=== PATIENT | male | born 1955 | race Two or more races ===

== ENCOUNTER 2016-12-30 12:40 | Emergency (ER) | payer BC ==
[~2016-12-30] VITALS: Ht 170.2 cm; Wt 127.0 kg
[~2016-12-30 12:40] MED LIST: CYCL1TAB18 PO; DOXA4TAB40 PO; FLUT250M2 IN; IBUP800T24 PO; MAGN400T23 PO; MECL25TA94 PO; TADA5TAB11 PO; TAM04C PO; TRAM-297 PO
[2016-12-30] MEDS ORDERED: SODIUM CHLORIDE 0.9% 1,000 ML IV ONE (14:12)
[2016-12-30 14:47] LABS: Basophils # (auto) 0.1 uL; Basophils % (auto) 0.7 % (0.0-2.0); Eosinophils # (auto) 0.1 uL; Hematocrit 52.7 % (41.0-53.0); Hemoglobin 17.5 g/dL (13.5-17.5); Lymphocytes # (auto) 1.9 uL; Lymphocytes % (auto) 18.3 % (10.0-50.0); Mean Corpuscular Hemoglobin 30.7 pg (28.0-32.0); Mean Corpuscular Hgb Conc. 33.3 g/dL (32.0-36.0); Mean Corpuscular Volume 92.4 fL (80.0-100.0); Mean Platelet Volume 9.6 fL (7.4-10.4); Monocytes # (auto) 0.7 uL; Monocytes % (auto) 6.5 % (0.0-12.0); Neutrophils # (auto) 7.6 uL; Neutrophils % (auto) 73.5 % (37.0-80.0); Platelet Count (auto) 195 10^3/uL (140-450); Red Cell Distribution Width 13.6 % (11.6-16.0); White Blood Cell 10.4 10^3/uL (4.4-10.8)
[2016-12-30 15:01] LABS: INR 1.03 (0.9-1.15); Partial Thromboplastin Time 26.2 sec (22.64-33.71); Prothrombin Time 10.6 sec (9.37-12.3)
[2016-12-30 15:07] LABS: Albumin 4.2 g/dL (3.4-5.0); Anion Gap 8 (5-15); BUN/Creatinine Ratio 22.5; Blood Urea Nitrogen 23 mg/dL (7-18); Calcium 8.5 mg/dL (8.5-10.1); Carbon Dioxide 31 mmol/L (21-32); Chloride 94 mmol/L (98-107); GFR African American 95 mL/min; GFR Non-African American 79 mL/min; Glucose 170 mg/dL (74-106); Potassium 3.5 mmol/L (3.5-5.1); Sodium 133 mmol/L (136-145)
[2016-12-30 15:11] LABS: Alkaline Phosphatase 119 U/L (45-117); Aspartate Aminotransferase 30 U/L (15-37); Bilirubin, Total 0.5 mg/dL (0.2-1.0); Total Protein 8.1 g/dL (6.4-8.2)
[2016-12-30 17:00] VITALS: BP 118/74
[2016-12-30 18:14] LABS: Urine Bilirubin Negative (Negative); Urine Blood TRACE /uL (Negative); Urine Color Yellow (Yellow); Urine Glucose Normal (Normal); Urine Ketone Negative (Negative); Urine Nitrite Negative (Negative); Urine RBC 3 /hpf (0 - 3); Urine Squamous Epithelial Cell FEW /hpf (<5); Urine Urobilinogen Normal (Negative)
== END 2016-12-30 17:31 | disposition home or self-care (01) ==
LOC: ER 12:50
DX: M62.838 Other muscle spasm (principal); R42 Dizziness and giddiness; I10 Essential (primary) hypertension; M54.9 Dorsalgia, unspecified; K46.9 Unspecified abdominal hernia without obstruction or gangrene; Z90.89 Acquired absence of other organs; Z91.041 Radiographic dye allergy status
CPT/HCPCS: 36415; 71020; 80053; 81001; 84484; 85025; 85610; 85730; 93005; 94761; 96360

== ENCOUNTER 2021-08-25 14:01 | Emergency (ER) | payer BC, OTHER ==
[~2021-08-25] VITALS: Ht 170.2 cm; Wt 122.9 kg
[~2021-08-25 14:01] MED LIST changes: +CYCL-839 PO; -CYCL1TAB18 PO; -DOXA4TAB40 PO; +DOXA4TAB6 PO; -IBUP800T24 PO; +IBUP800T27 PO
[2021-08-25 21:10] LABS: Urine Bacteria FEW /hpf (None Seen); Urine Blood Negative /uL (Negative); Urine Mucus FEW (None Seen); Urine Specific Gravity 1.023 (1.001-1.035); Urine WBC 60 /hpf (0 - 3)
[2021-08-25 21:30] VITALS: BP 144/63
== END 2021-08-25 21:44 | disposition home or self-care (01) ==
LOC: ER 14:01
DX: N39.0 Urinary tract infection, site not specified (principal); N43.3 Hydrocele, unspecified; J44.9 Chronic obstructive pulmonary disease, unspecified; E11.9 Type 2 diabetes mellitus without complications; I10 Essential (primary) hypertension
CPT/HCPCS: 76870; 81001

== ENCOUNTER → 2023-06-09 | Outpatient (CLI) | payer OTHER ==
[~2023-06-09] VITALS: Ht 170.2 cm; Wt 120.2 kg
[~2023-06-09] MED LIST changes: +ADENOSINE 101 MG in GIVE UN-DILUTED 0 ML IV STA; -DOXA4TAB6 PO; +DOXA4TAB83 PO; +IBUP-1456 PO; -IBUP800T27 PO; -TAM04C PO; +TAMS-35 PO
== END | disposition home or self-care (01) ==
LOC: XYW 09:13
PROVIDERS: ATTEND Internal Medicine
DX: Z01.810 Encounter for preprocedural cardiovascular examination (principal); I25.9 Chronic ischemic heart disease, unspecified; R07.9 Chest pain, unspecified; I10 Essential (primary) hypertension; E11.9 Type 2 diabetes mellitus without complications
CPT/HCPCS: 78452; 93017; A9500; J0153

== ENCOUNTER 2023-08-19 09:31 | Day surgery (SDC) | payer OTHER ==
[~2023-08-19] VITALS: Ht 170.2 cm; Wt 117.9 kg
[2023-08-19] VITALS (9 sets, daily range): BP systolic 121–155; BP diastolic 64–96; PULSE 64–70; RESP 11–17; TEMP 97.8; O2SAT 89–93
[~2023-08-19 09:31] MED LIST changes: -ADENOSINE 101 MG in GIVE UN-DILUTED 0 ML IV STA; +ATOR20TA50 PO; -DOXA4TAB83 PO; +FINA5TAB4 PO; +FURO20TA3 PO; +GLIP5TAB12 PO; +HYDR-4902 PO; -IBUP-1456 PO; +INSUINJ37 SC; +LISI40TA16 PO; -MAGN400T23 PO; +METF-370 PO; -TADA5TAB11 PO; -TAMS-35 PO; +TRAZ-228 PO
[2023-08-19] MEDS ORDERED: ANGIOMAX 250 MG VIAL IV ONE (11:34)
[2023-08-19] MEDS ORDERED: fentaNYL CITRATE 100 MCG/2 ML VL ONE (11:35)
[2023-08-19] MEDS ORDERED: HEPARIN SODIUM (PORCINE) 5000 UNITS/ML 1ML VIAL ONE (11:35)
[2023-08-19] MEDS ORDERED: SODIUM CHL 0.9% 0 ML ONE (11:35)
[2023-08-19] MEDS ORDERED: LIDOCAINE 2%HCL (LOCAL ANESTH.) INJ 20ML MDV ONE (11:35)
[2023-08-19] MEDS ORDERED: VERAPAMIL 2.5MG/ML INJ 2ML VIAL IV ONE (11:35)
[2023-08-19] MEDS ORDERED: MIDAZOLAM HCL 2MG/2ML 2ml VIAL (1mg/ml) ONE (11:35)
[2023-08-19] MEDS ORDERED: diphenhdrAMINE HCL 50 MG/1 ML VL ONE (11:47)
[2023-08-19] MEDS ORDERED: FAMOTIDINE (10MG/ML) 2ML VL IV ONE (11:47)
[2023-08-19] MEDS ORDERED: methylPREDNISolone SOD SUCC 125 MG/2 ML VL ONE (11:47)
[2023-08-19] MEDS ORDERED: EPINEPHrine HCL 1 MG/10 ML SYRG ONE (12:13)
[2023-08-19] MEDS ORDERED: IODIXANOL 320MG/ML 100ML BTL IV ONE (12:13)
== END 2023-08-19 14:55 | disposition home or self-care (01) ==
LOC: CATH 09:31
PROVIDERS: ATTEND Internal Medicine
DX: I25.10 Atherosclerotic heart disease of native coronary artery without angina pectoris (principal); I25.9 Chronic ischemic heart disease, unspecified
CPT/HCPCS: 93458; C1894; J1200; J1644; J2250; J2930; J3010; J3490; Q9967; 99152

== ENCOUNTER 2024-06-14 06:07 | Inpatient (IN) | payer OTHER ==
[~2024-06-14] VITALS: Ht 170.2 cm; Wt 112.9 kg
[~2024-06-14 06:07] MED LIST changes: -ATOR20TA50 PO; +ATOR40TA52 PO; -CYCL-839 PO; -FINA5TAB4 PO; -FLUT250M2 IN; -GLIP5TAB12 PO; +GLIP5TAB21 PO; +IBUP-1455 PO; -MECL25TA94 PO; +OMEP-448 PO; +SITA100T7 PO; -TRAM-297 PO
[2024-06-14] MEDS: LIDOCAINE 2% JELLY 11ml (GLYDO) ONE (06:37)
[2024-06-14] MEDS: TRANEXAMIC ACID 20 ML ONE (06:37)
[2024-06-14] MEDS: levoFLOXacin 750MG 150 ML IV ONE (07:00)
[2024-06-14] MEDS ORDERED: LIDOCAINE 1% (LOCAL ANESTH.) PF 5ml SDV ONE (07:02)
[2024-06-14] MEDS: CHLORHEXIDINE 4% TOPICAL soln 118ml TOP ONE (07:09)
[2024-06-14] MEDS ORDERED: fentaNYL CITRATE 100 MCG/2 ML VL ONE ×2 (07:14→08:34)
[2024-06-14] MEDS ORDERED: KETAMINE 50mg/ML 1ml syringe ONE (07:14)
[2024-06-14] MEDS ORDERED: MEPERIDINE HCL (50 MG/ML) 1 ML VIAL ONE (07:14)
[2024-06-14] MEDS ORDERED: DexAMETHasone SOD PHOS 10MG/1ML VIAL INJ ONE (07:15)
[2024-06-14] MEDS ORDERED: SODIUM CHLORIDE LOCK 50 ML ONE ×2 (07:15→09:15)
[2024-06-14] MEDS ORDERED: ONDANSETRON HCL 4 MG/2 ML VIAL ONE (07:15)
[2024-06-14] MEDS ORDERED: PROPOFOL 10 MG/ML 20 ML IV ONE ×2 (07:15→09:15)
[2024-06-14] MEDS ORDERED: ROCURONIUM 10MG/ML 10ML VIAL IV ONE (07:15)
[2024-06-14] MEDS ORDERED: MIDAZOLAM HCL 2MG/2ML 2ml VIAL (1mg/ml) ONE (07:15)
[2024-06-14] MEDS ORDERED: LIDOCAINE 1% INJ PF 5ML AMP ONE (07:15)
[2024-06-14] MEDS: ceFAZolin 2 GM/D5W50ml 50 ML IV ONE (07:17)
[2024-06-14 08:27] LABS: Base Excess -3.4 mmol/L (-2.0-3.0)
[2024-06-14] MEDS ORDERED: ONDANSETRON HCL 4 MG/2 ML VIAL IV PRN (10:45)
[2024-06-14] MEDS ORDERED: ACETAMINOPHEN 325 MG TAB PO PRN (10:45)
[2024-06-14] MEDS ORDERED: NITROGLYCERIN 0.4 MG SL TAB SL PRN (10:45)
[2024-06-14 10:46] VITALS: PULSE 79; RESP 16; O2SAT 93
[2024-06-14] MEDS ORDERED: MORPHINE SULFATE INJ 2 MG/ml SYRG IV PRN (11:00)
[2024-06-14] MEDS ORDERED: HYDROmorphone HCL 2 MG/ML VL/or syr IV PRN ×2 (11:00)
[2024-06-14] MEDS: KETOROLAC TROMETH 30 MG/ML 1ML VIAL IV ONE (11:00)
[2024-06-14] MEDS ORDERED: fentaNYL CITRATE 100 MCG/2 ML VL IV PRN (11:00)
[2024-06-14] MEDS: METOCLOPRAMIDE HCL 5MG/ml INJ 2ml VIAL IV ONE (11:00)
[2024-06-14] MEDS: ACCU-CHEK COMFORT CURVE STRIP VI ONE (11:00)
[2024-06-14] MEDS: hydrALAZINE HCL 20 MG/ML VL ONE (13:13)
[2024-06-14] MEDS: hydrALAZINE HCL 20 MG/ML VL IV ONE ×2 (13:13→13:15)
[2024-06-14 14:22] VITALS: BP 170/96; RESP 18; TEMP 97.4; O2SAT 95
[2024-06-14 14:24] VITALS: BP 170/96; PULSE 95; RESP 18; TEMP 97.4; O2SAT 95
[2024-06-14] MEDS: CYCLOBENZAPRINE HCL 10 MG TAB PO SCH (14:40)
[2024-06-14] MEDS: ceFAZolin 1GM/50ML 50 ML IV SCH (14:40)
[2024-06-14] MEDS: MORPHINE SULFATE INJ 2 MG/ml SYRG IV PRN ×2 (14:42→23:01)
[2024-06-14] MEDS ORDERED: MECL-90 PO (15:56)
[2024-06-14 17:30] VITALS: BP 180/100; PULSE 99; RESP 20; TEMP 98.3; O2SAT 94
[2024-06-14] MEDS: LISINOPRIL 20 MG TAB PO ONE (18:40)
[2024-06-14] MEDS ORDERED: LOSARTAN POTASSIUM 50 MG TAB PO ONE (18:45)
[2024-06-14 20:00] VITALS: PULSE 100; PULSE 110; RESP 20; O2SAT 96
[2024-06-14] MEDS: HYDROcodone-ACET 10/325MG TAB PO PRN (20:28)
[2024-06-14] MEDS: D5W/SOD CHLO 0.9% 1,000 ML IV SCH (20:45)
[2024-06-14 21:00] VITALS: PULSE 112; RESP 22; TEMP 98.8; O2SAT 93
[2024-06-14] MEDS: DOCUSATE SOD 100 MG CAP PO SCH (22:00)
[2024-06-14] MEDS: hydrALAZINE HCL 20 MG/ML VL IV PRN (22:11)
[2024-06-15] VITALS (13 sets, daily range): BP systolic 147–180; BP diastolic 73–95; PULSE 100–123; RESP 20–22; TEMP 98.2–98.8; O2SAT 85–96
[2024-06-15] MEDS: HYDROcodone-ACET 10/325MG TAB PO PRN (02:22)
[2024-06-15] MEDS ORDERED: LOSARTAN POTASSIUM 50 MG TAB PO SCH (10:00)
[2024-06-15] MEDS: LISINOPRIL 20 MG TAB PO SCH (10:12)
[2024-06-15] MEDS: MORPHINE SULFATE INJ 2 MG/ml SYRG IV PRN (10:13)
[2024-06-15] MEDS: ACETYLCYSTEINE 20%(200MG/ML) SOL 4ML NEB SCH (18:50)
[2024-06-15] MEDS: ALBUTEROL SULF 2.5 MG/0.5ML(0.5%) NEB SOLN NEB SCH (18:50)
[2024-06-15] MEDS: IPRATROPIUM BROM 0.5 MG/2.5ML INH SOL NEB SCH (18:50)
[2024-06-16] VITALS (19 sets, daily range): BP systolic 125–181; BP diastolic 75–94; PULSE 104–181; RESP 16–91; TEMP 97.9–100.2; O2SAT 87–96
[2024-06-16 13:53] LABS: Basophils # (auto) 0.1 10 ^3/uL (0-0.2); Basophils % (auto) 0.5 % (0.0-2.0); Eosinophils # (auto) 0 10 ^3/uL (0-0.8); Hematocrit 46.8 % (41.0-53.0); Hemoglobin 15.8 g/dL (13.5-17.5); Lymphocytes # (auto) 0.9 10 ^3/uL (0.4-5.4); Lymphocytes % (auto) 4.6 % (10.0-50.0); Mean Corpuscular Hemoglobin 29.8 pg (28.0-32.0); Mean Corpuscular Hgb Conc. 33.8 g/dL (32.0-36.0); Mean Corpuscular Volume 88.3 fL (80.0-100.0); Monocytes # (auto) 1.4 10 ^3/uL (0-1.3); Monocytes % (auto) 6.9 % (0.0-12.0); Neutrophils # (auto) 17.7 10 ^3/uL (1.6-8.6); Platelet Count (auto) 161 10^3/uL (140-450); Red Cell Distribution Width 16.1 % (11.8-14.3); White Blood Cell 20.1 10^3/uL (4.4-10.8)
[2024-06-16 14:07] LABS: Chloride 101 mmol/L (98-107); Potassium 3.4 mmol/L (3.5-5.1); Sodium 133 mmol/L (136-145)
[2024-06-16 14:08] LABS: Anion Gap 7 (5-15); Calcium 9.6 mg/dL (8.7-10.4); Carbon Dioxide 25 mmol/L (20-30)
[2024-06-16 14:13] LABS: BUN/Creatinine Ratio 12.8 (10.0-20.0); Blood Urea Nitrogen 10 mg/dL (9-23); Glucose 251 mg/dL (74-106)
[2024-06-16] MEDS ORDERED: DEXTROSE (50%) 50ML SYRG IV PRN (21:30)
[2024-06-16] MEDS: InsuLIN REG 1unit/0.01ml Soln (100units/ml) SC SCH (22:00)
[2024-06-16] MEDS: ACCU-CHEK COMFORT CURVE STRIP VI SCH (22:39)
[2024-06-17] VITALS (18 sets, daily range): BP systolic 125–144; BP diastolic 74–92; PULSE 93–144; RESP 16–76; TEMP 97.6–98.9; O2SAT 91–96
[2024-06-17] MEDS ORDERED: hydrALAZINE HCL 20 MG/ML VL IV PRN (01:00)
[2024-06-17] MEDS: SODIUM CHLORIDE 0.9% 250 ML IV ONE (01:45)
[2024-06-17 01:46] LABS: Urine Bacteria FEW /hpf (None Seen); Urine Blood 1+ /uL (Negative); Urine Clarity Clear (Clear); Urine Color Yellow (Yellow); Urine Hyaline Cast FEW /lpf (0 - 2); Urine Mucus FEW (None Seen); Urine Protein, UAD 1+ (Negative); Urine Specific Gravity 1.025 (1.001-1.035); Urine Urobilinogen Normal (Negative); Urine WBC 6 /hpf (0 - 3); Urine pH 6.5 (5.0-9.0)
[2024-06-17 02:19] LABS: Hematocrit 42.4 % (41.0-53.0); Hemoglobin 14.5 g/dL (13.5-17.5)
[2024-06-17] MEDS: PIPERACILLIN-TAZOB 3.375GM 100 ML IV SCH (06:03)
[2024-06-17 12:51] LABS: Basophils # (auto) 0.1 10 ^3/uL (0-0.2); Basophils % (auto) 0.7 % (0.0-2.0); Eosinophils # (auto) 0 10 ^3/uL (0-0.8); Eosinophils % (auto) 0.2 % (0.0-7.0); Hematocrit 42.8 % (41.0-53.0); Hemoglobin 14.8 g/dL (13.5-17.5); Lymphocytes # (auto) 1.4 10 ^3/uL (0.4-5.4); Lymphocytes % (auto) 8.8 % (10.0-50.0); Mean Corpuscular Hemoglobin 30.6 pg (28.0-32.0); Mean Corpuscular Hgb Conc. 34.6 g/dL (32.0-36.0); Mean Corpuscular Volume 88.3 fL (80.0-100.0); Monocytes # (auto) 1.3 10 ^3/uL (0-1.3); Monocytes % (auto) 8.4 % (0.0-12.0); Neutrophils # (auto) 12.7 10 ^3/uL (1.6-8.6); Neutrophils % (auto) 81.9 % (37.0-80.0); Nucleated Red Blood Cells % 0.1 %; Platelet Count (auto) 156 10^3/uL (140-450); Red Blood Cells 4.84 10^6/uL (4.5-5.90); Red Cell Distribution Width 15.7 % (11.8-14.3); White Blood Cell 15.5 10^3/uL (4.4-10.8)
[2024-06-17 13:28] LABS: Alanine Aminotransferase 16 U/L (7-40); Albumin 4.3 g/dL (3.2-4.8); Alkaline Phosphatase 86 U/L (46-116); Anion Gap 5 (5-15); Aspartate Aminotransferase 15 U/L (13-40); BUN/Creatinine Ratio 16.5 (10.0-20.0); Blood Urea Nitrogen 13 mg/dL (9-23); Calcium 9.4 mg/dL (8.7-10.4); Carbon Dioxide 28 mmol/L (20-30); Chloride 103 mmol/L (98-107); Glucose 244 mg/dL (74-106); Potassium 3.3 mmol/L (3.5-5.1); Sodium 136 mmol/L (136-145)
[2024-06-17 13:29] LABS: Bilirubin, Total 0.7 mg/dL (0.2-1.0); Total Protein 7.6 g/dL (5.7-8.2)
[2024-06-17] MEDS: POTASSIUM CHLORIDE 40 MEQ, LIDOCAINE 1% (LOCAL ANESTH.) 4 ML in SODIUM CHL 0.9% 250 ML IV ONE (14:48)
[2024-06-18] VITALS (17 sets, daily range): BP systolic 121–170; BP diastolic 77–87; PULSE 89–122; RESP 18–24; TEMP 97.5–98.5; O2SAT 88–100
[2024-06-18 06:51] LABS: Basophils # (auto) 0 10 ^3/uL (0-0.2); Basophils % (auto) 0.4 % (0.0-2.0); Eosinophils # (auto) 0.1 10 ^3/uL (0-0.8); Eosinophils % (auto) 1.5 % (0.0-7.0); Hematocrit 39.2 % (41.0-53.0); Hemoglobin 13.8 g/dL (13.5-17.5); Lymphocytes # (auto) 1.1 10 ^3/uL (0.4-5.4); Lymphocytes % (auto) 10.6 % (10.0-50.0); Mean Corpuscular Hemoglobin 31.3 pg (28.0-32.0); Mean Corpuscular Hgb Conc. 35.2 g/dL (32.0-36.0); Mean Corpuscular Volume 88.8 fL (80.0-100.0); Monocytes % (auto) 9.6 % (0.0-12.0); Neutrophils # (auto) 7.8 10 ^3/uL (1.6-8.6); Neutrophils % (auto) 77.9 % (37.0-80.0); Platelet Count (auto) 137 10^3/uL (140-450); Red Blood Cells 4.42 10^6/uL (4.5-5.90); Red Cell Distribution Width 16.3 % (11.8-14.3)
[2024-06-18 07:10] LABS: Anion Gap 6 (5-15); Calcium 8.8 mg/dL (8.7-10.4); Carbon Dioxide 25 mmol/L (20-30); Chloride 106 mmol/L (98-107); Potassium 3.4 mmol/L (3.5-5.1); Sodium 137 mmol/L (136-145)
[2024-06-18 07:16] LABS: BUN/Creatinine Ratio 19.7 (10.0-20.0); Blood Urea Nitrogen 13 mg/dL (9-23); Glucose 225 mg/dL (74-106)
[2024-06-18 07:17] LABS: Magnesium 2.2 mg/dL (1.6-2.6)
[2024-06-18] MEDS: POTASSIUM CHL 20 Meq TABLET PO ONE (17:44)
== END 2024-06-18 21:40 | DRG 471 ==
LOC: SUR 06:07 → TELE 10:42 → TELE-EAST 14:00 → TELE-WESTW 06-16 15:36
PROVIDERS: ADMIT Orthopaedic Surgery; ATTEND Internal Medicine
PROC: 01N10ZZ Release Cervical Nerve, Open Approach (ICD-10-PCS; 2024-06-14)
PROC: 00NW0ZZ Release Cervical Spinal Cord, Open Approach (ICD-10-PCS; 2024-06-14)
PROC: 0RB30ZZ Excision of Cervical Vertebral Disc, Open Approach (ICD-10-PCS; 2024-06-14)
PROC: 4A11X4G Monitoring of Peripheral Nervous Electrical Activity, Intraoperative, External Approach (ICD-10-PCS; 2024-06-14)
PROC: 0RG20A0 Fusion of 2 or more Cervical Vertebral Joints with Interbody Fusion Device, Anterior Approach, Anterior Column, Open Approach (ICD-10-PCS; principal; 2024-06-14 07:36)
DX: M48.02 Spinal stenosis, cervical region (principal); J96.20 Acute and chronic respiratory failure, unspecified whether with hypoxia or hypercapnia; R65.11 Systemic inflammatory response syndrome (SIRS) of non-infectious origin with acute organ dysfunction; J44.0 Chronic obstructive pulmonary disease with (acute) lower respiratory infection; M50.023 Cervical disc disorder at C6-C7 level with myelopathy; E11.9 Type 2 diabetes mellitus without complications; I10 Essential (primary) hypertension; M50.123 Cervical disc disorder at C6-C7 level with radiculopathy; M62.838 Other muscle spasm; E78.00 Pure hypercholesterolemia, unspecified; Z91.041 Radiographic dye allergy status; Z79.4 Long term (current) use of insulin
CPT/HCPCS: 36415; 36600; 71045; 72040; 76000; 80048; 80053; 81001; 82805; 82962; 83605; 83735; 85014; 85018; 85025; 86850; 86900; 86901; 87040; 87205; 92610; 94640; 97110; 97116; 97163; 97530; G0378; J1100; J1815; J2001; J2250; J2405; J2543; J2704; J7042

== ENCOUNTER 2024-06-19 08:55 | Emergency (ER) | payer OTHER ==
[~2024-06-19] VITALS: Ht 170.2 cm; Wt 90.0 kg
[~2024-06-19 08:55] MED LIST changes: +MECL-90 PO
[2024-06-19 09:29] VITALS: BP 176/90; PULSE 96; RESP 95; TEMP 98.1; O2SAT 95
== END 2024-06-19 10:43 | disposition home or self-care (01) ==
LOC: EDBD 08:55 → ER 08:55
DX: T81.89XD Other complications of procedures, not elsewhere classified, subsequent encounter (principal); I11.0 Hypertensive heart disease with heart failure; I50.9 Heart failure, unspecified; E11.9 Type 2 diabetes mellitus without complications; J44.9 Chronic obstructive pulmonary disease, unspecified; M19.90 Unspecified osteoarthritis, unspecified site; Z48.01 Encounter for change or removal of surgical wound dressing; Z85.9 Personal history of malignant neoplasm, unspecified; Z98.890 Other specified postprocedural states; Z79.899 Other long term (current) drug therapy; Z91.041 Radiographic dye allergy status; Y92.89 Other specified places as the place of occurrence of the external cause

== ENCOUNTER 2024-06-21 08:38 | Emergency (ER) | payer OTHER ==
[~2024-06-21] VITALS: Ht 167.6 cm; Wt 86.5 kg
[2024-06-21 09:00] VITALS: PULSE 95; RESP 16; O2SAT 90
[2024-06-21 09:41] LABS: Basophils # (auto) 0.1 10 ^3/uL (0-0.2); Basophils % (auto) 1.2 % (0.0-2.0); Eosinophils # (auto) 0.1 10 ^3/uL (0-0.8); Hematocrit 40.4 % (41.0-53.0); Lymphocytes # (auto) 1.2 10 ^3/uL (0.4-5.4); Lymphocytes % (auto) 14.2 % (10.0-50.0); Mean Corpuscular Hemoglobin 30.3 pg (28.0-32.0); Mean Corpuscular Hgb Conc. 34.6 g/dL (32.0-36.0); Mean Corpuscular Volume 87.6 fL (80.0-100.0); Monocytes # (auto) 0.8 10 ^3/uL (0-1.3); Neutrophils # (auto) 6.5 10 ^3/uL (1.6-8.6); Neutrophils % (auto) 74.6 % (37.0-80.0); Platelet Count (auto) 176 10^3/uL (140-450); Red Blood Cells 4.61 10^6/uL (4.5-5.90); Red Cell Distribution Width 15.4 % (11.8-14.3); White Blood Cell 8.7 10^3/uL (4.4-10.8)
[2024-06-21 09:59] LABS: Alanine Aminotransferase 21 U/L (7-40); Albumin 4.1 g/dL (3.2-4.8); Alkaline Phosphatase 84 U/L (46-116); Anion Gap 7 (5-15); Aspartate Aminotransferase 16 U/L (13-40); BUN/Creatinine Ratio 27.8 (10.0-20.0); Blood Urea Nitrogen 20 mg/dL (9-23); Calcium 8.9 mg/dL (8.7-10.4); Carbon Dioxide 27 mmol/L (20-30); Chloride 103 mmol/L (98-107); Glucose 171 mg/dL (74-106); Potassium 3.4 mmol/L (3.5-5.1); Sodium 137 mmol/L (136-145)
[2024-06-21 10:00] LABS: Bilirubin, Total 0.6 mg/dL (0.2-1.0); Total Protein 7.1 g/dL (5.7-8.2)
[2024-06-21 14:58] LABS: Urine Blood Negative /uL (Negative); Urine Clarity Clear (Clear); Urine Color Yellow (Yellow); Urine Protein, UAD TRACE (Negative); Urine Specific Gravity 1.027 (1.001-1.035); Urine Urobilinogen Normal (Negative)
[2024-06-21 17:34] VITALS: BP 130/74; PULSE 98; RESP 20; O2SAT 93
== END 2024-06-21 19:03 ==
LOC: ER 08:38 → EDBD 08:38 → ER 19:03
DX: N28.89 Other specified disorders of kidney and ureter (principal); E11.9 Type 2 diabetes mellitus without complications; E78.5 Hyperlipidemia, unspecified; I11.0 Hypertensive heart disease with heart failure; I50.9 Heart failure, unspecified; J44.9 Chronic obstructive pulmonary disease, unspecified; Z91.041 Radiographic dye allergy status
CPT/HCPCS: 36415; 74176; 80053; 81003; 85025

== ENCOUNTER 2024-09-27 15:54 | Emergency (ER) | payer OTHER ==
[~2024-09-27] VITALS: Ht 180.3 cm; Wt 91.0 kg
[2024-09-27 16:00] VITALS: BP 132/58; RESP 18; O2SAT 97
[2024-09-27 16:09] VITALS: PULSE 74
[2024-09-27] MEDS ORDERED: MECLIZINE HCL 25 MG TAB PO ONE (16:15)
--- NOTE | 2024-09-27 16:18 | ECG ---
[facility] Test Date: 2024-09-27 Test Time: 16:09:33 Pat Name: MERYL LEHMAN Department: er Room: Gender: M Forklift Picker: [email or web address] : 1955 Requested By: EMERGENCY EMERGENCY Order Number: [id number] Reading MD: Reyes Duarte Measurements Intervals [place] Rate: 74 P: 14 MO: 185 QRS: -69 QRSD: 102 T: 34 QT: 422 QTc: 469 Interpretive Statements Sinus rhythm Incomplete RBBB and LAFB RSR' in V1 or V2, right VCD or RVH Electronically Signed On 09-30-2024 10:24:09 PST by Reyes Duarte Please click the below link to view image of tracing.
--- NOTE | 2024-09-27 16:22 | ED.PDOC ---
HPI (NEURO) HPI Comments 69 year old male TANIYA presents to the ED with chief complaint of dizziness. Patient reports that he has been experiencing intermittent dizziness with associated SOB for the past 2 days. 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 Patient states he has been diagnosed with vertigo in the past. Patient's BG on scene was 206. Patient denies any chest pain, fever, chills, headache, N/V/D, or blurred vision. Chief Complaint: Dizziness Time Seen by MD: 16:17 Primary Care Provider: UNKNOWN Reviewed Notes: Nurses Notes, Factory Maintenance Technician Notes, Medications, Allergies Information Source: Patient, Spouse Mode of Arrival: EMS Severity: Moderate Dizziness/Weakness Severity: Unable to do activities Timing: Days Duration: Since onset Prehospital treatment: None Headache Quality: Aching Headache Location: Generalized Onset: At rest Circumstances: Spontaneous Symptoms: Vertigo Before: Normal Past Medical History PAST MEDICAL HISTORY: Arthritis, Cancer, CHF, COPD, DM, High Lipids, HTN Past Medical History (Other): Arrythmia Surgical History: Appendectomy, Tonsillectomy Surgical History (Other): Left hand surgery, neck surgery Family History Family History: Reviewed,noncontributory to illness Social History Smoker: Non-Smoker Alcohol: Denies ETOH Use Drugs: Denies Drug Use Lives In: Home Constitutional: denies: chills, diaphoresis, fatigue, fever, malaise, sweats, weakness, others EENTM: denies: blurred vision, double vision, ear bleeding, ear discharge, ear drainage, ear pain, ear ringing, eye pain, eye redness, hearing loss, mouth pain, mouth swelling, nasal discharge, nose bleeding, nose congestion, nose pain, photophobia, tearing, throat pain, throat swelling, voice changes, others Respiratory: reports: shortness of breath; denies: cough, hemoptysis, orthopnea, SOB at rest, SOB with excertion, stridor, wheezing, others Cardiovascular: denies: chest pain, dizzy spells, diaphoresis, Dyspnea on exe rtion, edema, irregular heart beat, left arm pain, lightheadedness, palpitations, PND, syncope, others Gastrointestinal: denies: abdomen distended, abdominal pain, blood streaked bowels, constipated, diarrhea, dysphagia, difficulty swallowing, hematemesis, melena, nausea, poor appetite, poor fluid intake, rectal bleeding, rectal pain, vomiting, others Genitourinary: denies: burning, dysuria, flank pain, frequency, hematuria, incontinence, penile discharge, penile sore, pain, testicle pain, testicle swelling, urgency, others Neurological: reports: dizziness; denies: fainting, headache, left sided numbness, left sided weakness, numbness, paresthesia, pre-existing deficit, ri ght sided numbness, right sided weakness, seizure, speech problems, tingling, tremors, weakness, others Musculoskeletal: denies: back pain, gout, joint pain, joint swelling, muscle pain, muscle stiffness, neck pain, others Integumetry: denies: bruises, change in color, change in hair/nails, dryness, laceration, lesions, lumps, rash, wounds, others Allergic/Immunocompromised: denies: Difficulty Healing, Frequent Infections, Hives, Itching, others Hematologic/Lymphatic: denies: anemia, blood clots, easy bleeding, easy bruising, swollen glands, others Endocrine: denies: excessive hunger, excessive sweating, excessive thirst, excessive urination, flushing, intolerance to cold, intolerance to heat, unexplained weight gain, unexplained weight loss, others Psychiatric: denies: anxiety, bipolar disorder, depression, hopeless, panic disorder, schizophrenia, sleepless, suicidal, others All Other Systems: Reviewed and Negative Physical Exam General Appearance: No Apparent Distress HEENT: Normal ENT Inspection, Pharynx Normal, TMs Normal Neck: Full Range of Motion, Non-Tender, Normal, Normal Inspection Respiratory: Chest Non-Tender, Lungs Clear, No Accessory Muscle Use, No Respiratory Distress, Normal Breath Sounds Cardiovascular: No Edema, No JVD, No Murmur, No Gallop, Normal Peripheral Pulses, Regular Rate/Rhythm Breast Exam: Deferred Gastrointestinal: No Organomegaly, Non Tender, No Pulsatile Mass, Normal Bowel Sounds, Soft Genitalia: Deferred Pelvic: Deferred Rectal: Deferred Extremities: No calf tenderness, Normal capillary refill, Normal inspection, Normal range of motion, Non-tender, No pedal edema Musculoskeletal : Apperance: Normal Neurologic: Alert, regulatory compliance director II-XII nml as Tested, No Motor Deficits, Normal Affect, Normal Mood, No Sensory Deficits Cerebellar Function: Normal Reflexes: Normal Skin: Dry, Normal Color, Warm Lymphatic: No Adenopathy Was a procedure done? Was a procedure done?: No Differential Diagnosis (SZ) Seizure: CVA/TIA, Idiopathic, Other (Vertigo) X-Ray, Labs, Meds, VS Vital Signs Date Time Temp Pulse Resp B/P (MAP) Pulse Ox O2 Delivery O2 Flow Rate FiO2 09/27/24 16:09 74 09/27/24 16:00 98.6 72 18 132/58 (82) 97 Lab Test 09/27/24 17:42 Range/Units White Blood Count 8.2 4.4-10.8 10^3/uL Red Blood Count 4.90 4.5-5.90 10^6/uL Hemoglobin 14.5 13.5-17.5 g/dL Hematocrit 43.5 41.0-53.0 % Mean Corpuscular Volume 88.7 80.0-100.0 fL Mean Corpuscular Hemoglobin 29.6 28.0-32.0 pg Mean Corpuscular Hemoglobin Concent 33.4 32.0-36.0 g/dL Red Cell Distribution Width 15.1 H 11.8-14.3 % Platelet Count 141 140-450 10^3/uL Mean Platelet Volume 9.3 6.9-10.8 fL Neutrophils (%) (Auto) 66.0 37.0-80.0 % Lymphocytes (%) (Auto) 23.2 10.0-50.0 % Monocytes (%) (Auto) 8.0 0.0-12.0 % Eosinophils (%) (Auto) 1.3 0.0-7.0 % Basophils (%) (Auto) 1.5 0.0-2.0 % Neutrophils # (Auto) 5.4 1.6-8.6 10 ^3/uL Lymphocytes # (Auto) 1.9 0.4-5.4 10 ^3/uL Monocytes # (Auto) 0.7 0-1.3 10 ^3/uL Eosinophils # (Auto) 0.1 0-0.8 10 ^3/uL Basophils # (Auto) 0.1 0-0.2 10 ^3/uL Nucleated Red Blood Cells 0.1 % Sodium Level 139 136-145 mmol/L Potassium Level 3.6 3.5-5.1 mmol/L Chloride Level 105 98-107 mmol/L Carbon Dioxide Level 26 20-31 mmol/L Anion Gap 8 5-15 Blood Urea Nitrogen 14 9-23 mg/dL Creatinine 0.82 0.700-1.30 mg/dL Glomerular Filtration Rate Calc 95 >90 mL/min BUN/Creatinine Ratio 17.1 10.0-20.0 Serum Glucose 178 H 74-106 mg/dL Calcium Level 9.1 8.7-10.4 mg/dL CT Head indicates: No acute intracranial process. The patient has a CBC and chemistry panel which are within normal limits The patient was given Antivert here in the emergency department's The patient will return to the emergency department's the condition worsens The patient will follow up with the primary care doctor The patient was given a prescription of Antivert. Images Reviewed?: Images reviewed and evaluated by me Time of 1ST Reevaluation: 18:54 Reevaluation 1ST: Improved Patient Education/Counseling: Diagnosis, Treatment, Prognosis, Need For Follow Up Family Education/Counseling: No Family Present Departure 1 Departure Time of Disposition: 18:55 Impression: Primary Impression: Vertigo Disposition: 01 HOME / SELF CARE / HOMELESS Condition: Fair Discharged With: Self Critical Care Note Critical Care Time?: No Stability Stability form required: No Heart Score Heart Score: Heart Score Response (Comments) Value History N/A 0 EKG N/A 0 Age N/A 0 Risk Factors N/A 0 Troponin N/A 0 Total 0 I personally scribed for JOSEPH FARIA MD ([email or web address]) on 09/27/24 at 16:22. Electronically submitted by Xiang Chilel ([email or web address]). I personally scribed for JOSEPH FARIA MD ([email or web address]) on 09/27/24 at 17:45. Electronically submitted by Xiang Chilel ([email or web address]). JOSEPH FARIA MD Sep 27, 2024 16:22
--- NOTE | 2024-09-27 17:00 | DVH ---
EXAM: CT HEAD WITHOUT CONTRAST HISTORY: dizziness COMPARISON: None TECHNIQUE: Axial images of the head were obtained and reformatted in coronal and sagittal planes. All CT scans at this medical facility are performed using dose modulation techniques as appropriate t o a performed exam including the following: Automated exposure control was utilized; adjustment of th e MA and/or KV according to patient size; and use of iterative reconstruction technique. CT Dose: CTDI volume is 60.31 mGy. Dose-length product is 1087.29 mGy*cm FINDINGS: There is no evidence of acute intracranial hemorrhage, mass, mass effect midline shift. There is no h ydrocephalus or extra-axial fluid collection. There are mild patchy chronic small-vessel ischemic ch anges in the supratentorial white matter. Jovel-white matter differentiation is maintained. The visualized paranasal sinuses and mastoid air cells are clear. The calvarium is intact. IMPRESSION: 1. No acute intracranial process. HS:Y
[2024-09-27 17:59] LABS: Basophils # (auto) 0.1 10 ^3/uL (0-0.2); Basophils % (auto) 1.5 % (0.0-2.0); Eosinophils # (auto) 0.1 10 ^3/uL (0-0.8); Eosinophils % (auto) 1.3 % (0.0-7.0); Hematocrit 43.5 % (41.0-53.0); Hemoglobin 14.5 g/dL (13.5-17.5); Lymphocytes # (auto) 1.9 10 ^3/uL (0.4-5.4); Lymphocytes % (auto) 23.2 % (10.0-50.0); Mean Corpuscular Hemoglobin 29.6 pg (28.0-32.0); Mean Corpuscular Hgb Conc. 33.4 g/dL (32.0-36.0); Mean Corpuscular Volume 88.7 fL (80.0-100.0); Monocytes # (auto) 0.7 10 ^3/uL (0-1.3); Neutrophils # (auto) 5.4 10 ^3/uL (1.6-8.6); Nucleated Red Blood Cells % 0.1 %; Platelet Count (auto) 141 10^3/uL (140-450); Red Cell Distribution Width 15.1 % (11.8-14.3); White Blood Cell 8.2 10^3/uL (4.4-10.8)
[2024-09-27 18:06] LABS: Chloride 105 mmol/L (98-107); Potassium 3.6 mmol/L (3.5-5.1); Sodium 139 mmol/L (136-145)
[2024-09-27 18:07] LABS: Anion Gap 8 (5-15); Calcium 9.1 mg/dL (8.7-10.4); Carbon Dioxide 26 mmol/L (20-31)
[2024-09-27 18:12] LABS: BUN/Creatinine Ratio 17.1 (10.0-20.0); Blood Urea Nitrogen 14 mg/dL (9-23)
[2024-09-27 18:17] LABS: Glucose 178 mg/dL (74-106)
== END 2024-09-27 22:50 | disposition home or self-care (01) ==
LOC: ER 15:54 → EDBD 15:54 → ER 22:49
DX: R55 Syncope and collapse (principal); R06.02 Shortness of breath; I11.0 Hypertensive heart disease with heart failure; I50.9 Heart failure, unspecified; E11.9 Type 2 diabetes mellitus without complications; J44.9 Chronic obstructive pulmonary disease, unspecified; M19.90 Unspecified osteoarthritis, unspecified site; Z90.49 Acquired absence of other specified parts of digestive tract; Z90.89 Acquired absence of other organs; Z98.890 Other specified postprocedural states
CPT/HCPCS: 36415; 70450; 80048; 85025; 93005

== ENCOUNTER 2025-01-04 18:55 | Emergency (ER) | payer OTHER ==
[~2025-01-04] VITALS: Ht 170.2 cm; Wt 109.2 kg
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
--- NOTE | 2025-01-04 19:35 | ECG ---
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
--- NOTE | 2025-01-04 19:51 | DVH ---
CHEST RADIOGRAPH Indication: htn Technique: Single frontal view of the chest was obtained COMPARISON: XY CHEST PORTABLE on DOS: 06/16/24 FINDINGS: Lines and Tubes: None Lungs: Clear Pleura: No effusion.No pneumothorax. Cardiomediastinal contours: Mild cardiomegaly. Bones: Unremarkable IMPRESSION: No acute abnormality identified. Mild cardiomegaly.
[2025-01-04 20:06] LABS: Chloride 103 mmol/L (98-107); Potassium 3.9 mmol/L (3.5-5.1)
[2025-01-04 20:07] LABS: Anion Gap 8 (5-15); Calcium 9.4 mg/dL (8.7-10.4); Carbon Dioxide 24 mmol/L (20-31)
[2025-01-04 20:09] LABS: Basophils # (auto) 0.1 10 ^3/uL (0-0.2); Basophils % (auto) 1.3 % (0.0-2.0); Eosinophils # (auto) 0.1 10 ^3/uL (0-0.8); Eosinophils % (auto) 0.8 % (0.0-7.0); Hematocrit 44.6 % (41.0-53.0); Hemoglobin 15.9 g/dL (13.5-17.5); Lymphocytes # (auto) 1.2 10 ^3/uL (0.4-5.4); Lymphocytes % (auto) 13.3 % (10.0-50.0); Mean Corpuscular Hemoglobin 31.1 pg (28.0-32.0); Mean Corpuscular Hgb Conc. 35.7 g/dL (32.0-36.0); Mean Corpuscular Volume 87.1 fL (80.0-100.0); Monocytes # (auto) 0.7 10 ^3/uL (0-1.3); Monocytes % (auto) 7.8 % (0.0-12.0); Neutrophils # (auto) 6.7 10 ^3/uL (1.6-8.6); Neutrophils % (auto) 76.8 % (37.0-80.0); Platelet Count (auto) 125 10^3/uL (140-450); Red Blood Cells 5.13 10^6/uL (4.5-5.90); White Blood Cell 8.8 10^3/uL (4.4-10.8)
[2025-01-04 20:12] LABS: BUN/Creatinine Ratio 18.8 (10.0-20.0); Blood Urea Nitrogen 15 mg/dL (9-23)
[2025-01-04 20:20] LABS: Sodium 135 mmol/L (136-145)
[2025-01-04 20:21] LABS: Glucose 172 mg/dL (74-106)
[2025-01-04 22:50] VITALS: BP 148/89; PULSE 87; RESP 18; TEMP 98.1; O2SAT 95
[2025-01-04] MEDS: cloNIDine HCL 0.1 MG TAB PO ONE (22:59)
== END 2025-01-04 23:47 | disposition home or self-care (01) ==
LOC: EDUNIT# 18:55 → EDBD 18:55 → ER 18:59
DX: F43.0 Acute stress reaction (principal); I11.0 Hypertensive heart disease with heart failure; I50.9 Heart failure, unspecified; E11.9 Type 2 diabetes mellitus without complications; E78.5 Hyperlipidemia, unspecified; M19.90 Unspecified osteoarthritis, unspecified site; J44.9 Chronic obstructive pulmonary disease, unspecified; Z90.49 Acquired absence of other specified parts of digestive tract; Z90.89 Acquired absence of other organs; Z91.040 Latex allergy status; Z79.899 Other long term (current) drug therapy; Z79.4 Long term (current) use of insulin; Z79.84 Long term (current) use of oral hypoglycemic drugs
CPT/HCPCS: 36415; 71045; 80048; 82947; 84484; 85025; 93005

== ENCOUNTER 2025-01-15 13:44 | Emergency (ER) | payer OTHER ==
[~2025-01-15] VITALS: Ht 170.2 cm; Wt 108.0 kg
--- NOTE | 2025-01-15 14:13 | ED.PDOC ---
HPI (NEURO) HPI Comments 69 y/o M, with PMHX of HTN, HLD, DM, arthritis CHF, cancer, COPD, and arthritis presents to the ED for CC of dizziness. Patient states, he has been having high blood pressure readings with associated symptoms of shortness of breath, numbness and tingling in the hands xdays. Patient denies active chest pain, palpitations, nausea, vomiting, or headache. No other symptoms or modifying factors present at this time. Chief Complaint: Dizziness Time Seen by MD: 14:06 Primary Care Provider: Reviewed Notes: Nurses Notes, Medications, Allergies Information Source: Patient Mode of Arrival: EMS Severity: Moderate Headache Severity: None Timing: Days Duration: Since onset Prehospital treatment: None Numbness Location: Generalized Onset: At rest Circumstances: Spontaneous Symptoms: Vertigo, Numbness History of: DM, Hypertension Modifying factors: Nothing Associated Signs and Symptoms: Numbness Past Medical History PAST MEDICAL HISTORY: Arthritis, Cancer, CHF, COPD, DM, High Lipids, HTN Surgical History: Appendectomy, Tonsillectomy Family History Family History: Reviewed,noncontributory to illness Social History Smoker: Non-Smoker Alcohol: Denies ETOH Use Drugs: Denies Drug Use Lives In: Home Constitutional: denies: chills, diaphoresis, fatigue, fever, malaise, sweats, weakness, others EENTM: denies: blurred vision, double vision, ear bleeding, ear discharge, ear drainage, ear pain, ear ringing, eye pain, eye redness, hearing loss, mouth pain, mouth swelling, nasal discharge, nose bleeding, nose congestion, nose pain, photophobia, tearing, throat pain, throat swelling, voice changes, others Respiratory: reports: shortness of breath; denies: cough, hemoptysis, orthopnea, SOB at rest, SOB with excertion, stridor, wheezing, others Cardiovascular: denies: chest pain, dizzy spells, diaphoresis, Dyspnea on ex ertion, edema, irregular heart beat, left arm pain, lightheadedness, palpitations, PND, syncope, others Gastrointestinal: denies: abdomen distended, abdominal pain, blood streaked bowels, constipated, diarrhea, dysphagia, difficulty swallowing, hematemesis, melena, nausea, poor appetite, poor fluid intake, rectal bleeding, rectal pain, vomiting, others Genitourinary: denies: burning, dysuria, flank pain, frequency, hematuria, incontinence, penile discharge, penile sore, pain, testicle pain, testicle swelling, urgency, others Neurological: reports: dizziness, numbness, tingling; denies: fainting, headache, left sided numbness, left sided weakness, paresthesia, pre-existing deficit, right sided numbness, right sided weakness, seizure, speech problems, tremors, weakness, others Musculoskeletal: denies: back pain, gout, joint pain, joint swelling, muscle pain, muscle stiffness, neck pain, others Integumetry: denies: bruises, change in color, change in hair/nails, dryness, laceration, lesions, lumps, rash, wounds, others Allergic/Immunocompromised: denies: Difficulty Healing, Frequent Infections, Hives, Itching, others Hematologic/Lymphatic: denies: anemia, blood clots, easy bleeding, easy bruising, swollen glands, others Endocrine: denies: excessive hunger, excessive sweating, excessive thirst, excessive urination, flushing, intolerance to cold, intolerance to heat, unexplained weight gain, unexplained weight loss, others Psychiatric: denies: anxiety, bipolar disorder, depression, hopeless, panic disorder, schizophrenia, sleepless, suicidal, others All Other Systems: Reviewed and Negative Physical Exam General Appearance: No Apparent Distress, Normal HEENT: Normal ENT Inspection, Pharynx Normal, TMs Normal Neck: Full Range of Motion, Non-Tender, Normal, Normal Inspection Respiratory: Chest Non-Tender, Lungs Clear, No Accessory Muscle Use, No Respiratory Distress, Normal Breath Sounds Cardiovascular: No Edema, No JVD, No Murmur, No Gallop, Normal Peripheral Pulses, Regular Rate/Rhythm Breast Exam: Deferred Gastrointestinal: No Organomegaly, Non Tender, No Pulsatile Mass, Normal Bowel Sounds, Soft Genitalia: Deferred Pelvic: Deferred Rectal: Deferred Extremities: No calf tenderness, Normal capillary refill, Normal inspection, Normal range of motion, Non-tender, No pedal edema Musculoskeletal : Apperance: Normal Neurologic: Alert, shoe stamper II-XII nml as Tested, No Motor Deficits, Normal Affect, Normal Mood, No Sensory Deficits Cerebellar Function: Normal Reflexes: Normal Skin: Dry, Normal Color, Warm Lymphatic: No Adenopathy Was a procedure done? Was a procedure done?: No Differential Diagnosis (SZ) Seizure: N/A CVA: CVA, DKA, Encephalopathy, Hypoglycemia General Weakness: Other (hypertensive urgency) Headache: Migraine X-Ray, Labs, Meds, VS Vital Signs Date Time Temp Pulse Resp B/P (MAP) Pulse Ox O2 Delivery O2 Flow Rate FiO2 01/15/25 14:21 98.5 84 24 145/82 (103) 91 98.5 01/15/25 14:21 Nasal Cannula* 2 28 01/15/25 13:44 98.2 86 20 152/82 (105) 96 98.2 Lab Test 01/15/25 15:03 01/15/25 14:22 Range/Units Troponin I High Sensitivity Pending 4 </=54 ng/L White Blood Count 9.3 4.4-10.8 10^3/uL Red Blood Count 5.06 4.5-5.90 10^6/uL Hemoglobin 15.2 13.5-17.5 g/dL Hematocrit 45.0 41.0-53.0 % Mean Corpuscular Volume 88.9 80.0-100.0 fL Mean Corpuscular Hemoglobin 30.0 28.0-32.0 pg Mean Corpuscular Hemoglobin Concent 33.7 32.0-36.0 g/dL Red Cell Distribution Width 15.1 H 11.8-14.3 % Platelet Count 129 L 140-450 10^3/uL Mean Platelet Volume 8.6 6.9-10.8 fL Neutrophils (%) (Auto) 80.6 H 37.0-80.0 % Lymphocytes (%) (Auto) 11.5 10.0-50.0 % Monocytes (%) (Auto) 6.1 0.0-12.0 % Eosinophils (%) (Auto) 0.9 0.0-7.0 % Basophils (%) (Auto) 0.9 0.0-2.0 % Neutrophils # (Auto) 7.5 1.6-8.6 10 ^3/uL Lymphocytes # (Auto) 1.1 0.4-5.4 10 ^3/uL Monocytes # (Auto) 0.6 0-1.3 10 ^3/uL Eosinophils # (Auto) 0.1 0-0.8 10 ^3/uL Basophils # (Auto) 0.1 0-0.2 10 ^3/uL Nucleated Red Blood Cells 0.1 % Sodium Level 136 136-145 mmol/L Potassium Level 3.8 3.5-5.1 mmol/L Chloride Level 102 98-107 mmol/L Carbon Dioxide Level 24 20-31 mmol/L Anion Gap 10 5-15 Blood Urea Nitrogen 18 9-23 mg/dL Creatinine 0.74 0.700-1.30 mg/dL Glomerular Filtration Rate Calc 98 >90 mL/min BUN/Creatinine Ratio 24.3 H 10.0-20.0 Serum Glucose 202 H 74-106 mg/dL Calcium Level 8.8 8.7-10.4 mg/dL B-Type Natriuretic Peptide 47.54 0-100 pg/mL [place] [address] Ph: [phone] DIAGNOSTIC IMAGING Diagnostic Imaging Report : [id number] Signed PATIENT: MERYL LEHMAN AACCT: [id number] UNIT: [id number] : 1955 LOC: ER ROOM / BED: / AGE / SEX: 69 / M ADM STATUS: REG ER SERVICE 1354 ORDERING PHYSICIAN: JOE GALVEZ MD PROCEDURE(s): CXRP - CHEST PORTABLE REASON: htn, dizziness ORDER NUMBER(s): [id number], ACCESSION NUMBER(s): [id number] CHEST RADIOGRAPH Indication: htn, dizziness Technique: Single frontal view of the chest was obtained Comparison: XY CHEST PORTABLE on DOS: 01/04/25, XY CHEST PORTABLE on DOS: 06/16/24, XY CHEST PORTABLE on DOS: 11/12/23 FINDINGS: Lines and Tubes: None Lungs: No focal consolidation. Pleura: No effusion. No pneumothorax. Cardiomediastinal contours: Stable cardiomegaly Bones: No acute osseous abnormality. IMPRESSION: 1. Stable cardiomegaly 2. No acute cardiopulmonary disease. 3. No significant change from 01/04/2025 ATED BY: NANCY CHUA Jr., DO DICTATED DATE/TIME: 01/15/251445 SIGNED BY: NANCY CHUA Jr., SIGNED DATE/TIME: 01/15/251445 CC: [place] [id number] Ph: [phone] DIAGNOSTIC IMAGING Diagnostic Imaging Report : [id number] Signed PATIENT: MERYL LEHMAN AACCT: [id number] UNIT: [id number] : 1955 LOC: ER ROOM / BED: / AGE / SEX: 69 / M ADM STATUS: REG ER SERVICE 1354 ORDERING PHYSICIAN: JOE GALVEZ MD PROCEDURE(s): HWOCT - HEAD WITHOUT CONTRAST REASON: htn, dizziness ORDER NUMBER(s): [id number], ACCESSION NUMBER(s): [id number] CT HEAD WITHOUT CONTRAST INDICATION: htn, dizziness EXAM DATE: 01/15/2025 02:23 PM COMPARISON: CT HEAD WITHOUT CONTRAST on DOS: 09/27/24 RADIATION DOSE: CTDIvol: 64 mGy, DLP: 1271 mGy*cm PROCEDURE: CT scans of the head were obtained from the vertex to the skull base. Sagittal and coronal reconstructions were provided. All CT scans at this medical facility are performed using dose modulation techniques as appropriate to a performed exam including the following: Automated exposure control was utilized; adjustment of the MA and/or KV according to patient size; and use of iterative reconstruction technique. FINDINGS: There is sulcal and ventricular prominence. The brainshows normal morphology and rodriguez-white matter differentiation, without intracranial hemorr nia, extra-axial fluid collection, mass effect or acute large vessel infarct. The ventricles are normal in size. The basal cisterns are patent. The skull and visible facial bones are intact. The paranasal sinuses, mastoid air cells and middle ear cavities are well-aerated. The soft tissues of the scalp are unremarkable. IMPRESSION: No acute intracranial abnormality. ATED BY: NILTON AUGUST MD DICTATED DATE/TIME: 01/15/251445 SIGNED BY: NILTON AUGUST MD SIGNED DATE/TIME: 01/15/251445 CC: Time of 1ST Reevaluation: 14:36 Reevaluation 1ST: Unchanged Patient Education/Counseling: Diagnosis, Treatment Family Education/Counseling: No Family Present Departure 1 Departure Time of Disposition: 15:29 (Patient's workup was benign. Patient was offered admission hospital further workup and expert consultation. Patient decided not to go home instead. We will discharge patient home with outpatient follow up) Impression: Primary Impression: Hypertension Qualified Codes: I10 - Essential (primary) hypertension Additional Impression: Dizziness Disposition: 01 HOME / SELF CARE / HOMELESS Condition: Stable Additional Instructions: Your workup today was benign. You can take Tylenol or Motrin as needed for pain. You should continue to take your regular medications. You should follow up with your regular doctor within 1 week. You should stay well rested and well hydrated. If your symptoms worsen or you have any other concerns please return to the emergency room. Discharged With: Self Critical Care Note Critical Care Time?: No Stability Stability form required: No Heart Score Heart Score: Heart Score Response (Comments) Value History N/A 0 EKG N/A 0 Age N/A 0 Risk Factors N/A 0 Troponin N/A 0 Total 0 I personally scribed for JOE GALVEZ MD ([email or web address]) on 01/15/25 at 14:13. Electronically submitted by Heidi Espinoza ([employer]). I personally scribed for JOE GALVEZ MD ([email or web address]) on 01/15/25 at 14:52. Electronically submitted by Heidi Espinoza ([employer]). I personally scribed for JOE GALVEZ MD ([email or web address]) on 01/15/25 at 14:52. Electronically submitted by Heidi Espinoza ([employer]). JOE GALVEZ MD Jan 15, 2025 14:13
[2025-01-15 14:21] VITALS: RESP 24; TEMP 98.5; O2SAT 91
[2025-01-15 14:35] LABS: Basophils # (auto) 0.1 10 ^3/uL (0-0.2); Basophils % (auto) 0.9 % (0.0-2.0); Eosinophils # (auto) 0.1 10 ^3/uL (0-0.8); Eosinophils % (auto) 0.9 % (0.0-7.0); Hemoglobin 15.2 g/dL (13.5-17.5); Lymphocytes # (auto) 1.1 10 ^3/uL (0.4-5.4); Lymphocytes % (auto) 11.5 % (10.0-50.0); Mean Corpuscular Hgb Conc. 33.7 g/dL (32.0-36.0); Mean Corpuscular Volume 88.9 fL (80.0-100.0); Monocytes # (auto) 0.6 10 ^3/uL (0-1.3); Monocytes % (auto) 6.1 % (0.0-12.0); Neutrophils # (auto) 7.5 10 ^3/uL (1.6-8.6); Neutrophils % (auto) 80.6 % (37.0-80.0); Nucleated Red Blood Cells % 0.1 %; Platelet Count (auto) 129 10^3/uL (140-450); Red Blood Cells 5.06 10^6/uL (4.5-5.90); Red Cell Distribution Width 15.1 % (11.8-14.3); White Blood Cell 9.3 10^3/uL (4.4-10.8)
[2025-01-15 14:41] LABS: Chloride 102 mmol/L (98-107); Potassium 3.8 mmol/L (3.5-5.1)
[2025-01-15 14:42] LABS: Anion Gap 10 (5-15); Calcium 8.8 mg/dL (8.7-10.4); Carbon Dioxide 24 mmol/L (20-31)
[2025-01-15 14:45] VITALS: BP 152/80; PULSE 93
[2025-01-15 14:47] LABS: BUN/Creatinine Ratio 24.3 (10.0-20.0); Blood Urea Nitrogen 18 mg/dL (9-23); Glucose 202 mg/dL (74-106); Sodium 136 mmol/L (136-145)
--- NOTE | 2025-01-15 14:48 | DVH ---
CT HEAD WITHOUT CONTRAST INDICATION: htn, dizziness EXAM DATE: 01/15/2025 02:23 PM COMPARISON: CT HEAD WITHOUT CONTRAST on DOS: 09/27/24 RADIATION DOSE: CTDIvol: 64 mGy, DLP: 1271 mGy*cm PROCEDURE: CT scans of the head were obtained from the vertex to the skull base. Sagittal and coronal reconstructions were provided. All CT scans at this medical facility are performed using dose modulation techniques as appropriate t o a performed exam including the following: Automated exposure control was utilized; adjustment of th e MA and/or KV according to patient size; and use of iterative reconstruction technique. FINDINGS: There is sulcal and ventricular prominence. The brainshows normal morphology and rodriguez-whi te matter differentiation, without intracranial hemorrhage, extra-axial fluid collection, mass effect or acute large vessel infarct. The ventricles are normal in size. The basal cisterns are patent. The skull and visible facial bones are intact. The paranasal sinuses, mastoid air cells and middle ear c avities are well-aerated. The soft tissues of the scalp are unremarkable. IMPRESSION: No acute intracranial abnormality.
--- NOTE | 2025-01-15 14:49 | DVH ---
CHEST RADIOGRAPH Indication: htn, dizziness Technique: Single frontal view of the chest was obtained Comparison: XY CHEST PORTABLE on DOS: 01/04/25, XY CHEST PORTABLE on DOS: 06/16/24, XY CHEST PORTABLE on DOS: 11/12/23 FINDINGS: Lines and Tubes: None Lungs: No focal consolidation. Pleura: No effusion. No pneumothorax. Cardiomediastinal contours: Stable cardiomegaly Bones: No acute osseous abnormality. IMPRESSION: 1. Stable cardiomegaly 2. No acute cardiopulmonary disease. 3. No significant change from 01/04/2025
== END 2025-01-15 16:54 | disposition home or self-care (01) ==
LOC: EDBD 13:44 → ER 13:44
DX: I11.0 Hypertensive heart disease with heart failure (principal); I50.9 Heart failure, unspecified; R42 Dizziness and giddiness; E78.5 Hyperlipidemia, unspecified; E11.9 Type 2 diabetes mellitus without complications; J44.9 Chronic obstructive pulmonary disease, unspecified; M19.90 Unspecified osteoarthritis, unspecified site; Z90.49 Acquired absence of other specified parts of digestive tract; Z90.89 Acquired absence of other organs
CPT/HCPCS: 36415; 70450; 71045; 80048; 82947; 83880; 84484; 85025

== ENCOUNTER 2025-01-18 10:05 | Emergency (ER) | payer OTHER ==
[~2025-01-18] VITALS: Ht 175.3 cm; Wt 118.0 kg
--- NOTE | 2025-01-18 10:49 | ED.PDOC ---
History of Present Illness HPI Comments 69M BIBA w/ no prior Hx associated to the c/c of gen weak. EMS report that the pt has been having gen week for 2 days associated stress due from a probable eviction, High BP/Lipids. EMS state that the pt can walk and that the pt was stating that he needs to be admitted in to the ER so that he can stay at a [facility] facility. Pt's BP on scene was 179/121. PMHx of Anxiety, CHF, Cancer, COPD, DM, Arthritis, High Lipids and HTN. SHx of Cholecystectomy, Tonsillectomy, Appendectomy abd Hernia Repair. Denies chills, fever, N/V/D, SOB, CP or no other associated symptoms, modifiers, recent injuries or sick contacts at this time. Chief Complaint: High Blood Pressure Time Seen by MD: 10:15 Primary Care Provider: Reviewed Notes: Nurses Notes, Hotel Engineer Notes, Medications, Allergies Allergies: Coded Allergies: Iodine (Verified Allergy, Severe, 08/17/23) Home Meds Reported Medications Meclizine Hcl (Meclizine Hcl) 25 Mg Tab, 25 MG PO DAILYPRN for 30 Days, MG 06/14/24 Atorvastatin Calcium (ATORVASTATIN CALCIUM) 40 Mg Tab, 40 MG PO DAILY, TAB 06/10/24 Sitagliptin Phosphate (Januvia) 100 Mg Tab, 100 MG PO DAILY, TAB 06/10/24 Omeprazole (Omeprazole Dr) 40 Mg Cap, 40 MG PO, CAP 06/10/24 Ibuprofen Micronized (Ibuprofen) 800 Mg Tab, 800 MG PO, TAB 06/10/24 Trazodone Hcl (Trazodone Hcl) 100 Mg Tab, 100 MG PO DAILY for INSOMNIA, MG 08/17/23 Metformin Hydrochloride (Metformin Hcl) 500 Mg Tab, 1000 MG PO BID for DIABETES for 30 Days, MG 08/17/23 Furosemide (Furosemide) 20 Mg Tab, 20 MG PO BIDD for EDEMA, MG 08/17/23 Glipizide (Glipizide) 5 Mg Tab, 5 MG PO BID for DIABETES, MG 08/17/23 Insulin Glargine (Lantus Solostar) 100 Unit/Ml Inj, 35 UNIT SC DAILY for DIABETES, INJ 08/17/23 Hydrocodone-Acetaminophen (Hydrocodone Bitartrate/AC 5-325 mg) 1 Tab Tab, 1 TAB PO Q12HP PRN for PAIN SCALE 1 THRU 6, TAB 08/17/23 Lisinopril (Lisinopril) 40 Mg Tab, 40 MG PO DAILY for HTN for 30 Days, MG 08/17/23 Information Source: Patient, Emergency Med Personnel Mode of Arrival: EMS Severity: Moderate Timing: Days Duration: Since onset, Days Prehospital treatment: None Past Medical History PAST MEDICAL HISTORY: Anxiety, Arthritis, Cancer, CHF, COPD, DM, High Lipids, HTN Surgical History: Appendectomy, Cholecystectomy, Hernia Repair, Tonsillectomy Family History Family History: Reviewed,noncontributory to illness, Unknown Social History Smoker: Non-Smoker Alcohol: Denies ETOH Use Drugs: Denies Drug Use Lives In: Home Constitutional: reports: weakness; denies: chills, diaphoresis, fatigue, fever, malaise, sweats, others EENTM: denies: blurred vision, double vision, ear bleeding, ear discharge, ear drainage, ear pain, ear ringing, eye pain, eye redness, hearing loss, mouth pain, mouth swelling, nasal discharge, nose bleeding, nose congestion, nose pain, photophobia, tearing, throat pain, throat swelling, voice changes, others Respiratory: denies: cough, hemoptysis, orthopnea, SOB at rest, shortness of breath, SOB with excertion, stridor, wheezing, others Cardiovascular: denies: chest pain, dizzy spells, diaphoresis, Dyspnea on exertion, edema, irregular heart beat, left arm pain, lightheadedness, palpitations, PND, syncope, others Gastrointestinal: denies: abdomen distended, abdominal pain, blood streaked bowels, constipated, diarrhea, dysphagia, difficulty swallowing, hematemesis, melena, nausea, poor appetite, poor fluid intake, rectal bleeding, rectal pain, vomiting, others Genitourinary: denies: burning, dysuria, flank pain, frequency, hematuria, incontinence, penile discharge, penile sore, pain, testicle pain, testicle swelling, urgency, others Neurological: denies: dizziness, fainting, headache, left sided numbness, left sided weakness, numbness, paresthesia, pre-existing deficit, right sided numbness, right sided weakness, seizure, speech problems, tingling, tremors, weakness, others Musculoskeletal: denies: back pain, gout, joint pain, joint swelling, muscle pain, muscle stiffness, neck pain, others Integumetry: denies: bruises, change in color, change in hair/nails, dryness, laceration, lesions, lumps, rash, wounds, others Allergic/Immunocompromised: denies: Difficulty Healing, Frequent Infections, Hives, Itching, others Hematologic/Lymphatic: denies: anemia, blood clots, easy bleeding, easy bruising, swollen glands, others Endocrine: denies: excessive hunger, excessive sweating, excessive thirst, excessive urination, flushing, intolerance to cold, intolerance to heat, unexplained weight gain, unexplained weight loss, others Psychiatric: denies: anxiety, bipolar disorder, depression, hopeless, panic disorder, schizophrenia, sleepless, suicidal, others All Other Systems: Reviewed and Negative Physical Exam General Appearance: Moderate Distress, Normal HEENT: Normal ENT Inspection, Pharynx Normal, TMs Normal Neck: Full Range of Motion, Non-Tender, Normal, Normal Inspection Respiratory: Chest Non-Tender, Lungs Clear, No Accessory Muscle Use, No Respiratory Distress, Normal Breath Sounds Cardiovascular: No Edema, No JVD, No Murmur, No Gallop, Normal Peripheral Pulses, Regular Rate/Rhythm Breast Exam: Deferred Gastrointestinal: No Organomegaly, Non Tender, No Pulsatile Mass, Normal Bowel Sounds, Soft Genitalia: Deferred Pelvic: Deferred Rectal: Deferred Extremities: No calf tenderness, Normal capillary refill, Normal inspection, Normal range of motion, Non-tender, No pedal edema Musculoskeletal : Apperance: Normal Neurologic: Alert, roll tube setter II-XII nml as Tested, No Motor Deficits, Normal Affect, Normal Mood, No Sensory Deficits Cerebellar Function: Normal Reflexes: Normal Skin: Dry, Normal Color, Warm Peripheral Pulses: 3+ Radial (R), 3+ Radial (L) Lymphatic: No Adenopathy Was a procedure done? Was a procedure done?: No Differential Dx Considerations may include: Hypertension Electrolyte imbalance X-Ray, Labs, Meds, VS Vital Signs Date Time Temp Pulse Resp B/P (MAP) Pulse Ox O2 Delivery O2 Flow Rate FiO2 01/18/25 10:19 98.0 81 19 179/121 (140) 98 98.0 01/18/25 10:05 81 Lab Test 01/18/25 10:36 Range/Units White Blood Count Pending Red Blood Count Pending Hemoglobin Pending Hematocrit Pending Mean Corpuscular Volume Pending Mean Corpuscular Hemoglobin Pending Mean Corpuscular Hemoglobin Concent Pending Red Cell Distribution Width Pending Platelet Count Pending Mean Platelet Volume Pending Neutrophils (%) (Auto) Pending Lymphocytes (%) (Auto) Pending Monocytes (%) (Auto) Pending Basophils (%) (Auto) Pending Neutrophils # (Auto) Pending Lymphocytes # (Auto) Pending Monocytes # (Auto) Pending Sodium Level Pending Potassium Level Pending Chloride Level Pending Carbon Dioxide Level Pending Anion Gap Pending Blood Urea Nitrogen Pending Creatinine Pending Glomerular Filtration Rate Calc Pending BUN/Creatinine Ratio Pending Serum Glucose Pending Calcium Level Pending Patient alert. Complaining of having high blood pressure. He is not happy in the place he is residing. Vitals stable. Answering questions. Was given clonidine. Abdomen is soft nontender. Denies headache. Moving all extremities. Reviewed his history. Explained to the patient. Continue monitoring. EKG reviewed does not show any acute changes. Time of 1ST Reevaluation: 10:59 Reevaluation 1ST: Unchanged Patient Education/Counseling: Diagnosis, Treatment, Prognosis Family Education/Counseling: No Family Present Departure 1 Departure Time of Disposition: 11:00 Impression: Primary Impression: Hypertensive emergency Disposition: ADMITTED INPATIENT Admit to: Med Surg Condition: Guarded Critical Care Note Critical Care Time?: No Stability Stability form required: No Heart Score Heart Score: Heart Score Response (Comments) Value History Slightly Suspicious 0 EKG Normal 0 Age >65 2 Risk Factors >3 or Hx ASHD 2 Troponin Normal limit 0 Total 4 I personally scribed for JOIE ROE MD ([email or web address]) on 01/18/25 at 10:49. Electronically submitted by Tyshawn Kumar ([email or web address]). JOIE ROE MD Jan 18, 2025 10:49
[2025-01-18 11:04] LABS: Basophils # (auto) 0 10 ^3/uL (0-0.2); Basophils % (auto) 0.4 % (0.0-2.0); Eosinophils # (auto) 0 10 ^3/uL (0-0.8); Eosinophils % (auto) 0.5 % (0.0-7.0); Hemoglobin 15.5 g/dL (13.5-17.5); Lymphocytes # (auto) 1.3 10 ^3/uL (0.4-5.4); Lymphocytes % (auto) 12.8 % (10.0-50.0); Mean Corpuscular Hemoglobin 30.6 pg (28.0-32.0); Mean Corpuscular Hgb Conc. 34.5 g/dL (32.0-36.0); Mean Corpuscular Volume 88.9 fL (80.0-100.0); Monocytes # (auto) 0.6 10 ^3/uL (0-1.3); Monocytes % (auto) 6.4 % (0.0-12.0); Neutrophils % (auto) 79.9 % (37.0-80.0); Platelet Count (auto) 131 10^3/uL (140-450); Red Blood Cells 5.07 10^6/uL (4.5-5.90); Red Cell Distribution Width 15.4 % (11.8-14.3)
[2025-01-18 11:13] LABS: Chloride 100 mmol/L (98-107)
[2025-01-18 11:14] LABS: Anion Gap 10 (5-15); Calcium 9.3 mg/dL (8.7-10.4); Carbon Dioxide 23 mmol/L (20-31)
[2025-01-18 11:16] LABS: Sodium 133 mmol/L (136-145)
[2025-01-18 11:19] LABS: BUN/Creatinine Ratio 17.9 (10.0-20.0); Blood Urea Nitrogen 12 mg/dL (9-23)
[2025-01-18 11:20] LABS: Glucose 188 mg/dL (74-106)
[2025-01-18] MEDS: cloNIDine HCL 0.1 MG TAB PO ONE (11:47)
[2025-01-18 11:57] VITALS: BP 159/85; PULSE 78; RESP 16; TEMP 98; O2SAT 96
[2025-01-18] MEDS ORDERED: ASPirin 325 MG TAB PO ONE (14:45)
--- NOTE | 2025-01-18 19:15 | ECG ---
[facility] Test Date: 2025-01-18 Test Time: 10:03:01 Pat Name: MERYL LEHMAN Department: ED Room: Gender: M Assistant Finance Manager: ERNIE : 1955 Requested By: JOIE ROE Order Number: [id number] Reading MD: Reyes Duarte Measurements Intervals [place] Rate: 81 P: 28 NE: 169 QRS: 260 QRSD: 98 T: 18 QT: 394 QTc: 458 Interpretive Statements Sinus rhythm Atrial premature complex Left anterior fascicular block Consider right ventricular hypertrophy Electronically Signed On 01-19-2025 20:54:19 PDT by Reyes Duarte Please click the below link to view image of tracing.
== END 2025-01-18 17:31 | disposition home or self-care (01) ==
LOC: EDBD 10:05 → ER 10:05
DX: I16.1 Hypertensive emergency (principal); I11.0 Hypertensive heart disease with heart failure; I50.9 Heart failure, unspecified; E11.9 Type 2 diabetes mellitus without complications; F41.9 Anxiety disorder, unspecified; I44.4 Left anterior fascicular block; J44.9 Chronic obstructive pulmonary disease, unspecified; M19.90 Unspecified osteoarthritis, unspecified site; Z79.84 Long term (current) use of oral hypoglycemic drugs; Z79.899 Other long term (current) drug therapy; Z90.49 Acquired absence of other specified parts of digestive tract; Z90.89 Acquired absence of other organs; Z91.041 Radiographic dye allergy status; Z88.8 Allergy status to other drugs, medicaments and biological substances; Z98.890 Other specified postprocedural states
CPT/HCPCS: 36415; 80048; 85025; 93005

== ENCOUNTER 2025-01-22 18:21 | Inpatient (IN) | payer OTHER ==
[~2025-01-22] VITALS: Ht 170.2 cm; Wt 118.0 kg
--- NOTE | 2025-01-22 19:24 | ED.PDOC ---
History of Present Illness HPI Comments 69-year-old male presents with a chief complaint of high blood pressure today, unknown reading at home. Patient states, "I'm under a lot of stress, my sister kicked me out". Patient reports 5/10 substernal chest pain that feels like minor heart attack . Patient is reporting feeling groggy. He states he was in [employer] and became suddenly very dizzy, lightheaded and almost passed out. He states his brother had to catch him. Patient states he is chronically dizzy however not this severe. Patient reports neck stiffness. He denies headache. Chief Complaint: High Blood Pressure Time Seen by MD: 19:04 Primary Care Provider: Reviewed Notes: Medications, Allergies Allergies: Coded Allergies: Iodine (Verified Allergy, Severe, 08/17/23) Home Meds Reported Medications Meclizine Hcl (Meclizine Hcl) 25 Mg Tab, 25 MG PO DAILYPRN for 30 Days, MG 06/14/24 Atorvastatin Calcium (ATORVASTATIN CALCIUM) 40 Mg Tab, 40 MG PO DAILY, TAB 06/10/24 Sitagliptin Phosphate (Januvia) 100 Mg Tab, 100 MG PO DAILY, TAB 06/10/24 Omeprazole (Omeprazole Dr) 40 Mg Cap, 40 MG PO, CAP 06/10/24 Ibuprofen Micronized (Ibuprofen) 800 Mg Tab, 800 MG PO, TAB 06/10/24 Trazodone Hcl (Trazodone Hcl) 100 Mg Tab, 100 MG PO DAILY for INSOMNIA, MG 08/17/23 Metformin Hydrochloride (Metformin Hcl) 500 Mg Tab, 1000 MG PO BID for DIABETES for 30 Days, MG 08/17/23 Furosemide (Furosemide) 20 Mg Tab, 20 MG PO BIDD for EDEMA, MG 08/17/23 Glipizide (Glipizide) 5 Mg Tab, 5 MG PO BID for DIABETES, MG 08/17/23 Insulin Glargine (Lantus Solostar) 100 Unit/Ml Inj, 35 UNIT SC DAILY for DIABETES, INJ 08/17/23 Hydrocodone-Acetaminophen (Hydrocodone Bitartrate/AC 5-325 mg) 1 Tab Tab, 1 TAB PO Q12HP PRN for PAIN SCALE 1 THRU 6, TAB 08/17/23 Lisinopril (Lisinopril) 40 Mg Tab, 40 MG PO DAILY for HTN for 30 Days, MG 08/17/23 Information Source: Patient Mode of Arrival: Ambulatory Severity: Moderate Timing: Hours Duration: Since onset Prehospital treatment: None Vital Signs Vital Signs Date Time Temp Pulse Resp B/P (MAP) Pulse Ox O2 Delivery O2 Flow Rate FiO2 01/22/25 20:30 98.1 100 15 148/74 (98) 97 98.1 Physical Exam General: Awake, alert and oriented. No acute distress. Skin: Skin in warm, dry and intact. Appropriate color for ethnicity. HEENT: The head is normocephalic and atraumatic. Conjunctivae are clear without exudates or hemorrhage. Sclera is non-icteric. EOM are intact. No signs of nystagmus. Eyelids are normal in appearance without swelling or lesions. Oral mucosa is pink and moist Neck: The neck is supple with normal range of motion. No JVD. Cardiac: Heart rate and rhythm are normal. No murmurs, gallops, or rubs are auscultated. Respiratory: No signs of respiratory distress. Lung sounds are clear in all lobes bilaterally without rales, rhonchi, or wheezes. Abdominal: Abdomen is soft, non-tender without distention. Bowel sounds are present and normoactive in all four quadrants. Extremities: Upper and lower extremities are atraumatic in appearance without deformity or edema. Neurological: The patient is awake, alert and oriented to person, place, and time with normal speech. Speech is clear. There is no facial asymmetry. Bilateral upper and lower extremity strength intact. Psychiatric: Appropriate mood and affect. Good judgement and insight. Review of Systems: REVIEW OF SYSTEMS: No fever, no chills, or fatigue HEENT: No sore throat, no earache, no congestion, no neck pain. Cardiac: Positive chest pain. No palpitations. Lungs: No shortness of breath, no cough. GI: No nausea, no vomiting, no diarrhea, no constipation, no abdominal pain : No dysuria, frequency, or urgency. No hematuria. Musculoskeletal: No joint pain , no joint swelling, no extremity edema. Skin: No rash, no itching. Neuro: No headache, positive dizziness, no weakness, positive presyncope, positive fogginess Past Medical History PAST MEDICAL HISTORY: Anxiety, Arthritis, Cancer, CHF, COPD, DM, High Lipids, HTN Surgical History: Appendectomy, Cholecystectomy, Hernia Repair, Tonsillectomy Family History Family History: Reviewed,noncontributory to illness, Unknown Social History Smoker: Non-Smoker Alcohol: Denies ETOH Use Drugs: Denies Drug Use Lives In: Home Was a procedure done? Was a procedure done?: No EKG EKG : Comments No STEMI Differential Dx Considerations may include: Differential diagnoses considered include acute ischemic coronary syndrome, aortic dissection, cardiac tamponade, mediastinitis, pulmonary embolus, pneumothorax, tension pneumothorax, esophageal rupture, coronary artery vasospasm, myocarditis, pericarditis, pneumonia, pulmonary edema, esophageal tear, pancreatitis, aortic stenosis, dilated cardiomyopathy, hypertrophic cardiomyopathy, mitral valve prolapse, malignancy, pleuritis, pneumomediastinum, primary pulmonary hypertension, cholecystitis, esophageal spasm, esophagus, gastritis, GERD, peptic ulcer disease, costochondritis, fibromyalgia, rib fracture, herpes zoster, radicular syndromes, thoracic outlet syndrome, somatization. X-Ray, Labs, Meds, VS Vital Signs Date Time Temp Pulse Resp B/P (MAP) Pulse Ox O2 Delivery O2 Flow Rate FiO2 01/22/25 20:30 98.1 100 15 148/74 (98) 97 98.1 01/22/25 19:19 97 01/22/25 18:41 99.5 102 15 157/86 (109) 96 99.5 Lab Test 01/22/25 21:14 01/22/25 19:10 Range/Units Troponin I High Sensitivity 6 5 </=54 ng/L White Blood Count 11.9 H 4.4-10.8 10^3/uL Red Blood Count 5.26 4.5-5.90 10^6/uL Hemoglobin 16.0 13.5-17.5 g/dL Hematocrit 47.3 41.0-53.0 % Mean Corpuscular Volume 89.9 80.0-100.0 fL Mean Corpuscular Hemoglobin 30.4 28.0-32.0 pg Mean Corpuscular Hemoglobin Concent 33.8 32.0-36.0 g/dL Red Cell Distribution Width 15.4 H 11.8-14.3 % Platelet Count 141 140-450 10^3/uL Mean Platelet Volume 8.4 6.9-10.8 fL Neutrophils (%) (Auto) 76.0 37.0-80.0 % Lymphocytes (%) (Auto) 16.0 10.0-50.0 % Monocytes (%) (Auto) 6.9 0.0-12.0 % Eosinophils (%) (Auto) 0.4 0.0-7.0 % Basophils (%) (Auto) 0.7 0.0-2.0 % Neutrophils # (Auto) 9.0 H 1.6-8.6 10 ^3/uL Lymphocytes # (Auto) 1.9 0.4-5.4 10 ^3/uL Monocytes # (Auto) 0.8 0-1.3 10 ^3/uL Eosinophils # (Auto) 0.1 0-0.8 10 ^3/uL Basophils # (Auto) 0.1 0-0.2 10 ^3/uL Nucleated Red Blood Cells 0.1 % Sodium Level 135 L 136-145 mmol/L Potassium Level 3.3 L 3.5-5.1 mmol/L Chloride Level 103 98-107 mmol/L Carbon Dioxide Level 22 20-31 mmol/L Anion Gap 10 5-15 Blood Urea Nitrogen 10 9-23 mg/dL Creatinine 0.68 L 0.700-1.30 mg/dL Glomerular Filtration Rate Calc 101 >90 mL/min BUN/Creatinine Ratio 14.7 10.0-20.0 Serum Glucose 120 H 74-106 mg/dL Calcium Level 9.5 8.7-10.4 mg/dL B-Type Natriuretic Peptide 52.63 0-100 pg/mL Current Medications Medications (Trade) Dose Ordered Sig/Phyllis Route Start Time Stop Time Status Last Admin Potassium Chloride (Klor-Con Tablet) 40 meq ONCE ONCE PO 01/22/25 20:45 01/22/25 20:46 DC 01/22/25 20:55 Images Reviewed?: Images reviewed and evaluated by me (Independent interpretation of chest x-ray: No acute disease) Time of 1ST Reevaluation: 19:40 Reevaluation 1ST: Unchanged Patient Education/Counseling: Other (Need for admission) Family Education/Counseling: No Family Present Departure 1 Departure Time of Disposition: 20:32 Impression: Primary Impression: Hypertension Additional Impressions: Pre-syncope Hyponatremia Hypokalemia Leukocytosis Chest pain Disposition: ADMITTED INPATIENT Condition: Stable Comments 69-year-old male who presents to the emergency department with dizziness and presyncopal symptoms. Chest pain which he was describing as mild heart attack. History of hypertension. Initial EKG and troponin negative. Patient admitted for further treatment, evaluation and monitoring. Discussed with Fadi. Recommendation is repeat troponin, he will see patient in the emergency depart (@2101) I reviewed the following notes from the pt's past medical encounters: N/A The following tests were ordered, and results were reviewed by me: (See diagnostic results section) The following test were independently interpreted by me: EKG, chest x-ray Additional information was gathered from interviewing the following independent historians: (N/A) I reviewed and agreed with the following test results read by other providers: Chest x-ray I discussed treatments and results with medical personnel and patient Critical Care Note Critical Care Time?: No Stability Stability form required: No Heart Score Heart Score: Heart Score Response (Comments) Value History N/A 0 EKG N/A 0 Age N/A 0 Risk Factors N/A 0 Troponin N/A 0 Total 0 I personally scribed for ROBIN ELDER MD ([email or web address]) on 01/22/25 at 19:24. Electronically submitted by Timothy Luther ([email or web address]). I personally scribed for ROBIN ELDER MD ([email or web address]) on 01/22/25 at 19:24. Electronically submitted by Timothy Luther ([email or web address]). ROBIN ELDER MD Jan 22, 2025 19:24
[2025-01-22 19:31] LABS: Basophils # (auto) 0.1 10 ^3/uL (0-0.2); Basophils % (auto) 0.7 % (0.0-2.0); Eosinophils # (auto) 0.1 10 ^3/uL (0-0.8); Eosinophils % (auto) 0.4 % (0.0-7.0); Hematocrit 47.3 % (41.0-53.0); Lymphocytes # (auto) 1.9 10 ^3/uL (0.4-5.4); Mean Corpuscular Hemoglobin 30.4 pg (28.0-32.0); Mean Corpuscular Hgb Conc. 33.8 g/dL (32.0-36.0); Mean Corpuscular Volume 89.9 fL (80.0-100.0); Monocytes # (auto) 0.8 10 ^3/uL (0-1.3); Monocytes % (auto) 6.9 % (0.0-12.0); Nucleated Red Blood Cells % 0.1 %; Platelet Count (auto) 141 10^3/uL (140-450); Red Blood Cells 5.26 10^6/uL (4.5-5.90); Red Cell Distribution Width 15.4 % (11.8-14.3); White Blood Cell 11.9 10^3/uL (4.4-10.8)
[2025-01-22 19:37] LABS: Anion Gap 10 (5-15); Carbon Dioxide 22 mmol/L (20-31); Chloride 103 mmol/L (98-107)
--- NOTE | 2025-01-22 19:37 | ECG ---
[facility] Test Date: 2025-01-22 Test Time: 19:19:14 Pat Name: MERYL LEHMAN Department: ER Room: 0271T Gender: M Loan Specialist: KONSTANTIN : 1955 Requested By: ROBIN ELDER Order Number: [id number] Reading MD: Reyes Duarte Measurements Intervals [place] Rate: 97 P: 32 [place]: 169 QRS: 259 QRSD: 94 T: 38 QT: 361 QTc: 459 Interpretive Statements Sinus tachycardia Multiple premature complexes, vent & supraven Consider right ventricular hypertrophy Inferior infarct, old Electronically Signed On 01-25-2025 20:56:39 PDT by Reyes Duarte Please click the below link to view image of tracing.
[2025-01-22 19:38] LABS: Calcium 9.5 mg/dL (8.7-10.4)
[2025-01-22 19:43] LABS: BUN/Creatinine Ratio 14.7 (10.0-20.0); Blood Urea Nitrogen 10 mg/dL (9-23)
[2025-01-22 19:45] LABS: Glucose 120 mg/dL (74-106); Potassium 3.3 mmol/L (3.5-5.1); Sodium 135 mmol/L (136-145)
--- NOTE | 2025-01-22 20:23 | DVH ---
CHEST RADIOGRAPH Indication: Chest pain Technique: Single frontal view of the chest was obtained COMPARISON: XY CHEST PORTABLE on DOS: 01/15/25 FINDINGS: Lines and Tubes: None Lungs: Lung volumes are low with crowding of the bronchovascular markings. No evidence of pulmonary i nfiltrates or edema. Pleura: No effusion. No pneumothorax. Cardiomediastinal contours: Within normal limits. IMPRESSION: No acute disease. No significant change compared to the prior chest x-ray from 01/15/25.
[2025-01-22] MEDS: POTASSIUM CHL 20 Meq TABLET PO ONE (20:55)
[2025-01-22] MEDS ORDERED: MORPHINE SULFATE INJ 2 MG/ml SYRG IV PRN (22:15)
[2025-01-22] MEDS ORDERED: MELATONIN 5 MG TAB PO PRN (22:15)
[2025-01-22] MEDS ORDERED: ONDANSETRON HCL 4 MG/2 ML VIAL IV PRN (22:15)
[2025-01-22] MEDS ORDERED: DEXTROSE (50%) 50ML SYRG IV PRN (22:15)
[2025-01-22] MEDS ORDERED: hydrALAZINE HCL 20 MG/ML VL IV PRN (22:15)
[2025-01-22] MEDS: FUROSEMIDE 20 MG TAB PO ONE (23:37)
[2025-01-23] VITALS (7 sets, daily range): BP systolic 108–153; BP diastolic 71–88; PULSE 71–85; RESP 16–20; TEMP 97.4–98; O2SAT 91–95
--- NOTE | 2025-01-23 02:39 | DVHHP2 ---
WILFREDO LANTIGUA PBX INSPECTOR 01/23/25 0239: History of Present Illness Reason for Visit: High blood pressure,Near syncope History of Present Illness 69-year-old male with past medical history DM, hypertension presents with complaints Of Subjective high blood pressure And two near syncopal episodes while at [facility]. Patient does not know how high his blood pressure is because he has not checked his blood pressure. Also endorses he was having chest pain when he arrived in the emergency department however that has improved. States that while he was walking at [email or web address] he got dizzy and fell down. Denies LOC. Patient endorses he has been under lot of stress because his sister kicked him out of her home and he is now homeless. States he does not know if he is being followed by Cardiology. Denies recent visits to PCP. States he has been unable to get his medications. At this time patient denies fevers, chills, headaches, shortness of breath, palpitations, nausea, vomiting. Cardiovascular: HTN Endocrine: Diabetes Smoke: No ALCOHOL: none Drugs: None Lives: Homeless Review of Systems Constitutional: Yes: Weakness; No: Fever, Chills, Sweats, Malaise, Other Eyes: No: Pain, Vision change, Conjunctivae inflammation, Eyelid inflammation, Other, Redness ENT: No: Ear pain, Ear discharge, Nose pain, Nose discharge, Nose congestion, Mouth pain, Mouth swelling, Throat pain, Throat swelling, Other Respiratory: No: Cough, Dry, Shortness of breath, SOB with excertion, Wheezing, Hemoptysis, Pleuritic Pain, Sputum, Wheezing, Other Cardiovascular: Chest Pain, Edema, Lt Headedness; No: Palpitations, Orthopnea, Paroxysmal Noc. Dyspnea, Other Gastrointestinal: No: Nausea, Vomiting, Abdominal Pain, Diarrhea, Constipation, Melena, Hematochezia, Other Genitourinary: No Dysuria, No Frequency, No Incontinence, No Hematuria, No Retention, No Other Musculoskeletal: No: other, neck pain, shoulder pain, arm pain, back pain, hand pain, leg pain, foot pain Skin: No: Rash, Lesions, Jaundice, Bruising, Other Neurological: No: Weakness, Numbness, Incoordination, Change in speech, Confusion, Seizures, Other Allergies: Coded Allergies: Iodine (Verified Allergy, Severe, 08/17/23) Medications Current Medications Medications Dose Ordered Sig/Phyllis Route Start Time Stop Time Status Last Admin Dose Admin Acetaminophen 650 mg Q6HP PRN PO 01/22/25 22:15 Acetaminophen/ Hydrocodone Bitart 1 tab Q8HPRN PRN PO 01/22/25 22:15 Ondansetron HCl 4 mg Q4HP PRN IV 01/22/25 22:15 Enoxaparin Sodium 40 mg DAILY SC 01/23/25 10:00 Nitroglycerin 0.4 mg Q5MINP PRN SL 01/22/25 22:15 Morphine Sulfate 2 mg Q30M PRN IV 01/22/25 22:15 Diagnostic Test (Pha) 1 strip ACHS 01/23/25 07:00 Insulin Human Regular HS SC 01/23/25 22:00 Insulin Human Regular AC SC 01/23/25 07:00 Dextrose 50 ml UD PRN IV 01/22/25 22:15 Atorvastatin Calcium 40 mg DAILY PO 01/23/25 10:00 Lisinopril 40 mg DAILY PO 01/23/25 10:00 Melatonin 10 mg QHSP PRN PO 01/22/25 22:15 Hydralazine HCl 10 mg Q4HPRN PRN IV 01/22/25 22:15 Exam Vital Signs Vital Signs Date Time Temp Pulse Resp B/P (MAP) Pulse Ox O2 Delivery O2 Flow Rate FiO2 01/22/25 23:40 98.4 91 18 148/91 (110) 93 98.4 General Appearance: Alert, Oriented X3, mild distress HEENT: Atraumatic, PERRLA, EOMI Respiratory: Clear to auscultation, Normal air movement Cardiovascular: Regular rate, Normal S1, Normal S2 Abdominal: Normal bowel sounds, Soft, No tenderness Extremities: Other (Trace BLE edema with discoloration) Skin: No rashes, No breakdown Neuro: Normal speech, Strength at 5/5 X4 ext Psych/Mental Status: Mental status NL, Other (Anxious behavior) Labs/Xrays Labs Test 01/22/25 22:20 01/22/25 19:10 Range/Units Troponin I High Sensitivity 6 </=54 ng/L White Blood Count 11.9 H 4.4-10.8 10^3/uL Red Blood Count 5.26 4.5-5.90 10^6/uL Hemoglobin 16.0 13.5-17.5 g/dL Hematocrit 47.3 41.0-53.0 % Mean Corpuscular Volume 89.9 80.0-100.0 fL Mean Corpuscular Hemoglobin 30.4 28.0-32.0 pg Mean Corpuscular Hemoglobin Concent 33.8 32.0-36.0 g/dL Red Cell Distribution Width 15.4 H 11.8-14.3 % Platelet Count 141 140-450 10^3/uL Mean Platelet Volume 8.4 6.9-10.8 fL Neutrophils (%) (Auto) 76.0 37.0-80.0 % Lymphocytes (%) (Auto) 16.0 10.0-50.0 % Monocytes (%) (Auto) 6.9 0.0-12.0 % Eosinophils (%) (Auto) 0.4 0.0-7.0 % Basophils (%) (Auto) 0.7 0.0-2.0 % Neutrophils # (Auto) 9.0 H 1.6-8.6 10 ^3/uL Lymphocytes # (Auto) 1.9 0.4-5.4 10 ^3/uL Monocytes # (Auto) 0.8 0-1.3 10 ^3/uL Eosinophils # (Auto) 0.1 0-0.8 10 ^3/uL Basophils # (Auto) 0.1 0-0.2 10 ^3/uL Nucleated Red Blood Cells 0.1 % Sodium Level 135 L 136-145 mmol/L Potassium Level 3.3 L 3.5-5.1 mmol/L Chloride Level 103 98-107 mmol/L Carbon Dioxide Level 22 20-31 mmol/L Anion Gap 10 5-15 Blood Urea Nitrogen 10 9-23 mg/dL Creatinine 0.68 L 0.700-1.30 mg/dL Glomerular Filtration Rate Calc 101 >90 mL/min BUN/Creatinine Ratio 14.7 10.0-20.0 Serum Glucose 120 H 74-106 mg/dL Calcium Level 9.5 8.7-10.4 mg/dL B-Type Natriuretic Peptide 52.63 0-100 pg/mL Assessment/Plan Assessment/Plan Near syncope Chest pain Hypertension DM Homelessness Plan Admit to telemetry Cardiology consult. Echocardiogram. Continue home medication. As needed antihypertensive for optimal BP management. Blood glucose checked with ACHS regular insulin sliding scale coverage Physical therapy evaluation Social service consult GI ppx pepcid / DVT ppx lovenox Plan discussed with: Patient My Orders Orders - WILFREDO LANTIGUA NP Procedure Category Date Status Time Admit ADMIT 01/22/25 Transmitted 22:11 Code Status CODE 01/22/25 Transmitted 22:11 Vital Signs TONNY 01/22/25 In Process 22:11 Review Orders With TONNY 01/22/25 In Process Adm. 22:11 Encourage Activity As TONNY 01/22/25 In Process Tolerate 22:11 Consistent DIET 01/23/25 Transmitted Carb(Ccho)Diabetes Breakfast Oxygen By Face Mask RT 01/22/25 Transmitted 22:11 Acetaminophen Tablet PHA 01/22/25 In Process (Tylenol Tablet) 22:15 Notify Of Changes TONNY 01/22/25 In Process From Base 22:11 Advance Directive TONNY 01/22/25 In Process 22:11 Echo 2d Mode Cardiac US 01/22/25 Logged DOP 22:11 Basic Metabolic Panel LAB 01/23/25 Logged 05:00 Basic Metabolic Panel LAB 01/24/25 Verified 05:00 Basic Metabolic Panel LAB 01/25/25 Verified 05:00 Complete Blood Count LAB 01/23/25 Logged 05:00 Complete Blood Count LAB 01/24/25 Verified 05:00 Complete Blood Count LAB 01/25/25 Verified 05:00 Patient Condition ORDERS 01/22/25 Transmitted 22:11 Allergies TONNY 01/22/25 In Process 22:11 Hydrocodone-Acet PHA 01/22/25 In Process 5/325mg Tab ([place] 22:15 Ondansetron Hcl PHA 01/22/25 In Process (Zofran) 22:15 Enoxaparin Sodium PHA 01/23/25 In Process (Lovenox) 10:00 Nitroglycerin PHA 01/22/25 In Process Sublingual (Ntrostat 22:15 Morphine Sulfate PHA 01/22/25 In Process Injection 22:15 Stat Ekg For Chest TONNY 01/22/25 In Process Pain 22:11 Notify Of Changes TONNY 01/22/25 In Process From Base 22:11 Chief Cardiopulmonary Technologist For TONNY 01/22/25 In Process 24 Hours 22:11 Emergency Dysrhythmia TONNY 01/22/25 In Process Protocol 22:11 Rhythm Strips Once TONNY 01/22/25 In Process Every Shift 22:11 Oxygen By Nasal RT 01/22/25 Transmitted Cannula 22:11 Glucose Blood PHA 01/23/25 In Process (Accu-Chek Comfort 07:00 Insulin R (Human) PHA 01/23/25 In Process (Insulin R) 22:00 Insulin R (Human) PHA 01/23/25 In Process (Insulin R) 07:00 Dextrose 50% Syringe PHA 01/22/25 In Process 22:15 * Cardiology Consult CONS 01/22/25 Transmitted 22:11 Atorvastatin (Lipitor) PHA 01/23/25 In Process 10:00 Lisinopril Tablet PHA 01/23/25 In Process (Zestril Tablet) 10:00 * Mask Former CONS 01/22/25 Transmitted Consult Melatonin (Melatonin) PHA 01/22/25 In Process 22:15 Hydralazine Injection PHA 01/22/25 In Process (Apresoline Inject 22:15 Drug Screen LAB 01/22/25 Logged 22:11 Pt Request For Service PT 01/23/25 Logged 02:26 Famotidine Tablet PHA 01/23/25 Transmitted (Pepcid Tablet) 10:00 Date of Service: Jan 23, 2025 Billing Provider: ALOK JEAN MD Common Visit Codes: NOT BILLABLE ALOK JEAN MD 01/23/25 1643: Review of Systems Allergies: Coded Allergies: Iodine (Verified Allergy, Severe, 08/17/23) Additional Comments Additional Comments Additional Comments Patient was seen and evaluated by me. I agree with the assessment and plan as outlined by my nurse practitioner. WILFREDO LANTIGUA PBX INSPECTOR Jan 23, 2025 02:39 ALOK JEAN MD Jan 23, 2025 16:43
[2025-01-23] MEDS: HYDROcodone-ACET 5/325MG TAB PO PRN (03:23)
[2025-01-23 06:20] LABS: Chloride 100 mmol/L (98-107); Potassium 3.7 mmol/L (3.5-5.1)
[2025-01-23 06:21] LABS: Anion Gap 10 (5-15); Calcium 9.4 mg/dL (8.7-10.4); Carbon Dioxide 26 mmol/L (20-31)
[2025-01-23 06:26] LABS: BUN/Creatinine Ratio 16.7 (10.0-20.0); Blood Urea Nitrogen 13 mg/dL (9-23)
[2025-01-23 06:33] LABS: Basophils # (auto) 0.1 10 ^3/uL (0-0.2); Basophils % (auto) 0.9 % (0.0-2.0); Eosinophils # (auto) 0.1 10 ^3/uL (0-0.8); Eosinophils % (auto) 0.7 % (0.0-7.0); Hematocrit 48.6 % (41.0-53.0); Hemoglobin 16.4 g/dL (13.5-17.5); Lymphocytes # (auto) 1.7 10 ^3/uL (0.4-5.4); Lymphocytes % (auto) 18.6 % (10.0-50.0); Mean Corpuscular Hgb Conc. 33.7 g/dL (32.0-36.0); Mean Corpuscular Volume 88.9 fL (80.0-100.0); Monocytes # (auto) 0.8 10 ^3/uL (0-1.3); Monocytes % (auto) 8.4 % (0.0-12.0); Neutrophils # (auto) 6.6 10 ^3/uL (1.6-8.6); Neutrophils % (auto) 71.4 % (37.0-80.0); Nucleated Red Blood Cells % 0.2 %; Platelet Count (auto) 138 10^3/uL (140-450); Red Blood Cells 5.47 10^6/uL (4.5-5.90); Red Cell Distribution Width 15.5 % (11.8-14.3); White Blood Cell 9.3 10^3/uL (4.4-10.8)
[2025-01-23 06:34] LABS: Glucose 147 mg/dL (74-106); Sodium 136 mmol/L (136-145)
[2025-01-23] MEDS: ACCU-CHEK COMFORT CURVE STRIP VI SCH (07:00)
[2025-01-23] MEDS: ACETAMINOPHEN 325 MG TAB PO PRN (08:58)
[2025-01-23] MEDS: InsuLIN REG 1unit/0.01ml Soln (100units/ml) SC SCH ×2 (08:59→23:02)
[2025-01-23] MEDS: LISINOPRIL 20 MG TAB PO SCH (10:20)
[2025-01-23] MEDS: ATORVASTATIN 20 MG TAB PO SCH (10:20)
[2025-01-23] MEDS: FAMOTIDINE 20 MG TAB PO SCH (10:21)
[2025-01-23] MEDS: ENOXAPARIN SOD 40 MG/0.4 ML SYRINGE SC SCH (10:21)
[2025-01-24] VITALS (8 sets, daily range): BP systolic 117–137; BP diastolic 49–84; PULSE 60–92; RESP 18–22; TEMP 97.4–98.7; O2SAT 91–98
[2025-01-24 08:38] LABS: Basophils # (auto) 0 10 ^3/uL (0-0.2); Basophils % (auto) 0.4 % (0.0-2.0); Eosinophils # (auto) 0.1 10 ^3/uL (0-0.8); Hematocrit 47.9 % (41.0-53.0); Hemoglobin 16.5 g/dL (13.5-17.5); Lymphocytes # (auto) 1.6 10 ^3/uL (0.4-5.4); Lymphocytes % (auto) 15.4 % (10.0-50.0); Mean Corpuscular Hemoglobin 30.9 pg (28.0-32.0); Mean Corpuscular Hgb Conc. 34.4 g/dL (32.0-36.0); Mean Corpuscular Volume 89.8 fL (80.0-100.0); Monocytes # (auto) 0.8 10 ^3/uL (0-1.3); Monocytes % (auto) 8.4 % (0.0-12.0); Neutrophils # (auto) 7.5 10 ^3/uL (1.6-8.6); Neutrophils % (auto) 74.8 % (37.0-80.0); Nucleated Red Blood Cells % 0.1 %; Platelet Count (auto) 137 10^3/uL (140-450); Red Blood Cells 5.33 10^6/uL (4.5-5.90); Red Cell Distribution Width 15.4 % (11.8-14.3); White Blood Cell 10.1 10^3/uL (4.4-10.8)
[2025-01-24 08:46] LABS: Anion Gap 11 (5-15); Calcium 9.6 mg/dL (8.7-10.4); Carbon Dioxide 25 mmol/L (20-31); Chloride 102 mmol/L (98-107); Potassium 3.8 mmol/L (3.5-5.1); Sodium 138 mmol/L (136-145)
[2025-01-24 08:52] LABS: BUN/Creatinine Ratio 24.4 (10.0-20.0); Blood Urea Nitrogen 21 mg/dL (9-23)
[2025-01-24 08:56] LABS: Glucose 188 mg/dL (74-106)
--- NOTE | 2025-01-24 10:38 | DVHINCON2 ---
Date Seen: Jan 24, 2025 Referring Physician RACHEL Mcginnis Reason for Consultation Chest pain, HTN, near syncope History of Present Illness This is a 69-year-old male who presented to the emergency room with a chief complaint of hypertension. The patient is very forgetful and a poor historian. Reports he was "kicked out" of his sister's home triggering high stress levels. States he did not take his home medications with him. Appears he was at [facility] at the onset of symptoms including dizziness, lightheadedness, and an episode of urinary incontinence. The patient also complains of intermittent episodes of chest pain. He is not sure if associated chest pain with this admission. He underwent a 12 lead electrocardiogram revealing a sinus rhythm with PACs. Serial troponin levels are negative. Significant medical history includes hypertension, dyslipidemia, diabetes mellitus, COPD, and morbid obesity. Past Medical History Past medical history reviewed. No other significant than mentioned above. Past Surgical History Left hand Family History: Alcoholism G8 FATHER FH: lung cancer G8 MOTHER Family History Family history reviewed. Both parents with possible CV history, unspecified. Social History Denies the use of illicit drugs, alcohol, or tobacco use. Allergies: Coded Allergies: Iodine (Verified Allergy, Severe, 08/17/23) Home Meds Reported Medications Meclizine Hcl (Meclizine Hcl) 25 Mg Tab, 25 MG PO DAILYPRN for 30 Days, MG 06/14/24 Atorvastatin Calcium (ATORVASTATIN CALCIUM) 40 Mg Tab, 40 MG PO DAILY, TAB 06/10/24 Sitagliptin Phosphate (Januvia) 100 Mg Tab, 100 MG PO DAILY, TAB 06/10/24 Omeprazole (Omeprazole Dr) 40 Mg Cap, 40 MG PO, CAP 06/10/24 Ibuprofen Micronized (Ibuprofen) 800 Mg Tab, 800 MG PO, TAB 06/10/24 Trazodone Hcl (Trazodone Hcl) 100 Mg Tab, 100 MG PO DAILY for INSOMNIA, MG 08/17/23 Metformin Hydrochloride (Metformin Hcl) 500 Mg Tab, 1000 MG PO BID for DIABETES for 30 Days, MG 08/17/23 Furosemide (Furosemide) 20 Mg Tab, 20 MG PO BIDD for EDEMA, MG 08/17/23 Glipizide (Glipizide) 5 Mg Tab, 5 MG PO BID for DIABETES, MG 08/17/23 Insulin Glargine (Lantus Solostar) 100 Unit/Ml Inj, 35 UNIT SC DAILY for DIABETES, INJ 08/17/23 Hydrocodone-Acetaminophen (Hydrocodone Bitartrate/AC 5-325 mg) 1 Tab Tab, 1 TAB PO Q12HP PRN for PAIN SCALE 1 THRU 6, TAB 08/17/23 Lisinopril (Lisinopril) 40 Mg Tab, 40 MG PO DAILY for HTN for 30 Days, MG 08/17/23 Home Meds Home medications reviewed. Current Medications Current Medications Medications (Trade) Dose Ordered Sig/Phyllis Route PRN Reason Start Time Stop Time Status Last Admin Insulin Human Regular (InsuLIN R) HS SC 01/23/25 22:00 01/23/25 23:02 Hydroxyzine Pamoate (Vistaril Oral) 25 mg HS PO 01/24/25 22:00 UNV Review of Systems Constitutional: No symptom reported Ears, Nose, & Throat: No symptom reported Eyes: No symptom reported Neurological: Dizziness, lightheadedness Pulmonary/Respiratory: No symptom reported Cardiovascular: Chest pain Gastrointestinal: No symptom reported Genitourinary: Urinary incontinence Musculoskeletal: No symptom reported Skin: No symptom reported Psychiatric: No symptom reported Endocrine: No symptom reported Hemotologic/Lymphatic: No symptom reported Vital Signs Vital Signs Date Time Temp Pulse Resp B/P (MAP) Pulse Ox O2 Delivery O2 Flow Rate FiO2 01/24/25 09:00 97.6 82 20 117/69 (85) 95 97.6 01/23/25 19:06 Room Air* 0 21 Physical Exam General Appearance: Cooperative. Well developed. Morbidly obese. In no acute distress. Left eye redness present Head Exam: Normal inspection Neck Exam: Normal inspection. Non-tender. Normal alignment Pulmonary/Respiratory: Chest non-tender. Clear bilateral breath sounds Cardiovascular/Chest: Regular rate and rhythm. S1, S2. SR with PACs. No murmurs. No JVD. Peripheral Pulses: 2+ Radial (R). 2+ Radial (L). 2+ Pedal (R). 2+ Pedal (L) Abdominal Exam: Normal bowel sounds. Soft. Ankle Exam: Positive non-pitting ankle edema Lower extremities: Positive non-pitting lower extremity edema Neuro/Mental Status: A&O x3. Coherent but very forgetful. Very poor historian Thoughts/Psych: Normal thought pattern. Appropriate mood and affect. Good judgement and insight Appearance: In no acute distress Skin Exam: Normal inspection. Normal color. Warm. Dry Labs/Diagnostic Data Labs Test 01/24/25 07:02 01/24/25 05:48 01/22/25 22:20 01/22/25 19:10 Range/Units White Blood Count 10.1 4.4-10.8 10^3/uL Red Blood Count 5.33 4.5-5.90 10^6/uL Hemoglobin 16.5 13.5-17.5 g/dL Hematocrit 47.9 41.0-53.0 % Mean Corpuscular Volume 89.8 80.0-100.0 fL Mean Corpuscular Hemoglobin 30.9 28.0-32.0 pg Mean Corpuscular Hemoglobin Concent 34.4 32.0-36.0 g/dL Red Cell Distribution Width 15.4 H 11.8-14.3 % Platelet Count 137 L 140-450 10^3/uL Mean Platelet Volume 9.8 6.9-10.8 fL Neutrophils (%) (Auto) 74.8 37.0-80.0 % Lymphocytes (%) (Auto) 15.4 10.0-50.0 % Monocytes (%) (Auto) 8.4 0.0-12.0 % Eosinophils (%) (Auto) 1.0 0.0-7.0 % Basophils (%) (Auto) 0.4 0.0-2.0 % Neutrophils # (Auto) 7.5 1.6-8.6 10 ^3/uL Lymphocytes # (Auto) 1.6 0.4-5.4 10 ^3/uL Monocytes # (Auto) 0.8 0-1.3 10 ^3/uL Eosinophils # (Auto) 0.1 0-0.8 10 ^3/uL Basophils # (Auto) 0 0-0.2 10 ^3/uL Nucleated Red Blood Cells 0.1 % Sodium Level 138 136-145 mmol/L Potassium Level 3.8 3.5-5.1 mmol/L Chloride Level 102 98-107 mmol/L Carbon Dioxide Level 25 20-31 mmol/L Anion Gap 11 5-15 Blood Urea Nitrogen 21 9-23 mg/dL Creatinine 0.86 0.700-1.30 mg/dL Glomerular Filtration Rate Calc 94 >90 mL/min BUN/Creatinine Ratio 24.4 H 10.0-20.0 Serum Glucose 188 H 74-106 mg/dL Calcium Level 9.6 8.7-10.4 mg/dL POC Glucose 162 H 70-106 mg/dl Troponin I High Sensitivity 6 </=54 ng/L B-Type Natriuretic Peptide 52.63 0-100 pg/mL Assessment Near syncopal event rule out acute CVA Rule out structural heart disease Rule out carotid artery disease Hypertension Dyslipidemia Insulin-dependent diabetes mellitus Suspected poor medical compliance Morbid obesity Plan/Recommendation (Dr. Duarte) We will continue further cardiac evaluation with a transthoracic echocardiogram to evaluate cardiac function. Continue blood pressure control with lisinopril and uptitrate as tolerated. Obtain a head CT to rule out acute neurological processes as well as a bilateral carotid duplex. Replete electrolytes as necessary. Continue DVT/VTE prophylaxis. Obtain UDS. Further orders per clinical course. Thank you for allowing us to participate in this patient's care. Please call if you have any questions or concerns. This medical document was created using an electronic medical record system with voice recognition software and computerized dictation system. Although this document has been carefully reviewed, there might still be some phonetic and typographical errors. Occasional wrong-word or ``sound-alike substitutions may have occurred due to the inherent limitations of voice recognition software. These areas are purely typographical due to imperfections of the software programs and do not reflect any compromise in the patient's medical care. Please read the chart carefully and recognize, using context, where these substitutions have occurred. Plan discussed with: Patient, Other NYHA Physical activity limitations: NA Date of Service: Jan 24, 2025 Billing Provider: JEFFREY VANEGAS Cardiology Common Codes: [id number] INP/OBS CARE (High) JEFFREY VANEGAS STRAW HAT MACHINE OPERATOR Jan 24, 2025 10:38
[2025-01-24 10:47] LABS: Triglycerides 101 mg/dL (< 150)
[2025-01-24 10:48] LABS: LDL Cholesterol 66 mg/dL (< 100)
[2025-01-24 10:49] LABS: Cholesterol 116 mg/dL (< 200)
[2025-01-24 10:51] LABS: HDL Cholesterol 35 mg/dL (40-59)
--- NOTE | 2025-01-24 11:37 | DVH ---
EXAM: CT HEAD WITHOUT CONTRAST INDICATION: Dizzines TECHNIQUE: CT of the head without intravenous contrast. Coronal and sagittal reformatted images are s ubmitted. Radiation Dose : 1. Head: CT Dose: CTDI volume is 57.78 mGy. Dose-length product is 1041.83 mGy*cm The dose indicators for CT are the volume Computed Tomography (CT) Dose Index (CTDIvol) and the Dose Length Product (DLP), and are measured in units of mGy and mGy-cm, respectively. These indicators are not patient dose, but values generated from the CT scanner acquisition factors. The report includes radiation exposure data for exposures received during this examination. All CT scans at this medical facility are performed using dose modulation techniques as appropriate to a performed exam including the following: Automated exposure control was utilized; adjustment of the MA and/or KV according to patient size; and use of iterative reconstruction technique. COMPARISON: CT HEAD WITHOUT CONTRAST on DOS: 01/15/25 FINDINGS: There is no evidence of acute intracranial hemorrhage, extra-axial collection, mass effect, midline s hift, herniation or hydrocephalus. There are periventricular and subcortical hypodensities, nonspecific, but likely reflecting sequelae of chronic microvascular ischemic changes. The ventricles, sulci and cisterns are age appropriate. The rodriguez-white differentiation is intact. The visualized paranasal sinuses and mastoid air cells are clear. No depressed calvarial fracture. The surrounding soft tissues are unremarkable. IMPRESSION: 1. No evidence of acute intracranial abnormality.
--- NOTE | 2025-01-24 11:44 | DVH ---
Carotid Duplex Date: 01/24/2025 10:36 AM Clinical History: Dizzines rule out carotid stenosis Comparison: None Technique: Duplex Doppler evaluation of the extracranial carotid and vertebral arteries including col or Doppler and spectral/pulsed waveform analysis was performed. Findings: RIGHT SIDE: The peak systolic velocities are 84 cm/s in the distal CCA and 84 cm/s in the proximal ICA.The ICA/CC A ratio is less than 1. The external carotid artery is patent with peak systolic velocity of 161 cm/s proximally. There is appropriate antegrade flow in the right vertebral artery. LEFT SIDE: The peak systolic velocities are 63 cm/s in the distal CCA and 80 cm/s in the proximal ICA.. The ICA/ CCA ratio is less than 2. The external carotid artery is patent with peak systolic velocity of 89 cm/s proximally. There is appropriate antegrade flow in the left vertebral artery. IMPRESSION: No hemodynamically significant stenosis noted in the right carotid system. No hemodynamically significant stenosis noted in the left carotid system. Reference: Radiology 2003; 229:[id number]
--- NOTE | 2025-01-24 18:48 | DVHPN2 ---
Subjective Overnight spent noted. Patient was homeless. Reviewed: Care Plan Changes from previous H/P or p: No Changes Eyes: No Pain, No Vision change, No Conjunctivae inflammation, No Eyelid inflammation, No Other, No Redness ENT: No Ear pain, No Ear discharge, No Nose pain, No Nose discharge, No Nose congestion, No Mouth pain, No Mouth swelling, No Throat pain, No Throat swelling, No Other Cardiovascular: Chest Pain; No Palpitations, No Orthopnea, No Paroxysmal Noc. Dyspnea; Edema, Lt Headedness; No Other Respiratory: No Cough, No Dry, No Shortness of breath, No SOB with excertion, No Wheezing, No Hemoptysis, No Pleuritic Pain, No Sputum, No Other Gastrointestinal: No Nausea, No Vomiting, No Abdominal Pain, No Diarrhea, No Constipation, No Melena, No Hematochezia, No Other Genitourinary: No Dysuria, No Frequency, No Incontinence, No Hematuria, No Retention, No Other Musculoskeletal: No other, No neck pain, No shoulder pain, No arm pain, No back pain, No hand pain, No leg pain, No foot pain Skin: No Rash, No Lesions, No Jaundice, No Bruising, No Other Objective Vitals Vital Signs Date Time Temp Pulse Resp B/P (MAP) Pulse Ox O2 Delivery O2 Flow Rate FiO2 01/24/25 17:00 97.4 85 18 118/76 (90) 94 97.4 01/23/25 19:06 Room Air* 0 21 Intake/Output Intake and Output 01/24/25 07:00 Intake Total 100 ml Balance 100 ml Intake Oral 100 ml # Bowel Movements 1 Exam HEENT pupils are reactive Neck is supple CV is S1-S2 regular rate and rhythm Respiratory diminished breath sound bases GI posterior bowel sounds Extremity no edema VISUAL LEAD no motor deficit Medications Current Medications Medications Dose Ordered Sig/Phyllis Route Start Time Stop Time Status Last Admin Dose Admin Acetaminophen 650 mg Q6HP PRN PO 01/22/25 22:15 01/23/25 08:58 650 MG Acetaminophen/ Hydrocodone Bitart 1 tab Q8HPRN PRN PO 01/22/25 22:15 01/24/25 18:39 1 TAB Ondansetron HCl 4 mg Q4HP PRN IV 01/22/25 22:15 Enoxaparin Sodium 40 mg DAILY SC 01/23/25 10:00 01/24/25 13:33 40 MG Nitroglycerin 0.4 mg Q5MINP PRN SL 01/22/25 22:15 Morphine Sulfate 2 mg Q30M PRN IV 01/22/25 22:15 Diagnostic Test (Pha) 1 strip ACHS 01/23/25 07:00 01/24/25 17:00 1 STRIP Insulin Human Regular HS SC 01/23/25 22:00 01/23/25 23:02 4 UNITS Insulin Human Regular AC SC 01/23/25 07:00 01/24/25 17:00 3 UNITS Dextrose 50 ml UD PRN IV 01/22/25 22:15 Atorvastatin Calcium 40 mg DAILY PO 01/23/25 10:00 01/24/25 13:33 40 MG Lisinopril 40 mg DAILY PO 01/23/25 10:00 01/24/25 13:39 40 MG Melatonin 10 mg QHSP PRN PO 01/22/25 22:15 Hydralazine HCl 10 mg Q4HPRN PRN IV 01/22/25 22:15 Famotidine 20 mg DAILY PO 01/23/25 10:00 01/24/25 13:33 20 MG Hydroxyzine Pamoate 25 mg HS PO 01/24/25 22:00 Laboratory Results Laboratory Tests 01/24/25 07:02 Chemistry Test 01/24/25 07:02 Calcium Level 9.6 mg/dL (8.7-10.4) Lipid panel Test 01/24/25 07:02 Cholesterol Level 116 mg/dL (< 200) HDL Cholesterol 35 mg/dL (40-59) L Triglycerides Level 101 mg/dL (< 150) HgA1c, TSH Test 01/24/25 07:02 Hemoglobin A1c 8.5 % A1C (<5.7) H Thyroid Stimulating Hormone (TSH) 0.95 uIU/mL (0.55-4.78) Assessment/Plan Assessment/Plan 69-year-old male with a known history of hypertension, diabetes mellitus type 2, chronic insomnia, forgetfulness, poor historian presented to the hospital with a dizziness found to have 1. Hypertensive urgency 2. Diabetes mellitus type 2 3. Forgetfulness 4. Chronic insomnia 5. Dyslipidemia 6. Homelessness -follow up 2D echo cardiology consultation, discharge plan. -social service consultation for placement. Plan discussed with: Patient Date of Service: Jan 24, 2025 Billing Provider: ALOK JEAN MD Common Visit Codes: NOT BILLABLE ALOK JEAN MD Jan 24, 2025 18:48
[2025-01-24] MEDS: hydrOXYzine 25 MG TAB or CAP PO SCH (21:24)
[2025-01-25] VITALS (7 sets, daily range): BP systolic 126–158; BP diastolic 56–85; PULSE 74–99; RESP 16–18; TEMP 36.7; O2SAT 92–94
[2025-01-25] MEDS: NITROGLYCERIN 0.4 MG SL TAB SL PRN (06:15)
--- NOTE | 2025-01-25 10:27 | ECG ---
[facility] Test Date: 2025-01-25 Test Time: 06:11:26 Pat Name: MERYL LEHMAN Department: Room: 0271T A Gender: M Behavioral Analyst: kvng : 1955 Requested By: ALOK JEAN Order Number: [id number] Reading MD: Reyes Duarte Measurements Intervals [place] Rate: 89 P: 12 OR: 169 QRS: 254 QRSD: 92 T: 26 QT: 379 QTc: 462 Interpretive Statements Sinus rhythm Atrial premature complex Probable left atrial enlargement Probable right ventricular hypertrophy Inferior infarct, old Electronically Signed On 01-25-2025 20:36:39 PDT by Reyes Duarte Please click the below link to view image of tracing.
[2025-01-25 11:02] LABS: Basophils # (auto) 0.1 10 ^3/uL (0-0.2); Basophils % (auto) 0.5 % (0.0-2.0); Eosinophils # (auto) 0.1 10 ^3/uL (0-0.8); Eosinophils % (auto) 0.9 % (0.0-7.0); Hematocrit 48.5 % (41.0-53.0); Hemoglobin 16.7 g/dL (13.5-17.5); Lymphocytes # (auto) 1.5 10 ^3/uL (0.4-5.4); Lymphocytes % (auto) 16.4 % (10.0-50.0); Mean Corpuscular Hemoglobin 31.1 pg (28.0-32.0); Mean Corpuscular Hgb Conc. 34.5 g/dL (32.0-36.0); Mean Corpuscular Volume 90.3 fL (80.0-100.0); Monocytes # (auto) 0.9 10 ^3/uL (0-1.3); Monocytes % (auto) 9.3 % (0.0-12.0); Neutrophils # (auto) 6.8 10 ^3/uL (1.6-8.6); Neutrophils % (auto) 72.9 % (37.0-80.0); Nucleated Red Blood Cells % 0.1 %; Platelet Count (auto) 140 10^3/uL (140-450); Red Blood Cells 5.37 10^6/uL (4.5-5.90); Red Cell Distribution Width 15.6 % (11.8-14.3); White Blood Cell 9.3 10^3/uL (4.4-10.8)
[2025-01-25 11:09] LABS: Chloride 101 mmol/L (98-107); Potassium 4.1 mmol/L (3.5-5.1); Sodium 138 mmol/L (136-145)
[2025-01-25 11:10] LABS: Anion Gap 9 (5-15); Carbon Dioxide 28 mmol/L (20-31)
[2025-01-25 11:11] LABS: Calcium 9.8 mg/dL (8.7-10.4)
[2025-01-25 11:15] LABS: BUN/Creatinine Ratio 25.8 (10.0-20.0)
[2025-01-25 11:18] LABS: Blood Urea Nitrogen 23 mg/dL (9-23); Glucose 208 mg/dL (74-106)
--- NOTE | 2025-01-25 13:48 | DVHPN2 ---
Consult Progress Note Date Seen: Jan 25, 2025 Subjective Review of Systems: CVS:Normal, RESPIRATORY:Normal, NEURO:Normal Objective vital signs Vital Sign Date Time Temp Pulse Resp B/P (MAP) Pulse Ox O2 Delivery O2 Flow Rate FiO2 01/25/25 12:33 98.0 99 16 133/85 (101) 92 98.0 01/25/25 07:30 Room Air* 0 21 Total Intake and Output 01/24/25 01/24/25 01/25/25 15:00 23:00 07:00 Intake Total 225 ml 200 ml Balance 225 ml 200 ml medications Current Medications Medications Dose Ordered Sig/Phyllis Route Start Time Stop Time Status Last Admin Dose Admin Acetaminophen 650 mg Q6HP PRN PO 01/22/25 22:15 01/23/25 08:58 650 MG Acetaminophen/ Hydrocodone Bitart 1 tab Q8HPRN PRN PO 01/22/25 22:15 01/25/25 09:54 1 TAB Ondansetron HCl 4 mg Q4HP PRN IV 01/22/25 22:15 Enoxaparin Sodium 40 mg DAILY SC 01/23/25 10:00 01/24/25 13:33 40 MG Nitroglycerin 0.4 mg Q5MINP PRN SL 01/22/25 22:15 01/25/25 06:15 0.4 MG Morphine Sulfate 2 mg Q30M PRN IV 01/22/25 22:15 Diagnostic Test (Pha) 1 strip ACHS 01/23/25 07:00 01/25/25 11:25 1 STRIP Insulin Human Regular HS SC 01/23/25 22:00 01/24/25 22:01 2 UNITS Insulin Human Regular AC SC 01/23/25 07:00 01/25/25 11:26 3 UNITS Dextrose 50 ml UD PRN IV 01/22/25 22:15 Atorvastatin Calcium 40 mg DAILY PO 01/23/25 10:00 01/25/25 09:49 40 MG Lisinopril 40 mg DAILY PO 01/23/25 10:00 01/25/25 09:50 40 MG Melatonin 10 mg QHSP PRN PO 01/22/25 22:15 Hydralazine HCl 10 mg Q4HPRN PRN IV 01/22/25 22:15 Famotidine 20 mg DAILY PO 01/23/25 10:00 01/25/25 09:50 20 MG Hydroxyzine Pamoate 25 mg HS PO 01/24/25 22:00 01/24/25 21:24 25 MG Examination: LUNGS:Normal, CVS:Normal, NEURO:Normal laboratory and microbiology Laboratory Tests 01/25/25 10:25 Test 01/25/25 10:25 Range/Units Serum Glucose 208 H 74-106 mg/dL Problem List/Assessment/Plan Problem List/Assessment/Plan Near syncopal Hypertension Dyslipidemia Insulin-dependent diabetes mellitus Suspected poor medical compliance Morbid obesity Plan/Recommendation (Dr. Duarte) Preliminary transthoracic echocardiogram revealed optimal LVEF. Bilateral carotid duplex and head CT unremarkable. Continue blood pressure control with lisinopril and uptitrate as tolerated. Replete electrolytes as necessary. Continue DVT/VTE prophylaxis. UDS pending. There is no further cardiac work-up indicated. Kindly call if in need to re-consult. Thank you for allowing us to participate in this patient's care. This medical document was created using an electronic medical record system with voice recognition software and computerized dictation system. Although this document has been carefully reviewed, there might still be some phonetic and typographical errors. Occasional wrong-word or ``sound-alike substitutions may have occurred due to the inherent limitations of voice recognition software. These areas are purely typographical due to imperfections of the software programs and do not reflect any compromise in the patient's medical care. Please read the chart carefully and recognize, using context, where these substitutions have occurred. Plan discussed with: Patient, Other Date of Service: Jan 25, 2025 Billing Provider: JEFFREY VANEGAS Cardiology Common Codes: [id number] INP/OBS CARE(Mod) JEFFREY VANEGAS Jan 25, 2025 13:48
[2025-01-25] MEDS ORDERED: ATOR40TA52 PO (16:51)
[2025-01-25] MEDS ORDERED: INSUINJ37 SC (16:55)
[2025-01-25] MEDS ORDERED: METF-370 PO (16:55)
[2025-01-25] MEDS ORDERED: TRAZ-228 PO (16:55)
[2025-01-25] MEDS ORDERED: GLIP5TAB21 PO (16:55)
[2025-01-25] MEDS ORDERED: LISI40TA16 PO (16:55)
[2025-01-25] MEDS ORDERED: FURO20TA3 PO (16:55)
[2025-01-25] MEDS ORDERED: OMEP-448 PO (16:55)
[2025-01-25] MEDS ORDERED: MECL-90 PO (16:55)
[2025-01-25] MEDS ORDERED: SITA100T7 PO (16:55)
--- NOTE | 2025-01-25 16:58 | DVHDS2 ---
Discharge Summary Date of Admission Jan 22, 2025 at 22:11 Date of Discharge: Jan 24, 2025 Labs/Diagnostic Data: Laboratory Results Test 01/25/25 11:08 01/25/25 10:25 01/24/25 07:02 01/22/25 19:10 POC Glucose 197 mg/dl (70-106) White Blood Count 9.3 10^3/uL (4.4-10.8) Red Blood Count 5.37 10^6/uL (4.5-5.90) Hemoglobin 16.7 g/dL (13.5-17.5) Hematocrit 48.5 % (41.0-53.0) Mean Corpuscular Volume 90.3 fL (80.0-100.0) Mean Corpuscular Hemoglobin 31.1 pg (28.0-32.0) Mean Corpuscular Hemoglobin Concent 34.5 g/dL (32.0-36.0) Red Cell Distribution Width 15.6 % (11.8-14.3) Platelet Count 140 10^3/uL (140-450) Mean Platelet Volume 9.0 fL (6.9-10.8) Neutrophils (%) (Auto) 72.9 % (37.0-80.0) Lymphocytes (%) (Auto) 16.4 % (10.0-50.0) Monocytes (%) (Auto) 9.3 % (0.0-12.0) Eosinophils (%) (Auto) 0.9 % (0.0-7.0) Basophils (%) (Auto) 0.5 % (0.0-2.0) Neutrophils # (Auto) 6.8 10 ^3/uL (1.6-8.6) Lymphocytes # (Auto) 1.5 10 ^3/uL (0.4-5.4) Monocytes # (Auto) 0.9 10 ^3/uL (0-1.3) Eosinophils # (Auto) 0.1 10 ^3/uL (0-0.8) Basophils # (Auto) 0.1 10 ^3/uL (0-0.2) Nucleated Red Blood Cells 0.1 % Sodium Level 138 mmol/L (136-145) Potassium Level 4.1 mmol/L (3.5-5.1) Chloride Level 101 mmol/L (98-107) Carbon Dioxide Level 28 mmol/L (20-31) Anion Gap 9 (5-15) Blood Urea Nitrogen 23 mg/dL (9-23) Creatinine 0.89 mg/dL (0.700-1.30) Glomerular Filtration Rate Calc 93 mL/min (>90) BUN/Creatinine Ratio 25.8 (10.0-20.0) Serum Glucose 208 mg/dL (74-106) Calcium Level 9.8 mg/dL (8.7-10.4) Troponin I High Sensitivity 3 ng/L (</=54) Hemoglobin A1c 8.5 % A1C (<5.7) Triglycerides Level 101 mg/dL (< 150) Cholesterol Level 116 mg/dL (< 200) LDL Cholesterol 66 mg/dL (< 100) HDL Cholesterol 35 mg/dL (40-59) Thyroid Stimulating Hormone (TSH) 0.95 uIU/mL (0.55-4.78) B-Type Natriuretic Peptide 52.63 pg/mL (0-100) Other Laboratory Tests 01/25/25 10:25 Brief Hx & Hospital Course: 69-year-old male with a known history of hypertension, diabetes mellitus type 2, chronic insomnia, forgetfulness, poor historian presented to the hospital with a dizziness found to have near-syncope and hypertensive urgency. Patient was also forgetfulness. Patient was has a chronic insomnia has been. Patient underwent 2D echo cardiology cleared the patient to be discharged. There was no tele arrhythmia changes. Patient was homeless currently need correction or some assisted living facility. Social service has been consulted once plans he was arranged patient was can be discharged. All the prescription has been filled again. Condition at Discharge: Stable Final Diagnosis/Problems List 1.Near-syncope ruled out acute CVA 2. Rule out cardiac arrhythmia 3. Hypertensive urgency 4. Insulin-dependent diabetes mellitus 5. Chronic insomnia 6. Homelessness patient was seven morbid obesity class III Discharge Disposition: Assisted Living Facility SNF Discharge Will this Physician continue t: No Discharge Instruct/Medications Diet: Cardiac 2g Na,low cholest Diet comment: 1800 ADA diet Activity: No Restrictions, As Tolerated Follow Up/Referral: Follow up with the PCP and Cardiology in one two to be Medications: Resume home medications. Discharge Statement: "Patient was advised to return to the ER or call 911 if any headaches, dizziness, shortness of breath, chest pain, abdominal pain, bleeding, fevers, or worsening of medical condition. Patient was counseled about treatment plan, medications, possible side effects, patientverbalized understanding. All questions were answered to the best of my ability. This discharge took greater then 30 minutes in planning, reviewing documentation, counseling the patient, and discussing with other team members." ASSESSMENT ASSESSMENT Assessment 1.Near-syncope ruled out acute CVA 2. Rule out cardiac arrhythmia 3. Hypertensive urgency 4. Insulin-dependent diabetes mellitus 5. Chronic insomnia 6. Homelessness patient was seven morbid obesity class III Date of Service: Jan 25, 2025 Billing Provider: ALOK JEAN MD Common Visit Codes: NOT BILLABLE ALOK JEAN MD Jan 25, 2025 16:58
--- NOTE | 2025-01-28 22:00 | DVHSR ---
APPROVED REPORT EXAM: Two-dimensional and M-mode echocardiogram with Doppler and color Doppler. Blood Pressure: 137/82 mmHg INDICATION Chest Pain near syncope RISK FACTORS Height: 67, Weight: 260 DIMENSIONS LVDd4.2 (3.8-5.7cm)LA (2D)4.6 (1.9-4.0cm)Aortic Root4.3 (2.0-3.7cm) LVDs3.0 (2.5-4.0cm)LA (MM) (1.9-4.0cm)Aortic Cusp Exc2.3 (1.5-2.0cm) EF (%) 55.0 (55-70%)Rt. Atrium (1.9-4.0cm)Asc. Aorta cm Mitral Valve MitralMitral Stenosis E wave0.45m/sMV Mean GR.mmHg A wave0.81m/sMV Peak GR.mmHg E/A ratio0.62D MVAcm2 DECEL [id number] 1/2 [id number] IVRTmsDop MVA4.55cm2 Aortic Valve Aortic ValveAortic Stenosis V11.10m/Prabha Mean GR.3mmHg V21.19m/Prabha Peak GR.6mmHg LVOT Diameter1.8 (1.8-2.4cm)Doppler AVA2.35cm2 AI P 1/2 Egwo056.71ms Pulmonic Valve V20.85m/s Other Information Technically limited study due to body habitus, patient position and patient moving. Conclusion MODERATE DEGREE LVH AND MODERATE DEGREE LV DIASTOLIC DYSFUNCTION LV EF IS 65% AND IS NORMAL CALCIFIED AORTIC LEAFLETS MILD AORTIC REGURGITATION NORMALMITRAL,TRICUSPID AND PULMONIC VALVES NO EFFUSION NORMAL RV FUNCTION
== END 2025-01-25 15:33 | disposition home or self-care (01) | DRG 305 ==
LOC: ER 18:21 → OVERFLOW 22:11 → TELE-WESTW 01-23 21:38
PROVIDERS: ADMIT Internal Medicine; ATTEND Internal Medicine
DX: I16.0 Hypertensive urgency (principal); E87.1 Hypo-osmolality and hyponatremia; Z59.00 Homelessness unspecified; Z68.41 Body mass index [BMI] 40.0-44.9, adult; G47.00 Insomnia, unspecified; E11.9 Type 2 diabetes mellitus without complications; E87.6 Hypokalemia; E78.5 Hyperlipidemia, unspecified; I50.9 Heart failure, unspecified; F51.04 Psychophysiologic insomnia; I11.0 Hypertensive heart disease with heart failure; J44.9 Chronic obstructive pulmonary disease, unspecified; I49.9 Cardiac arrhythmia, unspecified; E66.01 Morbid (severe) obesity due to excess calories; M43.6 Torticollis; D72.829 Elevated white blood cell count, unspecified; F41.9 Anxiety disorder, unspecified; Z79.1 Long term (current) use of non-steroidal anti-inflammatories (NSAID); Z79.84 Long term (current) use of oral hypoglycemic drugs; Z79.4 Long term (current) use of insulin; Z79.899 Other long term (current) drug therapy; Z80.1 Family history of malignant neoplasm of trachea, bronchus and lung
CPT/HCPCS: 36415; 70450; 71045; 80048; 80061; 82962; 83036; 83880; 84443; 84484; 85025; 93005; 93306; 93886; 97110; 97116; 97163; G0378; J1815

== ENCOUNTER 2025-04-25 10:02 | Inpatient (IN) | payer MEDICARE, MEDICAID ==
[~2025-04-25] VITALS: Ht 167.6 cm; Wt 95.0 kg
--- NOTE | 2025-04-25 10:12 | ECG ---
[facility] Test Date: 2025-04-25 Test Time: 10:09:32 Pat Name: MERYL LEHMAN Department: ER Room: 0232T Gender: M Child Therapist: LIVAN : 1955 Requested By: JOE GALVEZ Order Number: [id number] Reading MD: Reyes Duarte Measurements Intervals [place] Rate: 74 P: 7 MS: 186 QRS: -83 QRSD: 95 T: 32 QT: 418 QTc: 464 Interpretive Statements Sinus rhythm Left anterior fascicular block RSR' in V1 or V2, right VCD or RVH Electronically Signed On 05-01-2025 22:05:58 PDT by Reyes Duarte Please click the below link to view image of tracing.
--- NOTE | 2025-04-25 10:34 | ED.PDOC ---
HPI Comments 69-year-old male brought in by EMS presents with a chief complaint of chest pain x 2 hours. Patient is a poor historian and states that he has memory issues due to "possibly dementia, but I don't know". Patient states that his pain woke him up from his sleep and it is localized to his left chest, nonradiating, describes as sharp. Patient was given NTG and ASA per EMS. Patient comes from an assisted living facility. Chief Complaint: Chest Pain Time Seen by MD: 10:18 Primary Care Provider: Reviewed Notes: Medications, Allergies Allergies: Coded Allergies: Iodine (Verified Allergy, Severe, 08/17/23) Home Meds Active Scripts Meclizine Hcl (Meclizine Hcl) 25 Mg Tab, 25 MG PO DAILYPRN for 30 Days, #30 MG Prov:ALOK JEAN MD 01/25/25 Sitagliptin Phosphate (Januvia) 100 Mg Tab, 100 MG PO DAILY, #30 TAB Prov:ALOK JEAN MD 01/25/25 Omeprazole (Omeprazole Dr) 40 Mg Cap, 40 MG PO DAILY, #30 CAP Prov:ALOK JEAN MD 01/25/25 Trazodone Hcl (Trazodone Hcl) 100 Mg Tab, 100 MG PO DAILY for INSOMNIA, #30 MG Prov:ALOK JEAN MD 01/25/25 Metformin Hydrochloride (Metformin Hcl) 500 Mg Tab, 1000 MG PO BID for DIABETES for 30 Days, #60 MG Prov:ALOK JEAN MD 01/25/25 Furosemide (Furosemide) 20 Mg Tab, 20 MG PO BIDD for EDEMA for 30 Days, #60 MG Prov:ALOK JEAN MD 01/25/25 Glipizide (Glipizide) 5 Mg Tab, 5 MG PO BID for DIABETES, #60 MG Prov:ALOK JEAN MD 01/25/25 Insulin Glargine (Lantus Solostar) 100 Unit/Ml Inj, 35 UNIT SC DAILY for DIABETES for 30 Days, #1000 UNITS Prov:ALKO JEAN MD 01/25/25 Lisinopril (Lisinopril) 40 Mg Tab, 40 MG PO DAILY for HTN for 30 Days, #30 MG Prov:ALOK JEAN MD 01/25/25 Atorvastatin Calcium (ATORVASTATIN CALCIUM) 40 Mg Tab, 40 MG PO DAILY for 30 Days, #30 TAB Prov:ALOK JEAN MD 01/25/25 Reported Medications Ibuprofen Micronized (Ibuprofen) 800 Mg Tab, 800 MG PO, TAB 06/10/24 Hydrocodone-Acetaminophen (Hydrocodone Bitartrate/AC 5-325 mg) 1 Tab Tab, 1 TAB PO Q12HP PRN for PAIN SCALE 1 THRU 6, TAB 08/17/23 Information Source: Patient Mode of Arrival: EMS Severity: Moderate Timing: Hours Duration: Since onset Prehospital treatment: 12 Lead EKG, ASA, Stemhole Borer And Topper, NTG Location: Chest (L) Radiation: No Radiation Quality: Sharp Onset: At Rest Cardiac Risk Factors: None PE Risk Factors: None History of: None Past Medical History PAST MEDICAL HISTORY: Anxiety, Arthritis, Cancer, CHF, COPD, DM, High Lipids, HTN Surgical History: Appendectomy, Cholecystectomy, Hernia Repair, Tonsillectomy Family History Family History: Reviewed,noncontributory to illness, Unknown Social History Smoker: Non-Smoker Alcohol: Denies ETOH Use Drugs: Denies Drug Use Lives In: Assisted Care Constitutional: denies: chills, diaphoresis, fatigue, fever, malaise, sweats, weakness, others EENTM: denies: blurred vision, double vision, ear bleeding, ear discharge, ear drainage, ear pain, ear ringing, eye pain, eye redness, hearing loss, mouth pain, mouth swelling, nasal discharge, nose bleeding, nose congestion, nose pain, photophobia, tearing, throat pain, throat swelling, voice changes, others Respiratory: denies: cough, hemoptysis, orthopnea, SOB at rest, shortness of breath, SOB with excertion, stridor, wheezing, others Cardiovascular: reports: chest pain; denies: dizzy spells, diaphoresis, Dyspnea on exertion, edema, irregular heart beat, left arm pain, lightheadedness, palpitations, PND, syncope, others Gastrointestinal: denies: abdomen distended, abdominal pain, blood streaked bowels, constipated, diarrhea, dysphagia, difficulty swallowing, hematemesis, melena, nausea, poor appetite, poor fluid intake, rectal bleeding, rectal pain, vomiting, others Genitourinary: denies: burning, dysuria, flank pain, frequency, hematuria, incontinence, penile discharge, penile sore, pain, testicle pain, testicle swelling, urgency, others Neurological: denies: dizziness, fainting, headache, left sided numbness, left sided weakness, numbness, paresthesia, pre-existing deficit, right sided numbness, right sided weakness, seizure, speech problems, tingling, tremors, weakness, others Musculoskeletal: denies: back pain, gout, joint pain, joint swelling, muscle pain, muscle stiffness, neck pain, others Integumetry: denies: bruises, change in color, change in hair/nails, dryness, laceration, lesions, lumps, rash, wounds, others Allergic/Immunocompromised: denies: Difficulty Healing, Frequent Infections, Hives, Itching, others Hematologic/Lymphatic: denies: anemia, blood clots, easy bleeding, easy bruising, swollen glands, others Endocrine: denies: excessive hunger, excessive sweating, excessive thirst, excessive urination, flushing, intolerance to cold, intolerance to heat, unexplained weight gain, unexplained weight loss, others Psychiatric: denies: anxiety, bipolar disorder, depression, hopeless, panic disorder, schizophrenia, sleepless, suicidal, others Unable to Obtain due to: Dementia All Other Systems: Reviewed and Negative Physical Exam General Appearance: No Apparent Distress, Obese HEENT: Other (Pupils and face symmetric. Moist mucous membranes.) Neck: Full Range of Motion, Normal Inspection Respiratory: Lungs Clear, No Accessory Muscle Use, No Respiratory Distress, Normal Breath Sounds Cardiovascular: No Edema, No JVD, Regular Rate/Rhythm Breast Exam: Deferred Gastrointestinal: Non Tender, Soft Genitalia: Deferred Pelvic: Deferred Rectal: Deferred Extremities: Normal inspection, Normal range of motion, Non-tender, No pedal edema Neurologic: Alert (Oriented x3), Normal Affect, Normal Mood, Other (Ambulatory) Cerebellar Function: NOT DONE Reflexes: NOT DONE Skin: Dry, Normal Color, Warm Lymphatic: NOT DONE EKG EKG : Comments Sinus rhythm, rate 74, normal intervals, left axis deviation, left anterior fascicular block, possible incomplete right bundle-branch block, nonspecific T change. Was a procedure done? Was a procedure done?: No CP Differential Dx Differential Diagnosis: Angina, Anxiety / Panic Attack, [place], Pulmonary Embolus Differential Diagnosis: CHF Differential Diagnosis: Esophageal reflux/spasm, Gastritis, Pericarditis X-Ray, Labs, Meds, VS Vital Signs Date Time Temp Pulse Resp B/P (MAP) Pulse Ox O2 Delivery O2 Flow Rate FiO2 04/25/25 14:00 66 17 122/88 04/25/25 13:32 97.9 66 20 122/86 (98) 97 97.9 04/25/25 13:32 66 20 122/86 04/25/25 13:32 Room Air* 0 21 04/25/25 10:54 106/56 04/25/25 10:10 98.6 82 18 129/76 (93) 94 98.6 04/25/25 10:09 74 Lab Test 04/25/25 13:13 04/25/25 11:08 04/25/25 10:16 Range/Units Troponin I High Sensitivity < 3 L < 3 L < 3 L </=54 ng/L White Blood Count 6.8 4.4-10.8 10^3/uL Red Blood Count 4.96 4.5-5.90 10^6/uL Hemoglobin 15.2 13.5-17.5 g/dL Hematocrit 44.6 41.0-53.0 % Mean Corpuscular Volume 89.8 80.0-100.0 fL Mean Corpuscular Hemoglobin 30.7 28.0-32.0 pg Mean Corpuscular Hemoglobin Concent 34.2 32.0-36.0 g/dL Red Cell Distribution Width 14.2 11.8-14.3 % Platelet Count 117 L 140-450 10^3/uL Mean Platelet Volume 9.5 6.9-10.8 fL Neutrophils (%) (Auto) 66.1 37.0-80.0 % Lymphocytes (%) (Auto) 20.6 10.0-50.0 % Monocytes (%) (Auto) 10.7 0.0-12.0 % Eosinophils (%) (Auto) 1.7 0.0-7.0 % Basophils (%) (Auto) 0.9 0.0-2.0 % Neutrophils # (Auto) 4.5 1.6-8.6 10 ^3/uL Lymphocytes # (Auto) 1.4 0.4-5.4 10 ^3/uL Monocytes # (Auto) 0.7 0-1.3 10 ^3/uL Eosinophils # (Auto) 0.1 0-0.8 10 ^3/uL Basophils # (Auto) 0.1 0-0.2 10 ^3/uL Nucleated Red Blood Cells 0.1 % Sodium Level 134 L 136-145 mmol/L Potassium Level 4.0 3.5-5.1 mmol/L Chloride Level 98 98-107 mmol/L Carbon Dioxide Level 29 20-31 mmol/L Anion Gap 7 5-15 Blood Urea Nitrogen 11 9-23 mg/dL Creatinine 0.98 0.700-1.30 mg/dL Glomerular Filtration Rate Calc 83 >90 mL/min BUN/Creatinine Ratio 11.2 10.0-20.0 Serum Glucose 302 H 74-106 mg/dL Calcium Level 9.4 8.7-10.4 mg/dL B-Type Natriuretic Peptide 21.99 0-100 pg/mL Current Medications Medications (Trade) Dose Ordered Sig/Phyllis Route Start Time Stop Time Status Last Admin Nitroglycerin (Nitro-Bid) 1 pkg ONCE ONCE TD 04/25/25 10:30 04/25/25 10:31 DC 04/25/25 10:54 Morphine Sulfate 4 mg ONCE ONCE IV 04/25/25 13:15 04/25/25 13:16 DC 04/25/25 13:32 Ondansetron HCl (Zofran) 4 mg ONCE ONCE IV 04/25/25 13:15 04/25/25 13:16 DC 04/25/25 13:31 PROCEDURE(s): CXRP - CHEST PORTABLE REASON: cp ORDER NUMBER(s): [id number], ACCESSION NUMBER(s): [id number] CHEST RADIOGRAPH Indication: cp Technique: Single frontal view of the chest was obtained COMPARISON: XY CHEST XRAY 1 VIEW on DOS: 01/22/25, XY CHEST PORTABLE on DOS: 01/15/25, XY CHEST PORTABLE on DOS: 01/04/25, XY CHEST PORTABLE on DOS: 06/16/24, XY CHEST PORTABLE on DOS: 11/12/23 FINDINGS: Lines and Tubes: None Lungs: Bibasilar subsegmental atelectasis Pleura: No effusion. No pneumothorax. Cardiomediastinal contours: Unremarkable Bones: Unremarkable IMPRESSION: Bibasilar subsegmental atelectasis X-Ray, Labs, Meds, VS Comment 69-year-old male with a history of dementia, hypertension, diabetes, dyslipidemia, CHF and COPD complaining of chest pain Vitals unremarkable Exam unremarkable Rhythm strip independently interpreted by me: Sinus rhythm, rate 74, no ectopy. Chest x-ray IMPRESSION: Bibasilar subsegmental atelectasis CBC unremarkable, metabolic panel remarkable for sodium 134, glucose 302, BNP and troponins negative Patient treated with the following in the ED: Nitro-Bid 1/2 inch to chest wall, morphine 4 mg IV, Zofran 4 mg IV Patient did not get relief with nitro bid, so was medicated with morphine which improved his pain. Vitals remained stable. Plan is to admit the patient for Cardiology evaluation. Time of 1ST Reevaluation: 10:48 Reevaluation 1ST: Unchanged Patient Education/Counseling: Diagnosis, Treatment Family Education/Counseling: No Family Present SEPSIS Sepsis Screen Physician Orders Chest Portable (04/25/25 10:14) (Nf) Atorvastatin Calcium (04/26/25 10:00) (Nf) Insulin Glargine (Lantus Solostar) (04/26/25 10:00) (Nf) Lisinopril (04/26/25 10:00) (Nf) Omeprazole (Omeprazole Dr) (04/26/25 10:00) (Nf) Trazodone Hcl (04/26/25 10:00) Admit (04/25/25 15:07) Code Status (04/25/25 15:07) Vital Signs .PER UNIT PROTOCOL (04/25/25 15:07) Stemhole Borer And Topper (04/25/25 15:07) May Elevate Hob ____ Degrees (04/25/25 15:07) Cardiac Diet-2gna,Lofat,Lochol (04/25/25 Dinner) Aspirin Tablet (04/26/25 10:00) Lipitor 40mg Hs Hi-Intensity (04/25/25 22:00) Morphine Sulfate Injection (04/25/25 15:15) Acetaminophen Tablet (Tylenol Tablet) (04/25/25 15:15) Docusate Sodium Capsule (Colace Capsule) (04/26/25 10:00) Complete Blood Count (04/26/25 04:00) Comprehensive Metabolic Panel (04/26/25 04:00) Prothrombin Time W/ Inr (04/25/25 15:07) Nitroglycerin Sublingual (Ntrostat Subli (04/25/25 15:15) Ondansetron Hcl (Zofran) (04/25/25 15:15) Electrocardigram (04/25/25 15:07) Troponin-I Hs (04/25/25 15:07) Cardiac Rehabilitation - Outpa (04/25/25 ) Stat Ekg For Chest Pain (04/25/25 15:07) Notify Md Of Changes From Base (04/25/25 15:07) Clinical Account Specialist For 24 Hours (04/25/25 15:07) Emergency Dysrhythmia Protocol (04/25/25 15:07) Rhythm Strips Once Every Shift (04/25/25 15:07) Oxygen By Nasal Cannula (04/25/25 15:07) * Cardiology Consult (04/25/25 15:07) Incentive Spirometry Q 1hr (04/25/25 15:12) Vital Signs Date Time Temp Pulse Resp B/P (MAP) Pulse Ox O2 Delivery O2 Flow Rate FiO2 04/25/25 14:00 66 17 122/88 04/25/25 13:32 97.9 66 20 122/86 (98) 97 97.9 04/25/25 13:32 66 20 122/86 04/25/25 13:32 Room Air* 0 21 04/25/25 10:54 106/56 04/25/25 10:10 98.6 82 18 129/76 (93) 94 98.6 04/25/25 10:09 74 Laboratory Tests Test 04/25/25 10:16 White Blood Count 6.8 10^3/uL (4.4-10.8) Medications Medications Dose Ordered Sig/Phyllis Route Start Time Stop Time Status Last Admin Dose Admin Morphine Sulfate 4 mg ONCE ONCE IV 04/25/25 13:15 04/25/25 13:16 DC 04/25/25 13:32 Nitroglycerin 1 pkg ONCE ONCE TD 04/25/25 10:30 04/25/25 10:31 DC 04/25/25 10:54 Ondansetron HCl 4 mg ONCE ONCE IV 04/25/25 13:15 04/25/25 13:16 DC 04/25/25 13:31 Departure 1 Departure Time of Disposition: 12:55 Impression: Primary Impression: Chest pain with high risk for cardiac etiology Additional Impression: Hyperglycemia Disposition: 09 ADMITTED INPATIENT Admit to: Tele Condition: Guarded Critical Care Note Critical Care Time?: No Stability Stability form required: No Heart Score Heart Score: Heart Score Response (Comments) Value History Moderate Suspicious 1 EKG Repolarization Disturb 1 Age >65 2 Risk Factors >3 or Hx ASHD 2 Troponin Normal limit 0 Total 6 I personally scribed for TANIYA RUIZ MD ([email or web address]) on 04/25/25 at 10:34. Electronically submitted by Timothy Luther [email or web address]). TANIYA RUIZ MD Apr 25, 2025 10:34
[2025-04-25 10:46] LABS: Chloride 98 mmol/L (98-107); Potassium 4.0 mmol/L (3.5-5.1)
[2025-04-25 10:47] LABS: Anion Gap 7 (5-15); Carbon Dioxide 29 mmol/L (20-31)
[2025-04-25 10:48] LABS: Calcium 9.4 mg/dL (8.7-10.4)
[2025-04-25 10:50] LABS: Sodium 134 mmol/L (136-145)
[2025-04-25 10:52] LABS: BUN/Creatinine Ratio 11.2 (10.0-20.0); Blood Urea Nitrogen 11 mg/dL (9-23)
[2025-04-25 10:53] LABS: Glucose 302 mg/dL (74-106); Hematocrit 44.6 % (41.0-53.0); Hemoglobin 15.2 g/dL (13.5-17.5); Mean Corpuscular Hemoglobin 30.7 pg (28.0-32.0); Mean Corpuscular Volume 89.8 fL (80.0-100.0); Nucleated Red Blood Cells % 0.1 %
--- NOTE | 2025-04-25 10:53 | DVH ---
CHEST RADIOGRAPH Indication: cp Technique: Single frontal view of the chest was obtained COMPARISON: XY CHEST XRAY 1 VIEW on DOS: 01/22/25, XY CHEST PORTABLE on DOS: 01/15/25, XY CHEST PORTABLE on DOS: 01/04/25, XY CHEST PORTABLE on DOS: 06/16/24, XY CHEST PORTABLE on DOS: 11/12/23 FINDINGS: Lines and Tubes: None Lungs: Bibasilar subsegmental atelectasis Pleura: No effusion. No pneumothorax. Cardiomediastinal contours: Unremarkable Bones: Unremarkable IMPRESSION: Bibasilar subsegmental atelectasis
[2025-04-25] MEDS: NITROGLYCERIN 2% OINT 1GM PKG TD ONE (10:54)
[2025-04-25] MEDS: ONDANSETRON HCL 4 MG/2 ML VIAL IV ONE (13:31)
[2025-04-25] MEDS: MORPHINE SULFATE 4 MG/ML SYR/VIAL IV ONE (13:32)
[2025-04-25] MEDS ORDERED: NITROGLYCERIN 0.4 MG SL TAB SL PRN (15:15)
--- NOTE | 2025-04-25 16:53 | DVHHP2 ---
History of Present Illness Reason for Visit: Chest pain History of Present Illness 69-year-old male past medical history dementia anxiety arthritis cancer CHF COPD diabetes hyperlipidemia hypertension appendectomy gallbladder surgery hernia repair tonsillectomy chief complaint patient states that he has been having chest pain 2 hours prior to arrival he states he woke up in his sleep this morning in the pain developed he states it is a pressure pain in the midsternal nothing makes it better nothing was improving the pain despite even getting nitro. He denies any shortness of the breath but he states he has chronic oxygen use he uses 3 L at home he denies any calf pain or leg swelling. Patient was seen by paramedics he was given nitro and aspirin and he states he still with some pain when evaluating patient's labs and imaging from ED he had an echocardiogram completed January 24, 2025 EF was 65% Zofran morphine nitro was given CBC was unremarkable sodium was 134 troponin x2 was negative glucose was 302 BNP was 219 chest x-ray shows atelectasis no infectious process. With these findings we will admit and ask for Cardiology evaluation Past Medical History See HPI above Past Surgical History See HPI above Family History Reviewed, non-contributory to the management of this case. Lives: with Family Past Social History The patient lives at home, denies smoking, alcohol or illicit drugs abuse. Review of Systems Constitutional: No: Fever, Chills, Sweats, Weakness, Malaise, Other Eyes: No: Pain, Vision change, Conjunctivae inflammation, Eyelid inflammation, Other, Redness ENT: No: Ear pain, Ear discharge, Nose pain, Nose discharge, Nose congestion, Mouth pain, Mouth swelling, Throat pain, Throat swelling, Other Respiratory: No: Cough, Dry, Shortness of breath, SOB with excertion, Wheezing, Hemoptysis, Pleuritic Pain, Sputum, Wheezing, Other Cardiovascular: Chest Pain; No: Palpitations, Orthopnea, Paroxysmal Noc. Dyspnea, Edema, Lt Headedness, Other Gastrointestinal: No: Nausea, Vomiting, Abdominal Pain, Diarrhea, Constipation, Melena, Hematochezia, Other Genitourinary: No Dysuria, No Frequency, No Incontinence, No Hematuria, No Retention, No Other Musculoskeletal: No: other, neck pain, shoulder pain, arm pain, back pain, hand pain, leg pain, foot pain Skin: No: Rash, Lesions, Jaundice, Bruising, Other Neurological: No: Weakness, Numbness, Incoordination, Change in speech, Confusion, Seizures, Other Allergies: Coded Allergies: Iodine (Verified Allergy, Severe, 08/17/23) Medications Current Medications Medications Dose Ordered Sig/Phyllis Route Start Time Stop Time Status Last Admin Dose Admin Patient Own Medication 40 mg DAILY PO 04/26/25 10:00 UNV Patient Own Medication 17 unit DAILY SC 04/26/25 10:00 Patient Own Medication 40 mg DAILY PO 04/26/25 10:00 UNV Patient Own Medication 40 mg DAILY PO 04/26/25 10:00 UNV Patient Own Medication 100 mg DAILY PO 04/26/25 10:00 UNV Aspirin 81 mg DAILY PO 04/26/25 10:00 Atorvastatin Calcium 40 mg HS PO 04/25/25 22:00 Morphine Sulfate 2 mg Q30MP PRN IV 04/25/25 15:15 Acetaminophen 325 mg Q4HP PRN PO 04/25/25 15:15 Docusate Sodium 100 mg DAILY PO 04/26/25 10:00 Nitroglycerin 0.4 mg Q5MINP PRN SL 04/25/25 15:15 Ondansetron HCl 4 mg Q4HP PRN IV 04/25/25 15:15 Lisinopril 40 mg DAILY PO 04/26/25 10:00 Pantoprazole Sodium 40 mg DAILY PO 04/26/25 10:00 Trazodone HCl 100 mg HS PO 04/25/25 22:00 Exam Vital Signs Vital Signs Date Time Temp Pulse Resp B/P (MAP) Pulse Ox O2 Delivery O2 Flow Rate FiO2 04/25/25 14:00 66 17 122/88 04/25/25 13:32 97.9 97 97.9 04/25/25 13:32 Room Air* 0 21 General Appearance: Alert, Oriented X3, Cooperative, No acute distress HEENT: Atraumatic, PERRLA, EOMI, Mucous membr. moist/pink Respiratory: Clear to auscultation, Normal air movement Cardiovascular: Regular rate, Normal S1, Normal S2, No murmurs Abdominal: Normal bowel sounds, Soft, No tenderness, No hepatospenomegaly, No masses Extremities: No clubbing, No cyanosis, No edema, Normal pulses, No tenderness/swelling Skin: No rashes, No breakdown, No significant lesion Neuro: Normal gait, Normal speech, Strength at 5/5 X4 ext, Normal tone, Sensation intact, Cranial nerves 3-12 NL Psych/Mental Status: Mental status NL, Mood NL Labs/Xrays Chest x-ray shows atelectasis I reviewed labs, imaging CT scan abdomen pelvis, EKG and all diagnostic studies on this patient from ED records and the medical chart Labs Test 04/25/25 16:25 04/25/25 10:16 Range/Units White Blood Count 6.8 4.4-10.8 10^3/uL Red Blood Count 4.96 4.5-5.90 10^6/uL Hemoglobin 15.2 13.5-17.5 g/dL Hematocrit 44.6 41.0-53.0 % Mean Corpuscular Volume 89.8 80.0-100.0 fL Mean Corpuscular Hemoglobin 30.7 28.0-32.0 pg Mean Corpuscular Hemoglobin Concent 34.2 32.0-36.0 g/dL Red Cell Distribution Width 14.2 11.8-14.3 % Platelet Count 117 L 140-450 10^3/uL Mean Platelet Volume 9.5 6.9-10.8 fL Neutrophils (%) (Auto) 66.1 37.0-80.0 % Lymphocytes (%) (Auto) 20.6 10.0-50.0 % Monocytes (%) (Auto) 10.7 0.0-12.0 % Eosinophils (%) (Auto) 1.7 0.0-7.0 % Basophils (%) (Auto) 0.9 0.0-2.0 % Neutrophils # (Auto) 4.5 1.6-8.6 10 ^3/uL Lymphocytes # (Auto) 1.4 0.4-5.4 10 ^3/uL Monocytes # (Auto) 0.7 0-1.3 10 ^3/uL Eosinophils # (Auto) 0.1 0-0.8 10 ^3/uL Basophils # (Auto) 0.1 0-0.2 10 ^3/uL Nucleated Red Blood Cells 0.1 % Sodium Level 134 L 136-145 mmol/L Potassium Level 4.0 3.5-5.1 mmol/L Chloride Level 98 98-107 mmol/L Carbon Dioxide Level 29 20-31 mmol/L Anion Gap 7 5-15 Blood Urea Nitrogen 11 9-23 mg/dL Creatinine 0.98 0.700-1.30 mg/dL Glomerular Filtration Rate Calc 83 >90 mL/min BUN/Creatinine Ratio 11.2 10.0-20.0 Serum Glucose 302 H 74-106 mg/dL Calcium Level 9.4 8.7-10.4 mg/dL B-Type Natriuretic Peptide 21.99 0-100 pg/mL SEPSIS Sepsis Screen Date sepsis recognized/suspect: Apr 25, 2025 Time Sepsis recognized/suspect: 1331 Recent Procedure: No On Antibiotic Therapy: No Respiratory Rate >20: No Heart Rate >90: No Temp<36 C (96.8 F) or >38.3 C: No SBP <90 or MAP <65 mmHG: No New Acute Mental Status Change: No Is the patient on CPAP, BIPAP,: No Physician Orders Chest Portable (04/25/25 10:14) (Nf) Insulin Glargine (Lantus Solostar) (04/26/25 10:00) Admit (04/25/25 15:07) Code Status (04/25/25 15:07) Vital Signs .PER UNIT PROTOCOL (04/25/25 15:07) Head Of Sales And Marketing (04/25/25 15:07) May Elevate Hob ____ Degrees (04/25/25 15:07) Cardiac Diet-2gna,Lofat,Lochol (04/25/25 Dinner) Aspirin Tablet (04/26/25 10:00) Atorvastatin (Lipitor) (04/25/25 22:00) Morphine Sulfate Injection (04/25/25 15:15) Acetaminophen Tablet (Tylenol Tablet) (04/25/25 15:15) Docusate Sodium Capsule (Colace Capsule) (04/26/25 10:00) Complete Blood Count (04/26/25 04:00) Comprehensive Metabolic Panel (04/26/25 04:00) Prothrombin Time W/ Inr (04/25/25 15:07) Nitroglycerin Sublingual (Ntrostat Subli (04/25/25 15:15) Ondansetron Hcl (Zofran) (04/25/25 15:15) Electrocardigram (04/25/25 15:07) Troponin-I Hs (04/25/25 15:07) Cardiac Rehabilitation - Outpa (04/25/25 ) Stat Ekg For Chest Pain (04/25/25 15:07) Notify Md Of Changes From Base (04/25/25 15:07) Central Supply Nurse For 24 Hours (04/25/25 15:07) Emergency Dysrhythmia Protocol (04/25/25 15:07) Rhythm Strips Once Every Shift (04/25/25 15:07) Oxygen By Nasal Cannula (04/25/25 15:07) * Cardiology Consult (04/25/25 15:07) Incentive Spirometry Q 1hr (04/25/25 15:12) Lisinopril Tablet (Zestril Tablet) (04/26/25 10:00) Pantoprazole Tablet (Protonix Tablet) (04/26/25 10:00) Trazodone Hcl (Desyrel) (04/25/25 22:00) Vital Signs Date Time Temp Pulse Resp B/P (MAP) Pulse Ox O2 Delivery O2 Flow Rate FiO2 04/25/25 14:00 66 17 122/88 04/25/25 13:32 97.9 66 20 122/86 (98) 97 97.9 04/25/25 13:32 66 20 122/86 04/25/25 13:32 Room Air* 0 21 04/25/25 10:54 106/56 04/25/25 10:10 98.6 82 18 129/76 (93) 94 98.6 04/25/25 10:09 74 Laboratory Tests Test 04/25/25 10:16 White Blood Count 6.8 10^3/uL (4.4-10.8) Medications Medications Dose Ordered Sig/Phyllis Route Start Time Stop Time Status Last Admin Dose Admin Morphine Sulfate 4 mg ONCE ONCE IV 04/25/25 13:15 04/25/25 13:16 DC 04/25/25 13:32 4 MG Nitroglycerin 1 pkg ONCE ONCE TD 04/25/25 10:30 04/25/25 10:31 DC 04/25/25 10:54 1 PKG Ondansetron HCl 4 mg ONCE ONCE IV 04/25/25 13:15 04/25/25 13:16 DC 04/25/25 13:31 4 MG Assessment/Plan Assessment/Plan Acute chest pain likely d/t ACS trop x3 negative ekg no stemi ordered Cards consult pending eval and recs ordered asa atorvastatin ordered Echocardiogram follow-up results ordered morphine as needed for pain, ordered nitro prn acute atelectasis found on cxr cont incentive spirometer chronic problems dm uncontrolled ISS dementia anxiety arthritis cancer in remission chf no exacerbation copd no exacerbation o2 in place hld htn FEN/PPx No GI prophylaxis since no history of GI bleed or GERD's No DVT prophylaxis patient is ambulatory SCDs Diet Plan admit to telemetry cards consult follow-up recs Plan discussed with: Patient My Orders Orders - GERTRUDE JOY DNP Procedure Category Date Status Time (Nf) Insulin Glargine PHA 04/26/25 In Process (Lantus Solostar) 10:00 Admit ADMIT 04/25/25 Transmitted 15:07 Code Status CODE 04/25/25 Transmitted 15:07 Vital Signs TONNY 04/25/25 In Process 15:07 Head Of Sales And Marketing TONNY 04/25/25 In Process 15:07 May Elevate Hob ____ TONNY 04/25/25 In Process Degrees 15:07 Cardiac DIET 04/25/25 Transmitted Diet-2gna,Lofat,Lochol Dinner Aspirin Tablet PHA 04/26/25 In Process 10:00 Atorvastatin (Lipitor) PHA 04/25/25 In Process 22:00 Morphine Sulfate PHA 04/25/25 In Process Injection 15:15 Acetaminophen Tablet PHA 04/25/25 In Process (Tylenol Tablet) 15:15 Docusate Sodium PHA 04/26/25 In Process Capsule (Colace 10:00 Complete Blood Count LAB 04/26/25 Verified 04:00 Comprehensive LAB 04/26/25 Verified Metabolic Panel 04:00 Prothrombin Time W/ LAB 04/25/25 In Process INR 15:07 Nitroglycerin PHA 04/25/25 In Process Sublingual (Ntrostat 15:15 Ondansetron Hcl PHA 04/25/25 In Process (Zofran) 15:15 Electrocardigram EKG 04/25/25 Logged 15:07 Troponin-I Hs LAB 04/25/25 In Process 15:07 Cardiac TONNY 04/25/25 In Process Rehabilitation - Outpa Stat Ekg For Chest TONNY 04/25/25 In Process Pain 15:07 Notify Of Changes TONNY 04/25/25 In Process From Base 15:07 Central Supply Nurse For TONNY 04/25/25 In Process 24 Hours 15:07 Emergency Dysrhythmia TONNY 04/25/25 In Process Protocol 15:07 Rhythm Strips Once TONNY 04/25/25 In Process Every Shift 15:07 Oxygen By Nasal RT 04/25/25 Transmitted Cannula 15:07 * Cardiology Consult CONS 04/25/25 Transmitted 15:07 Incentive Spirometry ORDERS 04/25/25 Transmitted Q 1hr 15:12 Lisinopril Tablet PHA 04/26/25 In Process (Zestril Tablet) 10:00 Pantoprazole Tablet PHA 04/26/25 In Process (Protonix Tablet) 10:00 Trazodone Hcl PHA 04/25/25 In Process (Desyrel) 22:00 Date of Service: Apr 25, 2025 Billing Provider: GERTRUDE JOY DNP Common Visit Codes: [id number] INP/OBS CARE (HIGH) GERTRUDE JOY DNP Apr 25, 2025 16:53
[2025-04-25 17:04] LABS: INR 1.0 (0.9-1.15); Prothrombin Time 10.6 sec (9.3-11.8)
[2025-04-25 17:09] LABS: Urine Protein, UAD Negative (Negative)
[2025-04-25] MEDS: ONDANSETRON HCL 4 MG/2 ML VIAL IV PRN (18:53)
[2025-04-25] MEDS: MORPHINE SULFATE 4 MG/ML SYR/VIAL IV PRN (18:55)
[2025-04-25] MEDS: ATORVASTATIN 20 MG TAB PO SCH (22:04)
[2025-04-25 23:53] VITALS: PULSE 59; RESP 12; O2SAT 96
[2025-04-26] VITALS (9 sets, daily range): BP systolic 97–133; BP diastolic 57–78; PULSE 61–70; RESP 16–20; TEMP 97.1–98.3; O2SAT 88–97
[2025-04-26 05:22] LABS: Hematocrit 43.4 % (41.0-53.0); Hemoglobin 14.9 g/dL (13.5-17.5); Mean Corpuscular Hemoglobin 30.9 pg (28.0-32.0); Mean Corpuscular Volume 90.0 fL (80.0-100.0); Nucleated Red Blood Cells % 0.0 %
[2025-04-26 05:40] LABS: Alanine Aminotransferase 25 U/L (7-40); Albumin 4.2 g/dL (3.2-4.8); Alkaline Phosphatase 91 U/L (46-116); Anion Gap 9 (5-15); BUN/Creatinine Ratio 13.5 (10.0-20.0); Bilirubin, Total 0.5 mg/dL (0.2-1.0); Blood Urea Nitrogen 12 mg/dL (9-23); Calcium 9.3 mg/dL (8.7-10.4); Carbon Dioxide 29 mmol/L (20-31); Chloride 100 mmol/L (98-107); Potassium 3.8 mmol/L (3.5-5.1); Sodium 138 mmol/L (136-145); Total Protein 6.9 g/dL (5.7-8.2)
[2025-04-26 05:46] LABS: Glucose 198 mg/dL (74-106)
[2025-04-26] MEDS: DOCUSATE SOD 100 MG CAP PO SCH (09:14)
[2025-04-26] MEDS: PANTOPRAZOLE 40 MG TAB PO SCH (09:14)
[2025-04-26] MEDS: LISINOPRIL 20 MG TAB PO SCH (09:15)
[2025-04-26] MEDS ORDERED: PATIENTS OWN MEDICATION (Omeprazole (Omeprazole Dr) 40 MG) PO SCH (10:00)
[2025-04-26] MEDS: INSULIN GLARGINE SC SCH (10:00)
[2025-04-26] MEDS ORDERED: PATIENTS OWN MEDICATION (Lisinopril 40 MG) PO SCH (10:00)
[2025-04-26] MEDS ORDERED: PATIENTS OWN MEDICATION (Atorvastatin Calcium 40 MG) PO SCH (10:00)
[2025-04-26 10:02] LABS: Hepatitis B Surface Antigen Negative (Negative)
[2025-04-26 10:30] LABS: Hepatitis C Antibody Negative (Negative)
--- NOTE | 2025-04-26 14:00 | DVHINCON2 ---
Date Seen: Apr 26, 2025 Referring Physician RACHEL Griffith Reason for Consultation Acute chest pain, rule out ACS History of Present Illness This is a 69-year-old male patient who presents to emergency room with chief complaint of chest pain. The patient reports that the chest pain began at ap proximately 9:00 a.m. yesterday. He describes it as unprovoked, intermittent, sharp in nature, left-sided and nonradiating. He denies any associated symptoms. As the patient is very forgetful, he is unable to recall if there have been any alleviating or aggravating factors. Initial twelve lead electrocardiogram reveals normal sinus rhythm without any significant ST segment changes. Serial troponin levels have been negative. The patient is a very poor historian and states he has "memory issues". Medical history obtained from patient as well as previous medical records. Significant past medical history includes hypertension, dyslipidemia, type 2 diabetes mellitus, COPD on home O2, colon cancer status post colon resection and morbid obesity. He denies seeing a internal medicine physician assistant in the outpatient setting. Past Medical History Past medical history reviewed. No other significant than mentioned above. Past Surgical History Left hand Colon resection Family History: Alcoholism G8 FATHER FH: lung cancer G8 MOTHER Family History Family history reviewed. Social History Patient has a 10 pack-year history, quit smoking approximately 25 years ago Denies any illicit drug use Denies any alcohol use Allergies: Coded Allergies: Iodine (Verified Allergy, Severe, 08/17/23) Home Meds Active Scripts Meclizine Hcl (Meclizine Hcl) 25 Mg Tab, 25 MG PO DAILYPRN for 30 Days, #30 MG Prov:ALOK JEAN MD 01/25/25 Sitagliptin Phosphate (Januvia) 100 Mg Tab, 100 MG PO DAILY, #30 TAB Prov:ALOK JEAN MD 01/25/25 Omeprazole (Omeprazole Dr) 40 Mg Cap, 40 MG PO DAILY, #30 CAP Prov:ALOK JEAN MD 01/25/25 Trazodone Hcl (Trazodone Hcl) 100 Mg Tab, 100 MG PO DAILY for INSOMNIA, #30 MG Prov:ALOK JEAN MD 01/25/25 Metformin Hydrochloride (Metformin Hcl) 500 Mg Tab, 1000 MG PO BID for DIABETES for 30 Days, #60 MG Prov:ALOK JEAN MD 01/25/25 Furosemide (Furosemide) 20 Mg Tab, 20 MG PO BIDD for EDEMA for 30 Days, #60 MG Prov:ALOK JEAN MD 01/25/25 Glipizide (Glipizide) 5 Mg Tab, 5 MG PO BID for DIABETES, #60 MG Prov:ALOK JEAN MD 01/25/25 Insulin Glargine (Lantus Solostar) 100 Unit/Ml Inj, 35 UNIT SC DAILY for DIABETES for 30 Days, #1000 UNITS Prov:ALOK JEAN MD 01/25/25 Lisinopril (Lisinopril) 40 Mg Tab, 40 MG PO DAILY for HTN for 30 Days, #30 MG Prov:LAOK JEAN MD 01/25/25 Atorvastatin Calcium (ATORVASTATIN CALCIUM) 40 Mg Tab, 40 MG PO DAILY for 30 Days, #30 TAB Prov:ALOK JEAN MD 01/25/25 Reported Medications Ibuprofen Micronized (Ibuprofen) 800 Mg Tab, 800 MG PO, TAB 06/10/24 Hydrocodone-Acetaminophen (Hydrocodone Bitartrate/AC 5-325 mg) 1 Tab Tab, 1 TAB PO Q12HP PRN for PAIN SCALE 1 THRU 6, TAB 08/17/23 Home Meds Home medications reviewed. Current Medications Current Medications Medications (Trade) Dose Ordered Sig/Phyllis Route PRN Reason Start Time Stop Time Status Last Admin Patient Own Medication 40 mg DAILY PO 04/26/25 10:00 UNV Patient Own Medication 17 unit DAILY SC 04/26/25 10:00 Patient Own Medication 40 mg DAILY PO 04/26/25 10:00 UNV Patient Own Medication 40 mg DAILY PO 04/26/25 10:00 UNV Patient Own Medication 100 mg DAILY PO 04/26/25 10:00 UNV Aspirin 81 mg DAILY PO 04/26/25 10:00 04/26/25 09:13 Atorvastatin Calcium (Lipitor) 40 mg HS PO 04/25/25 22:00 04/25/25 22:04 Morphine Sulfate 2 mg Q30MP PRN IV FOR CHEST PAIN 04/25/25 15:15 04/26/25 09:11 Acetaminophen (Tylenol Tablet) 325 mg Q4HP PRN PO FOR HEADACHE 04/25/25 15:15 Docusate Sodium (Colace Capsule) 100 mg DAILY PO 04/26/25 10:00 Nitroglycerin (Ntrostat Sublingual) 0.4 mg Q5MINP PRN SL FOR CHEST PAIN 04/25/25 15:15 Ondansetron HCl (Zofran) 4 mg Q4HP PRN IV NAUSEA / VOMITING 04/25/25 15:15 04/25/25 18:53 Lisinopril (Zestril Tablet) 40 mg DAILY PO 04/26/25 10:00 04/26/25 09:15 Pantoprazole Sodium (Protonix Tablet) 40 mg DAILY PO 04/26/25 10:00 04/26/25 09:14 Trazodone HCl (Desyrel) 100 mg HS PO 04/25/25 22:00 04/25/25 22:04 Review of Systems Constitutional: No symptom reported Ears, Nose, & Throat: No symptom reported Eyes: No symptom reported Neurological: No symptoms reported Pulmonary/Respiratory: No symptoms reported Cardiovascular: Chest pain Gastrointestinal: No symptom reported Genitourinary: No symptom reported Musculoskeletal: No symptom reported Skin: No symptom reported Psychiatric: No symptom reported Endocrine: No symptom reported Hematologic/Lymphatic: No symptom reported Vital Signs Vital Signs Date Time Temp Pulse Resp B/P (MAP) Pulse Ox O2 Delivery O2 Flow Rate FiO2 04/26/25 13:01 97.6 67 20 133/78 (96) 92 97.6 04/26/25 08:00 Room Air* 0 21 Physical Exam General Appearance: Cooperative. Morbidly obese Pulmonary/Respiratory: Clear, bilateral breaths sounds. Cardiovascular/Chest: Regular rate and rhythm. Peripheral Pulses: 2+ Radial (R). 2+ Radial (L). 2+ Pedal (R). 2+ Pedal (L) Abdominal Exam: Normal bowel sounds. Ankle Exam: Negative ankle edema Lower extremities: Negative lower extremity edema Neuro/Mental Status: A/OX4, coherent. Thoughts/Psych: Normal thought pattern. Appropriate mood and affect. Good judgment and insight. Appearance: No acute distress. Skin Exam: Normal inspection. Normal color. Warm and dry. Labs/Diagnostic Data Labs Test 04/26/25 04:16 04/25/25 16:30 04/25/25 16:25 04/25/25 10:16 Range/Units White Blood Count 8.0 4.4-10.8 10^3/uL Red Blood Count 4.82 4.5-5.90 10^6/uL Hemoglobin 14.9 13.5-17.5 g/dL Hematocrit 43.4 41.0-53.0 % Mean Corpuscular Volume 90.0 80.0-100.0 fL Mean Corpuscular Hemoglobin 30.9 28.0-32.0 pg Mean Corpuscular Hemoglobin Concent 34.3 32.0-36.0 g/dL Red Cell Distribution Width 14.5 H 11.8-14.3 % Platelet Count 108 L 140-450 10^3/uL Mean Platelet Volume 9.3 6.9-10.8 fL Neutrophils (%) (Auto) 71.2 37.0-80.0 % Lymphocytes (%) (Auto) 18.1 10.0-50.0 % Monocytes (%) (Auto) 9.0 0.0-12.0 % Eosinophils (%) (Auto) 1.5 0.0-7.0 % Basophils (%) (Auto) 0.2 0.0-2.0 % Neutrophils # (Auto) 5.7 1.6-8.6 10 ^3/uL Lymphocytes # (Auto) 1.4 0.4-5.4 10 ^3/uL Monocytes # (Auto) 0.7 0-1.3 10 ^3/uL Eosinophils # (Auto) 0.1 0-0.8 10 ^3/uL Basophils # (Auto) 0 0-0.2 10 ^3/uL Nucleated Red Blood Cells 0.0 % Sodium Level 138 136-145 mmol/L Potassium Level 3.8 3.5-5.1 mmol/L Chloride Level 100 98-107 mmol/L Carbon Dioxide Level 29 20-31 mmol/L Anion Gap 9 5-15 Blood Urea Nitrogen 12 9-23 mg/dL Creatinine 0.89 0.700-1.30 mg/dL Glomerular Filtration Rate Calc 93 >90 mL/min BUN/Creatinine Ratio 13.5 10.0-20.0 Serum Glucose 198 #H 74-106 mg/dL Calcium Level 9.3 8.7-10.4 mg/dL Total Bilirubin 0.5 0.2-1.0 mg/dL Aspartate Amino Transferase (AST) 27 13-40 U/L Alanine Aminotransferase (ALT) 25 7-40 U/L Alkaline Phosphatase 91 46-116 U/L Total Protein 6.9 5.7-8.2 g/dL Albumin 4.2 3.2-4.8 g/dL Hepatitis B Surface Antigen Negative Negative Hepatitis C Antibody Negative Negative Urine Color Light-yellow Yellow Urine Clarity Clear Clear Urine pH 6.5 5.0-9.0 Urine Specific [place] 1.012 1.001-1.035 Urine Protein Negative Negative Urine Ketones Negative Negative Urine Blood Negative Negative /uL Urine Nitrite Negative Negative Urine Bilirubin Negative Negative Urine Urobilinogen Normal Negative mg/dL Urine Leukocyte Esterase Negative Negative /uL Urine RBC 1 0 - 3 /hpf Urine Microscopic WBC 1 0-3 /HPF Urine Squamous Epithelial Cells Few <5 /hpf Urine Bacteria None seen None Seen /hpf Urine Glucose 1+ H Normal mg/dL Prothrombin Time 10.6 9.3-11.8 sec Prothrombin Time INR 1.00 0.9-1.15 Troponin I High Sensitivity < 3 L </=54 ng/L B-Type Natriuretic Peptide 21.99 0-100 pg/mL Assessment Chest pain , likely noncardiac Hypertension Dyslipidemia COPD with home O2 use Type 2 diabetes mellitus ?Dementia History of tobacco use Morbid obesity Plan/Recommendation We will continue with the following plan/recommendations (Dr. Duarte): A transthoracic echocardiogram done on 01/28/2025 reveals an EF of 65%. The patient is extremely forgetful and a poor historian. Given clinical presentation, negative troponin level, and unremarkable 12 lead electrocardiogram, doubt ACS. Heart score: 3 points (low score). The patient has undergone multiple coronary angiogram at this facility. The most recent coronary angiogram with left heart catheterization took place on 08/19/2023 which revealed no significant coronary artery disease. At the time of assessment, the patient denies any cardiac symptoms. There is no further inpatient cardiac workup indicated at this time. The patient may follow up with Cardiology in the outpatient setting if deemed necessary. Thank you for all owing us to care for this patient. Please call with any questions or concerns. Critical care time spent: 44 minutes This medical document was created using an electronic medical record system with voice recognition software and computerized dictation system. Although this document has been carefully reviewed, there might still be some phonetic and typographical errors. Occasional wrong-word or ``sound-alike substitutions may have occurred due to the inherent limitations of voice recognition software. These areas are purely typographical due to imperfections of the software programs and do not reflect any compromise in the patient's medical care. Please read the chart carefully and recognize, using context, where these substitutions have occurred. Plan discussed with: Patient NYHA Physical activity limitations: NA Date of Service: Apr 26, 2025 Billing Provider: LESLIE HERNANDEZ Cardiology Common Codes: [id number] INP/OBS CARE (High) Cardiology Consultation Codes: [id number] CONSULT <45MIN LESLIE HERNANEDZ Apr 26, 2025 14:00
--- NOTE | 2025-04-26 14:20 | DVHPN2 ---
Reviewed: Care Plan, H&P, Labs, Medications, Previous Orders, Radiology Changes from previous H/P or p: No Changes Eyes: No Pain, No Vision change, No Conjunctivae inflammation, No Eyelid inflammation, No Other, No Redness ENT: No Ear pain, No Ear discharge, No Nose pain, No Nose discharge, No Nose congestion, No Mouth pain, No Mouth swelling, No Throat pain, No Throat swelling, No Other Cardiovascular: Chest Pain; No Palpitations, No Orthopnea, No Paroxysmal Noc. Dyspnea, No Edema, No Lt Headedness, No Other Respiratory: No Cough, No Dry, No Shortness of breath, No SOB with excertion, No Wheezing, No Hemoptysis, No Pleuritic Pain, No Sputum, No Other Gastrointestinal: No Nausea, No Vomiting, No Abdominal Pain, No Diarrhea, No Constipation, No Melena, No Hematochezia, No Other Genitourinary: No Dysuria, No Frequency, No Incontinence, No Hematuria, No Retention, No Other Musculoskeletal: No other, No neck pain, No shoulder pain, No arm pain, No back pain, No hand pain, No leg pain, No foot pain Skin: No Rash, No Lesions, No Jaundice, No Bruising, No Other Objective Vitals Vital Signs Date Time Temp Pulse Resp B/P (MAP) Pulse Ox O2 Delivery O2 Flow Rate FiO2 04/26/25 13:01 97.6 67 20 133/78 (96) 92 97.6 04/26/25 08:00 Room Air* 0 21 Intake/Output Intake and Output 04/26/25 07:00 Intake Total 100 ml Balance 100 ml Intake Oral 100 ml # Voids 1 Medications Current Medications Medications Dose Ordered Sig/Phyllis Route Start Time Stop Time Status Last Admin Dose Admin Patient Own Medication 40 mg DAILY PO 04/26/25 10:00 UNV Patient Own Medication 17 unit DAILY SC 04/26/25 10:00 Patient Own Medication 40 mg DAILY PO 04/26/25 10:00 UNV Patient Own Medication 40 mg DAILY PO 04/26/25 10:00 UNV Patient Own Medication 100 mg DAILY PO 04/26/25 10:00 UNV Aspirin 81 mg DAILY PO 04/26/25 10:00 04/26/25 09:13 81 MG Atorvastatin Calcium 40 mg HS PO 04/25/25 22:00 04/25/25 22:04 40 MG Morphine Sulfate 2 mg Q30MP PRN IV 04/25/25 15:15 04/26/25 09:11 2 MG Acetaminophen 325 mg Q4HP PRN PO 04/25/25 15:15 Docusate Sodium 100 mg DAILY PO 04/26/25 10:00 Nitroglycerin 0.4 mg Q5MINP PRN SL 04/25/25 15:15 Ondansetron HCl 4 mg Q4HP PRN IV 04/25/25 15:15 04/25/25 18:53 4 MG Lisinopril 40 mg DAILY PO 04/26/25 10:00 04/26/25 09:15 40 MG Pantoprazole Sodium 40 mg DAILY PO 04/26/25 10:00 04/26/25 09:14 40 MG Trazodone HCl 100 mg HS PO 04/25/25 22:00 04/25/25 22:04 100 MG Laboratory Results Laboratory Tests 04/26/25 04:16 Chemistry Test 04/26/25 04:16 Albumin 4.2 g/dL (3.2-4.8) Calcium Level 9.3 mg/dL (8.7-10.4) Total Protein 6.9 g/dL (5.7-8.2) Coagulation Test 04/25/25 16:25 Prothrombin Time 10.6 sec (9.3-11.8) Prothrombin Time INR 1.00 (0.9-1.15) LFT Test 04/26/25 04:16 Alanine Aminotransferase (ALT) 25 U/L (7-40) Alkaline Phosphatase 91 U/L (46-116) Aspartate Amino Transferase (AST) 27 U/L (13-40) Total Bilirubin 0.5 mg/dL (0.2-1.0) Urinalysis Test 04/25/25 16:30 Urine Color Light-yellow (Yellow) Urine Clarity Clear (Clear) Urine pH 6.5 (5.0-9.0) Urine Specific [place] 1.012 (1.001-1.035) Urine Protein Negative (Negative) Urine Ketones Negative (Negative) Urine Blood Negative /uL (Negative) Urine Nitrite Negative (Negative) Urine Bilirubin Negative (Negative) Urine Urobilinogen Normal mg/dL (Negative) Urine Leukocyte Esterase Negative /uL (Negative) Urine RBC 1 /hpf (0 - 3) Urine Microscopic WBC 1 /HPF (0-3) Urine Squamous Epithelial Cells Few /hpf (<5) Urine Bacteria None seen /hpf (None Seen) Urine Glucose 1+ mg/dL (Normal) H Labs and/or images reviewed: Labs reviewed by me, Image(s) reviewed by me Assessment/Plan Assessment/Plan Chest pain , likely noncardiac cardiology consult appreciated Hypertension Dyslipidemia COPD with home O2 use Type 2 diabetes mellitus ?Dementia History of colon cancer status post colectomy History of tobacco use Morbid obesity Heart catheterization 08/19/2023 negative No further cardiac workup Plan discussed with: Patient Date of Service: Apr 26, 2025 Billing Provider: IDALMIS CHOI MD Common Visit Codes: [id number] INP/OBS CARE(HIGH) IDALMIS CHOI MD Apr 26, 2025 14:20
[2025-04-26] MEDS: INSULIN LANTUS (GLARGINE) 1 /0.01ml (100units/ml) SC SCH (21:33)
[2025-04-26] MEDS: MUPIROCIN 2% OINT 15gm or 22gm FOR MRSA NARES EACHNOSTRI SCH (22:00)
[2025-04-27] VITALS (8 sets, daily range): BP systolic 103–128; BP diastolic 51–72; PULSE 63–87; RESP 17–20; TEMP 96.7–98.4; O2SAT 94–95
[2025-04-27] MEDS: HYDROcodone-ACET 5/325MG TAB PO ONE (04:59)
--- NOTE | 2025-04-27 10:50 | DVHPN2 ---
Reviewed: Care Plan, H&P, Labs, Medications, Previous Orders, Radiology Changes from previous H/P or p: No Changes Eyes: No Pain, No Vision change, No Conjunctivae inflammation, No Eyelid inflammation, No Other, No Redness ENT: No Ear pain, No Ear discharge, No Nose pain, No Nose discharge, No Nose congestion, No Mouth pain, No Mouth swelling, No Throat pain, No Throat swelling, No Other Cardiovascular: Chest Pain; No Palpitations, No Orthopnea, No Paroxysmal Noc. Dyspnea, No Edema, No Lt Headedness, No Other Respiratory: No Cough, No Dry, No Shortness of breath, No SOB with excertion, No Wheezing, No Hemoptysis, No Pleuritic Pain, No Sputum, No Other Gastrointestinal: No Nausea, No Vomiting, No Abdominal Pain, No Diarrhea, No Constipation, No Melena, No Hematochezia, No Other Genitourinary: No Dysuria, No Frequency, No Incontinence, No Hematuria, No Retention, No Other Musculoskeletal: No other, No neck pain, No shoulder pain, No arm pain, No back pain, No hand pain, No leg pain, No foot pain Skin: No Rash, No Lesions, No Jaundice, No Bruising, No Other Objective Vitals Vital Signs Date Time Temp Pulse Resp B/P (MAP) Pulse Ox O2 Delivery O2 Flow Rate FiO2 04/27/25 09:22 97.8 77 20 119/70 (86) 94 97.8 04/26/25 20:00 Nasal Cannula* 3 32 Intake/Output Intake and Output 04/27/25 07:00 Intake Total 860 ml Output Total 200 ml Balance 660 ml Intake Oral 860 ml Output Urine Total 200 ml # Voids 1 Medications Current Medications Medications Dose Ordered Sig/Phyllis Route Start Time Stop Time Status Last Admin Dose Admin Patient Own Medication 40 mg DAILY PO 04/26/25 10:00 UNV Patient Own Medication 40 mg DAILY PO 04/26/25 10:00 UNV Patient Own Medication 40 mg DAILY PO 04/26/25 10:00 UNV Patient Own Medication 100 mg DAILY PO 04/26/25 10:00 UNV Aspirin 81 mg DAILY PO 04/26/25 10:00 04/26/25 09:13 81 MG Atorvastatin Calcium 40 mg HS PO 04/25/25 22:00 04/26/25 21:27 40 MG Morphine Sulfate 2 mg Q30MP PRN IV 7/15/25 15:15 04/26/25 09:11 2 MG Acetaminophen 325 mg Q4HP PRN PO 04/25/25 15:15 Docusate Sodium 100 mg DAILY PO 04/26/25 10:00 Nitroglycerin 0.4 mg Q5MINP PRN SL 04/25/25 15:15 Ondansetron HCl 4 mg Q4HP PRN IV 04/25/25 15:15 04/25/25 18:53 4 MG Lisinopril 40 mg DAILY PO 04/26/25 10:00 04/26/25 09:15 40 MG Pantoprazole Sodium 40 mg DAILY PO 04/26/25 10:00 04/26/25 09:14 40 MG Trazodone HCl 100 mg HS PO 04/25/25 22:00 04/26/25 21:27 100 MG Insulin Glargine 20 units HS SC 04/26/25 22:00 04/26/25 21:33 20 UNITS Mupirocin 1 applic BID EACHNOSTRI 04/26/25 22:00 05/01/25 21:59 Laboratory Results Laboratory Tests 04/26/25 04:16 Urinalysis Test 04/25/25 16:30 Urine Color Light-yellow (Yellow) Urine Clarity Clear (Clear) Urine pH 6.5 (5.0-9.0) Urine Specific [place] 1.012 (1.001-1.035) Urine Protein Negative (Negative) Urine Ketones Negative (Negative) Urine Blood Negative /uL (Negative) Urine Nitrite Negative (Negative) Urine Bilirubin Negative (Negative) Urine Urobilinogen Normal mg/dL (Negative) Urine Leukocyte Esterase Negative /uL (Negative) Urine RBC 1 /hpf (0 - 3) Urine Microscopic WBC 1 /HPF (0-3) Urine Squamous Epithelial Cells Few /hpf (<5) Urine Bacteria None seen /hpf (None Seen) Urine Glucose 1+ mg/dL (Normal) H Microbiology Microbiology Date/Time Source Procedure Growth Status 04/26/25 01:47 Nose MRSA Screen - Final Complete Labs and/or images reviewed: Labs reviewed by me, Image(s) reviewed by me Assessment/Plan Assessment/Plan Chest pain , likely noncardiac cardiology consult appreciated no further cardiac work up Gait instability with recurrent falls: Physical therapy ordered Acute exacerbation of chronic back pain: [place] Hypertension Dyslipidemia COPD with home O2 use Type 2 diabetes mellitus ?Dementia History of colon cancer status post colectomy History of tobacco use Morbid obesity Heart catheterization 08/19/2023 negative Patient came from [facility] Possible discharge on Thursday Plan discussed with: Patient My Orders Orders - IDALMIS CHOI MD Procedure Category Date Status Time Insulin Lantus PHA 04/26/25 In Process (Glargine) (Lantus) 22:00 Mupirocin 2% Oint PHA 04/26/25 In Process Mrsa Nares (Bactroban 22:00 Date of Service: Apr 27, 2025 Billing Provider: IDALMIS CHOI MD Common Visit Codes: [id number] INP/OBS CARE(HIGH) IDALMIS CHOI MD Apr 27, 2025 10:50
[2025-04-27] MEDS: HYDROcodone-ACET 10/325MG TAB PO ONE (11:00)
[2025-04-27] MEDS: ACETAMINOPHEN 325 MG TAB PO PRN (18:55)
[2025-04-28] VITALS (8 sets, daily range): BP systolic 107–138; BP diastolic 61–82; PULSE 60–88; RESP 17–18; TEMP 97.3–98; O2SAT 94–99
[2025-04-28] MEDS: HYDROcodone-ACET 10/325MG TAB PO PRN (01:22)
--- NOTE | 2025-04-28 10:46 | DVHPN2 ---
Reviewed: Care Plan, H&P, Labs, Medications, Previous Orders, Radiology Changes from previous H/P or p: No Changes General: Per HPI Eyes: No Pain, No Vision change, No Conjunctivae inflammation, No Eyelid inflammation, No Other, No Redness ENT: No Ear pain, No Ear discharge, No Nose pain, No Nose discharge, No Nose congestion, No Mouth pain, No Mouth swelling, No Throat pain, No Throat swelling, No Other Cardiovascular: Chest Pain; No Palpitations, No Orthopnea, No Paroxysmal Noc. Dyspnea, No Edema, No Lt Headedness, No Other Respiratory: No Cough, No Dry, No Shortness of breath, No SOB with excertion, No Wheezing, No Hemoptysis, No Pleuritic Pain, No Sputum, No Other Gastrointestinal: No Nausea, No Vomiting, No Abdominal Pain, No Diarrhea, No Constipation, No Melena, No Hematochezia, No Other Genitourinary: No Dysuria, No Frequency, No Incontinence, No Hematuria, No Retention, No Other Musculoskeletal: No other, No neck pain, No shoulder pain, No arm pain, No back pain, No hand pain, No leg pain, No foot pain Skin: No Rash, No Lesions, No Jaundice, No Bruising, No Other Objective Vitals Vital Signs Date Time Temp Pulse Resp B/P (MAP) Pulse Ox O2 Delivery O2 Flow Rate FiO2 04/28/25 09:00 97.9 88 18 138/71 (93) 99 97.9 04/28/25 08:00 Nasal Cannula* 3 32 Intake/Output Intake and Output 04/28/25 07:00 Intake Total 1250 ml Balance 1250 ml Intake Oral 1250 ml # Voids 9 # Bowel Movements 1 General Appearance: Alert, Oriented X3, Cooperative, No acute distress HEENT: Atraumatic Neck: Carotid [place] Medications Current Medications Medications Dose Ordered Sig/Phyllis Route Start Time Stop Time Status Last Admin Dose Admin Patient Own Medication 40 mg DAILY PO 04/26/25 10:00 UNV Patient Own Medication 40 mg DAILY PO 04/26/25 10:00 UNV Patient Own Medication 40 mg DAILY PO 04/26/25 10:00 UNV Patient Own Medication 100 mg DAILY PO 04/26/25 10:00 UNV Aspirin 81 mg DAILY PO 04/26/25 10:00 04/27/25 10:47 81 MG Atorvastatin Calcium 40 mg HS PO 04/25/25 22:00 04/27/25 21:27 40 MG Morphine Sulfate 2 mg Q30MP PRN IV 04/25/25 15:15 04/26/25 09:11 2 MG Acetaminophen 325 mg Q4HP PRN PO 04/25/25 15:15 04/27/25 18:55 325 MG Docusate Sodium 100 mg DAILY PO 04/26/25 10:00 04/27/25 10:47 100 MG Nitroglycerin 0.4 mg Q5MINP PRN SL 04/25/25 15:15 Ondansetron HCl 4 mg Q4HP PRN IV 04/25/25 15:15 04/25/25 18:53 4 MG Lisinopril 40 mg DAILY PO 04/26/25 10:00 04/27/25 10:45 40 MG Pantoprazole Sodium 40 mg DAILY PO 04/26/25 10:00 04/27/25 10:47 40 MG Trazodone HCl 100 mg HS PO 04/25/25 22:00 04/27/25 21:27 100 MG Insulin Glargine 20 units HS SC 04/26/25 22:00 04/27/25 21:28 20 UNITS Mupirocin 1 applic BID EACHNOSTRI 04/26/25 22:00 05/01/25 21:59 04/27/25 21:27 1 APPLIC Acetaminophen/ Hydrocodone Bitart 1 tab Q6HP PRN PO 04/27/25 11:00 04/28/25 07:47 1 TAB Laboratory Results Laboratory Tests 04/26/25 04:16 Urinalysis Test 04/25/25 16:30 Urine Color Light-yellow (Yellow) Urine Clarity Clear (Clear) Urine pH 6.5 (5.0-9.0) Urine Specific [place] 1.012 (1.001-1.035) Urine Protein Negative (Negative) Urine Ketones Negative (Negative) Urine Blood Negative /uL (Negative) Urine Nitrite Negative (Negative) Urine Bilirubin Negative (Negative) Urine Urobilinogen Normal mg/dL (Negative) Urine Leukocyte Esterase Negative /uL (Negative) Urine RBC 1 /hpf (0 - 3) Urine Microscopic WBC 1 /HPF (0-3) Urine Squamous Epithelial Cells Few /hpf (<5) Urine Bacteria None seen /hpf (None Seen) Urine Glucose 1+ mg/dL (Normal) H Microbiology Microbiology Date/Time Source Procedure Growth Status 04/26/25 01:47 Nose MRSA Screen - Final Complete Labs and/or images reviewed: Labs reviewed by me, Image(s) reviewed by me Assessment/Plan Assessment/Plan Chest pain , likely noncardiac cardiology consult appreciated no further cardiac work up Gait instability with recurrent falls: Physical therapy ordered Acute exacerbation of chronic back pain: [place] Hypertension Dyslipidemia COPD with home O2 use Type 2 diabetes mellitus ?Dementia History of colon cancer status post colectomy History of tobacco use Morbid obesity Heart catheterization 08/19/2023 negative Patient came from [facility] Possible discharge soon Plan discussed with: Patient Date of Service: Apr 29, 2025 Billing Provider: DEANNE SAMUEL DO Common Visit Codes: [id number] INP/OBS CARE(HIGH) DEANNE SAMUEL DO Apr 28, 2025 10:46
[2025-04-29 05:00] VITALS: PULSE 73; RESP 18; TEMP 97.8
[2025-04-29 05:15] VITALS: BP 106/59; O2SAT 94
[2025-04-29 08:00] VITALS: BP 110/81; PULSE 65; PULSE 66; PULSE 79; RESP 17; RESP 20; TEMP 97.8; O2SAT 94; O2SAT 96
[2025-04-29 13:00] VITALS: BP 119/76; PULSE 62; RESP 20; TEMP 97.7; O2SAT 94
--- NOTE | 2025-04-29 13:45 | DVHDS2 ---
Discharge Summary Date of Admission Apr 25, 2025 at 15:07 Date of Discharge: Apr 29, 2025 Labs/Diagnostic Data: Laboratory Results Test 04/28/25 21:32 04/26/25 04:16 04/25/25 16:30 04/25/25 16:25 POC Glucose 296 mg/dl (70-106) White Blood Count 8.0 10^3/uL (4.4-10.8) Red Blood Count 4.82 10^6/uL (4.5-5.90) Hemoglobin 14.9 g/dL (13.5-17.5) Hematocrit 43.4 % (41.0-53.0) Mean Corpuscular Volume 90.0 fL (80.0-100.0) Mean Corpuscular Hemoglobin 30.9 pg (28.0-32.0) Mean Corpuscular Hemoglobin Concent 34.3 g/dL (32.0-36.0) Red Cell Distribution Width 14.5 % (11.8-14.3) Platelet Count 108 10^3/uL (140-450) Mean Platelet Volume 9.3 fL (6.9-10.8) Neutrophils (%) (Auto) 71.2 % (37.0-80.0) Lymphocytes (%) (Auto) 18.1 % (10.0-50.0) Monocytes (%) (Auto) 9.0 % (0.0-12.0) Eosinophils (%) (Auto) 1.5 % (0.0-7.0) Basophils (%) (Auto) 0.2 % (0.0-2.0) Neutrophils # (Auto) 5.7 10 ^3/uL (1.6-8.6) Lymphocytes # (Auto) 1.4 10 ^3/uL (0.4-5.4) Monocytes # (Auto) 0.7 10 ^3/uL (0-1.3) Eosinophils # (Auto) 0.1 10 ^3/uL (0-0.8) Basophils # (Auto) 0 10 ^3/uL (0-0.2) Nucleated Red Blood Cells 0.0 % Sodium Level 138 mmol/L (136-145) Potassium Level 3.8 mmol/L (3.5-5.1) Chloride Level 100 mmol/L (98-107) Carbon Dioxide Level 29 mmol/L (20-31) Anion Gap 9 (5-15) Blood Urea Nitrogen 12 mg/dL (9-23) Creatinine 0.89 mg/dL (0.700-1.30) Glomerular Filtration Rate Calc 93 mL/min (>90) BUN/Creatinine Ratio 13.5 (10.0-20.0) Serum Glucose 198 mg/dL (74-106) Calcium Level 9.3 mg/dL (8.7-10.4) Total Bilirubin 0.5 mg/dL (0.2-1.0) Aspartate Amino Transferase (AST) 27 U/L (13-40) Alanine Aminotransferase (ALT) 25 U/L (7-40) Alkaline Phosphatase 91 U/L (46-116) Total Protein 6.9 g/dL (5.7-8.2) Albumin 4.2 g/dL (3.2-4.8) Hepatitis B Surface Antigen Negative (Negative) Hepatitis C Antibody Negative (Negative) Urine Color Light-yellow (Yellow) Urine Clarity Clear (Clear) Urine pH 6.5 (5.0-9.0) Urine Specific [place] 1.012 (1.001-1.035) Urine Protein Negative (Negative) Urine Ketones Negative (Negative) Urine Blood Negative /uL (Negative) Urine Nitrite Negative (Negative) Urine Bilirubin Negative (Negative) Urine Urobilinogen Normal mg/dL (Negative) Urine Leukocyte Esterase Negative /uL (Negative) Urine RBC 1 /hpf (0 - 3) Urine Microscopic WBC 1 /HPF (0-3) Urine Squamous Epithelial Cells Few /hpf (<5) Urine Bacteria None seen /hpf (None Seen) Urine Glucose 1+ mg/dL (Normal) Prothrombin Time 10.6 sec (9.3-11.8) Prothrombin Time INR 1.00 (0.9-1.15) Troponin I High Sensitivity < 3 ng/L (</=54) Test 04/25/25 10:16 B-Type Natriuretic Peptide 21.99 pg/mL (0-100) Other Laboratory Tests 04/26/25 04:16 Brief Hx & Hospital Course: Chest pain , likely noncardiac cardiology consult Gait instability with recurrent falls: Physical therapy ordered Acute exacerbation of chronic back pain: [place] Hypertension Dyslipidemia COPD with home O2 use Type 2 diabetes mellitus ?Dementia History of colon cancer status post colectomy History of tobacco use Morbid obesity Heart catheterization 08/19/2023 negative Patient came from [facility] back to [facility] Condition at Discharge: Fair Final Diagnosis/Problems List see above Discharge Disposition: Home Discharge Instruct/Medications Diet: Cardiac 2g Na,low cholest Activity: No Restrictions, As Tolerated Scheduled Atorvastatin Calcium (Atorvastatin Calcium), 40 MG PO DAILY Furosemide (Furosemide), 20 MG PO BIDD Glipizide (Glipizide), 5 MG PO BID Insulin Glargine (Lantus Solostar), 35 UNIT SC DAILY Lisinopril (Lisinopril), 40 MG PO DAILY Meclizine Hcl (Meclizine Hcl), 25 MG PO DAILYPRN Metformin Hydrochloride (Metformin Hcl), 1,000 MG PO BID Omeprazole (Omeprazole Dr), 40 MG PO DAILY Sitagliptin Phosphate (Januvia), 100 MG PO DAILY Trazodone Hcl (Trazodone Hcl), 100 MG PO DAILY Scheduled PRN Hydrocodone-Acetaminophen (Hydrocodone Bitartrate/AC 5-325 mg), 1 TAB PO Q12HP PRN for PAIN SCALE 1 THRU 6, (Reported) Miscellaneous Medications Ibuprofen Micronized (Ibuprofen), 800 MG PO, (Reported) Discharge Statement: "Patient was advised to return to the ER or call 911 if any headaches, dizziness, shortness of breath, chest pain, abdominal pain, bleeding, fevers, or worsening of medical condition. Patient was counseled about treatment plan, medications, possible side effects, patientverbalized understanding. All questions were answered to the best of my ability. This discharge took greater then 30 minutes in planning, reviewing documentation, counseling the patient, and discussing with other team members." ASSESSMENT ASSESSMENT Assessment Date of Service: Apr 29, 2025 Billing Provider: DEANNE SAMUEL DO Common Visit Codes: 02822-NTQ/OBS DISCH DAY >30min DEANNE SAMUEL DO Apr 29, 2025 13:45
== END 2025-04-29 17:00 | disposition home or self-care (01) | DRG 205 ==
LOC: ER 10:02 → EDBD 10:02 → EDUNIT# 10:02 → OVERFLOW 15:07 → WEST WING 04-26 01:08 → TELE-EAST 04-26 16:10
PROVIDERS: ADMIT Internal Medicine; ATTEND Internal Medicine
DX: M94.0 Chondrocostal junction syndrome [Tietze] (principal); J96.01 Acute respiratory failure with hypoxia; J98.11 Atelectasis; Z68.41 Body mass index [BMI] 40.0-44.9, adult; F03.90 Unspecified dementia, unspecified severity, without behavioral disturbance, psychotic disturbance, mood disturbance, and anxiety; E11.65 Type 2 diabetes mellitus with hyperglycemia; J44.9 Chronic obstructive pulmonary disease, unspecified; E78.5 Hyperlipidemia, unspecified; I50.9 Heart failure, unspecified; F41.9 Anxiety disorder, unspecified; E66.01 Morbid (severe) obesity due to excess calories; R26.89 Other abnormalities of gait and mobility; G89.29 Other chronic pain; M19.09 Primary osteoarthritis, other specified site; R29.6 Repeated falls; Z88.8 Allergy status to other drugs, medicaments and biological substances; Z90.49 Acquired absence of other specified parts of digestive tract; Z80.1 Family history of malignant neoplasm of trachea, bronchus and lung; Z79.84 Long term (current) use of oral hypoglycemic drugs; Z79.4 Long term (current) use of insulin; Z79.1 Long term (current) use of non-steroidal anti-inflammatories (NSAID); Z87.891 Personal history of nicotine dependence; Z85.038 Personal history of other malignant neoplasm of large intestine; Z99.81 Dependence on supplemental oxygen
CPT/HCPCS: 36415; 71045; 80048; 80053; 81001; 82962; 83880; 84484; 85025; 85610; 86803; 87081; 87340; 93005; 96374; 96375; 97110; 97116; 97163; 97530; G0378; J1815; J2405